=== PATIENT | female | born 1945 | race Caucasian/White ===

== ENCOUNTER 2016-09-25 05:55 | Inpatient (IN) | payer MEDICARE, BC ==
[~2016-09-25 05:55] MED LIST: Buffered Lidocaine 1% SYR 3ML* 3 ML/SYR SYRINGE INTRADERM ONE
[2016-09-25] MEDS ORDERED: ceFAZolin 2 GM PREMIX (*) 2 GM/50 ML BAG IVPB ONE (06:19)
[2016-09-25] MEDS ORDERED: Buffered Lidocaine 1% SYR 3ML* 3 ML/SYR SYRINGE ONE (06:19)
[2016-09-25] MEDS ORDERED: Famotidine IV* 10 MG/ML 2 ML (20 mg) ONE (06:19)
[2016-09-25] MEDS ORDERED: fentaNYL* 50 MCG/ML 2 ML VIAL (100 MCG VIAL) ONE (07:46)
[2016-09-25] MEDS ORDERED: Midazolam* 1 MG/ML 2 ML VIAL (2 MG) ONE (07:46)
[2016-09-25] MEDS ORDERED: Bupivacaine 0.5% SDV PF* 30 ML VIAL ONE (07:52)
[2016-09-25] MEDS ORDERED: Bupivacaine 0.5% W/EPI SDV* 30 ML VIAL ONE (07:52)
[2016-09-25] MEDS ORDERED: Dexamethasone IV* 4 MG/ML 1 ML (4 MG) ONE (08:31)
[2016-09-25] MEDS ORDERED: Ondansetron INJ* 2 MG/ML VIAL ONE ×2 (08:31→16:03)
[2016-09-25] MEDS ORDERED: Propofol* 10 MG/ML 20 ML BTL IV PUSH ONE (08:31)
[2016-09-25] MEDS ORDERED: Succinylcholine* 20 MG/ML 10 ML VIAL ONE (08:31)
[2016-09-25] MEDS ORDERED: Lidocaine 2% MPF* 2 ML VIAL ONE (08:31)
[2016-09-25] MEDS ORDERED: Phenylephrine IV* 40 MCG/ML 10 ML SYRINGE ONE ×2 (08:32→09:50)
[2016-09-25] MEDS ORDERED: EPHEDrine (Pressors)* 50 MG/ML VIAL ONE ×2 (08:57→10:53)
[2016-09-25] MEDS ORDERED: Metoclopramide IV* 5 MG/ML 2 ML VIAL IV PRN (10:13)
[2016-09-25] MEDS ORDERED: Scopolamine 1.5 mg* PATCH TRANSDERM PRN (10:13)
[2016-09-25] MEDS ORDERED: diPHENhydraMINE IV* 50 MG/ML 1 ml VIAL (BENADRYL) IV PRN (12:47)
[2016-09-25] MEDS ORDERED: oxyCODONE/Acetamin 5/325 MG* TAB PO PRN (12:47)
[2016-09-25] MEDS ORDERED: Ondansetron INJ* 2 MG/ML VIAL IV PRN (12:47)
[2016-09-25] MEDS ORDERED: oxyCODONE TAB* 5 MG TAB PO PRN (12:47)
[2016-09-25] MEDS ORDERED: Acetaminophen TAB* 325 MG PO PRN (12:47)
[2016-09-25] MEDS ORDERED: Enoxaparin(*) 40 MG/0.4 ML SYR SUBCUT SCH (13:00)
--- NOTE | 2016-09-25 14:43 | RAD ---
INDICATION: Traumatic fracture proximal right humerus operative reduction and internal fixation, intraoperative guidance. COMPARISON: Comparison is made with a prior x-ray study of the right humerus from September 13, 2016. TECHNIQUE: 37.9 seconds of intermittent fluoroscopic guidance were provided and 5 spot films of the right humerus were obtained in the operating room. FINDINGS: The films demonstrate placement of a plate along the lateral aspect of the proximal humerus spanning the fracture fragments transfixed with multiple screws. There are 2 screws deep to the surgical plate likely representing interfragmentary screws. IMPRESSION: INTRAOPERATIVE CONTROL FILMS. CPT II Codes: 6045F
[2016-09-25 15:35] LABS: Comments Flag Yes; Hematocrit 29 % (35-47); Hemoglobin 9.5 g/dl (12.0-16.0)
[2016-09-25] MEDS: ceFAZolin 1 GM in Dextrose (*) 1 GM/50 ML BAG IVPB SCH (17:24)
[2016-09-25] MEDS: Enoxaparin(*) 40 MG/0.4 ML SYR SUBCUT SCH (17:31)
[2016-09-25] MEDS ORDERED: Sevoflurane* 1 BTL ONE (18:44)
[2016-09-25] MEDS: Docusate CAP* 100 MG PO SCH (20:32)
[2016-09-25] MEDS: Metoprolol Tartrate TAB* 50 mg PO SCH (20:32)
[2016-09-25] MEDS: Latanoprost 0.005%* 2.5 ml BTL BOTH EYES SCH (20:33)
[2016-09-26] MEDS: ceFAZolin 1 GM in Dextrose (*) 1 GM/50 ML BAG IVPB SCH ×2 (00:30→09:20)
--- NOTE | 2016-09-26 01:04 | OP ---
DATE OF OPERATION: 09/25/16 - ROOM #333 DATE OF : 47 SURGEON: Marv Potter MD VP RESEARCH: MERVAT [place] ANESTHESIOLOGIST: Dr. Wagoner. ANESTHESIA: General with block. 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 OPERATIVE PROCEDURE: Open repair of right proximal humerus nonunion with allograft bone graft. INDICATIONS: Lakeisha fractured her right proximal humerus about 2-1/2 months ago. 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 It has really limited her ability use to the arm and caused her disability in the arm. She is in quite a bit of pain. We talked about risks and benefits and she elected to proceed with repair of the right humerus nonunion. ESTIMATED BLOOD LOSS: 500 mL. COMPLICATIONS: None. FINDINGS: Oligotrophic nonunion with miller motion at the nonunion site. There was also some loss of medial calcar after the shaft was reduced. DESCRIPTION OF PROCEDURE: Lakeisha was seen in the preoperative holding area and the correct site and side were marked. We came back to the operating room where the block was performed and then anesthesia was induced. The patient was positioned in the beach chair position and the arm was prepped and draped in the usual fashion. A formal time-out was performed. A standard anterolateral incision was made from the coracoid process down the lateral border of the biceps about three-quarters the length of the arm. Dissection was carried down through the subcutaneous tissue to the deltopectoral fascia. This was split and there were quite a few very large perforators coming to the cephalic vein. Ultimately, the level of the distal deltopectoral groove got into one of these perforators and I ultimately ended up tying off that segment of the cephalic vein and cauterizing the bleeder. I then went ahead and continued to split the fascia, the rest of the length of the arm. Dissection was carried down very carefully. She was very oozy until I had to go slow and cauterize all the bleeders. Ultimately we got down and I opened the interval between the biceps and the brachialis. The brachialis was split and subperiosteal dissection at this point revealed the nonunion. I released a little bit of the anterior insertion of the triceps tendon in order to facilitate exposure. I then went ahead and cleaned up the edges of the nonunion. Again, it was an oligotrophic nonunion and there was new bone formation but nothing was stable and there was miller motion at the nonunion site. I took a little bit of time but I was able to clean up and get back to fresh and healthy bone edges. There was a long anterolateral spike. I used this to obtain an anatomic cortical read in this area. Two 3.5 mm lag screws were placed and excellent compression was obtained. With the humerus back in continuity I was able to at this point bring in the long Synthes proximal humerus locking plates. This was positioned and secured with some K-wires. I then went ahead and placed the proximal and distal screws. At this point, I checked fluoroscopy and I did not like the position of the plate. I thought it was too proximal and would impinge and so I went ahead and removed the plate and shifted the plate about 1 cm distal. Again, I wired the plate and checked the fluoroscopy, I was much happier with the position of the plate, so I went ahead and fixed it with all the proximal screws including a couple of kickstand screws and then the plate was secured distally with cortical and I believe one locking screw distally. The plate fit much more nicely on the bone, everything looked good. After the debridement of the nonunion, there was a bit of a deficit in the medial calcar where she was having motion at the nonunion. I went ahead and at this point took 15 mL of cancellous Allograft chips and packed these into the nonunion site. Everything looked good, so I went ahead and irrigated and I closed the deltopectoral fascia with some 2-0 Polysorb suture. The subcutaneous tissue and skin was reapproximated with buried 3-0 Polysorb sutures and then the skin was closed with steve. Arm was then washed and dried and the wounds were dressed with Xeroform, 4x4's, ABD's, Bharat wraps distally and the dressings were secured with foam tape proximally. She was then placed in the sling, woken back up and taken to the recovery room in stable condition. [id number]/[facility] #: [id number] SAMANTHA
[2016-09-26 06:40] LABS: BUN/Creatinine Ratio 25.9 (8-20); Calcium 8.6 mg/dL (8.6-10.3); EGFR African American 61.9 (>60); EGFR Non-African American 48.1 (>60); Potassium 4.1 mmol/L (3.5-5.0)
[2016-09-26] MEDS: oxyCODONE/Acetamin 5/325 MG* TAB PO PRN ×3 (06:54→15:38)
[2016-09-26] MEDS: Metoprolol Tartrate TAB* 50 mg PO SCH ×2 (09:22→19:48)
[2016-09-26] MEDS: Docusate CAP* 100 MG PO SCH ×2 (09:22→19:48)
[2016-09-26] MEDS: Allopurinol TAB* 300 MG PO SCH (09:22)
[2016-09-26] MEDS: Hydrochlorothiazide TAB* 25 MG PO SCH (09:23)
[2016-09-26] MEDS: Vitamin THERAPEUTIC TAB PO SCH (09:23)
--- NOTE | 2016-09-26 12:28 | PN ---
Progress Note - Progress Note SOAP: Subjective: [Pt was sitting up in chair when she was seen this morning. Pt states that she is not in any pain so long as she uses her pain medication. Pt states that she had a tough night last night. She states that she would like to not be discharged today and feels she would benefit from one more night in the hospital. ] Objective: [General: Pt is awake, alert and oriented. In no acute distress MSK: RUE: pt has sensation to light touch in RUE with the exception of the tip of her thumb. Tip of pts thumb has slightly decreased sensitivity. Pt is able to wiggle fingers. 2+ radial pulse. ] Vital Signs Temp 98.0 F 09/26/16 11:39 Pulse 94 09/26/16 11:39 Resp 20 09/26/16 11:39 BP 122/48 09/26/16 11:39 Pulse Ox 90 09/26/16 11:39 Intake & Output 09/25/16 09/26/16 09/26/16 18:59 06:59 18:59 Intake Total 2450 1385 790 Output Total 650 500 350 Balance 1800 885 440 Weight 249 lb Intake: IV Fluids 2450 980 350 LR 2300 980 350 Lactated Ringer's 150 IVPB 105 Kefzol 105 Oral 300 440 Output: Urine 150 500 350 Estimated Blood Loss 500 Other: # Bowel Movements 0 Assessment: [POD 1 Open repair of R proximal humerus nonunion w/allograft bone graft] Plan: [Continue PT/OT Continue current pain management D/C tomorrow. ]
[2016-09-26] MEDS: Enoxaparin(*) 40 MG/0.4 ML SYR SUBCUT SCH (15:39)
[2016-09-26] MEDS: Latanoprost 0.005%* 2.5 ml BTL BOTH EYES SCH (19:53)
[2016-09-27] MEDS: oxyCODONE/Acetamin 5/325 MG* TAB PO PRN ×2 (00:36→15:53)
--- NOTE | 2016-09-27 07:53 | PN ---
Progress Note - Progress Note SOAP: Subjective: [71 y/o female s/p ORIF proximal humerus 09/25/2016. Patient resting comfortably in bed, states pain controlled well with pain medication, no side effects. OK with D/C to home today. No questions ] Objective: [General - laying in bed comfortably, no acute distress MSK- R hand with <@ cap refill, + sensation to light touch, radial, ulnar pulses 2+ b/l. minimal swelling of fingers noted, dressing intact. ] Active Medications Generic Name Dose Route Start Last Admin Trade Name Freq PRN Reason Stop Dose Admin Acetaminophen 650 mg 09/25/16 12:47 Tylenol Tab* PO Q4H PRN PAIN OR TEMPERATURE Allopurinol 300 mg 09/26/16 09:00 09/26/16 09:22 Zyloprim Tab* PO 300 mg QAM FRANCISCA Administration Diphenhydramine HCl 25 mg 09/25/16 12:47 Benadryl Iv* IV Q6H PRN itching Docusate Sodium 100 mg 09/25/16 21:00 09/26/16 19:48 Colace Cap* PO 100 mg BID FRANCISCA Administration Enoxaparin Sodium 40 mg 09/25/16 17:30 09/26/16 15:39 Lovenox(*) SUBCUT 40 mg 1700 FRANCISCA Administration Hydrochlorothiazide 25 mg 09/26/16 09:00 09/26/16 09:23 Hydrodiuril Tab* PO Not Given QAM FRANCISCA Lactated Ringer's 1,000 mls @ 100 mls/hr 09/25/16 13:00 09/26/16 03:05 Lactated Ringers 1000 Ml Bag* IV 100 mls/hr PER RATE FRANCISCA Administration Lactulose 30 ml 09/25/16 12:47 Lactulose* PO Q6H PRN constipation Latanoprost 1 drop 09/25/16 21:00 09/26/16 19:53 Xalatan 0.005%* BOTH EYES 1 drop BEDTIME FRANCISCA Administration Metoprolol Tartrate 50 mg 09/25/16 21:00 09/26/16 19:48 Lopressor Tab* PO 50 mg BID FRANCISCA Administration Multivitamins 1 tab 09/26/16 09:00 09/26/16 09:23 Theragran Tab* PO Not Given DAILY FRANCISCA Ondansetron HCl 4 mg 09/25/16 12:47 Zofran Inj* IV Q6H PRN nausea Oxycodone HCl 10 mg 09/25/16 12:47 Roxycodone Tab* PO Q4H PRN PAIN - UNCONTROLLED Oxycodone/Acetaminophen 1 tab 09/25/16 12:47 09/26/16 01:06 Percocet 5/325 Tab* PO 1 tab Q3H PRN Administration PAIN - MODERATE Oxycodone/Acetaminophen 2 tab 09/25/16 12:47 09/27/16 00:36 Percocet 5/325 Tab* PO 2 tab Q3H PRN Administration PAIN - SEVERE Vital Signs Temp 98.4 F 09/27/16 03:14 Pulse 101 09/27/16 03:14 Resp 18 09/27/16 03:14 BP 110/37 09/27/16 03:14 Pulse Ox 95 09/27/16 03:18 Intake & Output 09/26/16 09/27/16 09/27/16 18:59 06:59 18:59 Intake Total 990 440 Output Total 350 130 Balance 640 310 Intake: IV Fluids 350 LR 350 Oral 640 440 Output: Urine 350 130 Other: Estimated Void Medium # Voids 1 Assessment: [71 y/o female s/p ORIF proximal humerus 09/25/2016] Plan: [- DVT proph- lovnox, increased activity at home - Pain control with Percocet - FOllow up with DR. Potter within 1-2 weeks or sooner with concerns - Do not get dressing wet, sling for comfort ]
[2016-09-27] MEDS: Vitamin THERAPEUTIC TAB PO SCH (10:33)
[2016-09-27] MEDS: Docusate CAP* 100 MG PO SCH (10:33)
[2016-09-27] MEDS: Allopurinol TAB* 300 MG PO SCH (10:34)
[2016-09-27] MEDS: Hydrochlorothiazide TAB* 25 MG PO SCH (10:34)
[2016-09-27] MEDS: Metoprolol Tartrate TAB* 50 mg PO SCH (10:34)
--- NOTE | 2016-09-27 14:48 | RAD ---
INDICATION: Right humeral nonunion COMPARISON: September 25, 2016; September 13, 2016 TECHNIQUE: AP and lateral views were obtained. FINDINGS: There is a cortical plate and screws which bridge the proximal humeral fracture. The fracture fragments are in normal position and alignment. There are soft tissue changes in addition to surgical steve consistent with recent surgery. IMPRESSION: ORIF HUMERAL FRACTURE
[2016-09-27] MEDS: Enoxaparin(*) 40 MG/0.4 ML SYR SUBCUT SCH (15:56)
[2016-09-27 16:26] VITALS: BP 112/37
--- NOTE | 2016-09-27 18:59 | PN ---
Progress Note - Progress Note Note: Mrs. Valdez had a fall today while in the hospital. She states that she did not get dizzy or lose consciousness but simply slipped. She landed on the operative arm. I spoke with her on the phone and my physician first assistant manager evaluated her as well. She denies any pain in her legs, head, neck, back, or nonoperative arm. She has been able to walk and mobilize. I checked a right humerus xray and the alignment and hardware are preserved. She will be discharged home. Certainly, if there are any issues, she knows to contact me and I will see her in my office.
--- NOTE | 2016-09-30 01:45 | DS ---
DISCHARGE SUMMARY: DATE OF ADMISSION: 09/25/16 DATE OF DISCHARGE: 09/27/16 CHIEF COMPLAINT: 1. 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 2. Hypertension. 3. History of pneumonia with acute kidney injury. 4. Gout. 5. Hyperlipidemia. 6. Hematuria. DISCHARGE DIAGNOSES: 1. Status post open repair of right proximal humerus nonunion with allograft bone graft. 2. Hypertension. 3. Pneumonia with acute kidney injury. 4. Gout. 5. Hyperlipidemia. 6. Hematuria. PROCEDURE: ORIF with bone graft of right proximal humerus. BRIEF HISTORY: Mrs. Valdez is a very pleasant 71-year-old female who is followed by Dr. Potter for right proximal non-union, and she underwent an open repair of her right proximal humerus nonunion with allograft bone graft on 09/25. HOSPITAL COURSE: The patient was admitted to [facility] on 09/25/16 , where she underwent an open repair of her right proximal humerus nonunion with allograft bone graft by Dr. Potter. Postoperatively, she recovered in the surgical short-stay unit. She was tolerating a regular diet without difficulty and was controlled with Percocet adequately. Her labs and vital signs remained stable. She was able to ambulate without difficulty and was using a sling for comfort. On 09/27/16, the patient experienced a fall. X-rays were obtained, which showed changes consistent with recent surgery, but no fracture, so the patient was discharged home on postoperative day #2 when she was orthopedically and medically stable for discharge to go home. PHYSICAL EXAMINATION: General: Well-appearing, no acute distress, alert and oriented x2. Vital Signs: Temperature 98.4, pulse 101, respirations 18, blood pressure 110/37, pulse oxygenation 95% on room air. Musculoskeletal: Right hand with 2+ cap refill. Positive sensation to light touch bilaterally. Radial and ulnar pulses 2+ bilaterally. Minimum swelling of fingers noted. Dressing intact with no drainage noted. DISCHARGE MEDICATIONS: 1. Allopurinol 300 mg p.o. q.a.m. 2. Calcitriol 5000 units q.a.m. 3. Coenzyme Q10 400 mg p.o. q.a.m. 4. Vitamin B12 1000 mcg every 2 days p.o. 5. Colace 100 mg p.o. b.i.d. 6. Echinacea 1 cap p.o. q.a.m. 7. Hydro 25 mg p.o. q.a.m. 8. Ibuprofen 800 mg p.o. q.8 hours p.r.n. 9. Lactobacillus 1 tablet q.a.m. 10. 0.005% ophthalmic drops 1 drop to bilateral eyes q.h.s. 11. Claritin 10 mg p.o. q.a.m. 12. Lopressor 50 mg p.o. b.i.d. 13. Pravachol 40 mg p.o. q.p.m. 14. Ultram 50 mg p.o. daily. 15. Percocet 5/325 one to two tablets p.o. p.r.n. pain. DISCHARGE INSTRUCTIONS: Mr. Valdez is a very pleasant 71-year-old female, status post open fixation and bone graft of the proximal humerus nonunion fracture. The patient will follow up with Dr. Potter in approximately 1 to 2 weeks unless problems result. She will continue to keep her dressing dry and keep her arm elevated to prevent swelling and pain. She will ice as necessary. She will continue with her pain medications. She will call for any questions or concerns that she may have. She will report to the emergency room immediately should she develop shortness of breath or chest pain. MERVAT PERSON [id number]/[facility] #: [id number] MTDD
== END 2016-09-27 16:50 | disposition home or self-care (01) | DRG 493 ==
LOC: AA 05:55 → SSU 12:47
PROVIDERS: ADMIT Orthopaedic Surgery Hand Surgery; ATTEND Orthopaedic Surgery Hand Surgery
PROC: 0PSC04Z Reposition Right Humeral Head with Internal Fixation Device, Open Approach (ICD-10-PCS; 2016-09-25)
PROC: 0PUC0KZ Supplement Right Humeral Head with Nonautologous Tissue Substitute, Open Approach (ICD-10-PCS; principal; 2016-09-25 07:45)
DX: S42.211K Unspecified displaced fracture of surgical neck of right humerus, subsequent encounter for fracture with nonunion (principal); Z68.41 Body mass index [BMI] 40.0-44.9, adult; M51.26 Other intervertebral disc displacement, lumbar region; M54.16 Radiculopathy, lumbar region; S42.391K Other fracture of shaft of right humerus, subsequent encounter for fracture with nonunion; W01.0XXA Fall on same level from slipping, tripping and stumbling without subsequent striking against object, initial encounter; E04.1 Nontoxic single thyroid nodule; M10.9 Gout, unspecified; Y92.239 Unspecified place in hospital as the place of occurrence of the external cause; W19.XXXD Unspecified fall, subsequent encounter; E66.9 Obesity, unspecified; Z88.1 Allergy status to other antibiotic agents; Z88.5 Allergy status to narcotic agent; Z88.8 Allergy status to other drugs, medicaments and biological substances; Z91.018 Allergy to other foods; Z86.718 Personal history of other venous thrombosis and embolism; Z86.711 Personal history of pulmonary embolism; Z87.01 Personal history of pneumonia (recurrent)
CPT/HCPCS: 1036F; 36415; 76001; 76700; 80048; 83010; 83615; 85014; 85018; 85025; 85045; 86705; 86706; 86803; 87340; 88184; 88185; 88188; 88189; 94760; 99204; 99212; A9270-GY; C1713; C1776; G0463; G8427; J0330; J0690; J1100; J1650; J2250; J2405; J2704; J3010

== ENCOUNTER 2018-02-26 08:19 | Inpatient (IN) | payer MEDICARE, BC ==
[2018-02-26] MEDS ORDERED: Lidocaine 2.5%/Prilocain 2.5%* 5 GM TUBE TOPICAL ONE (09:29)
[2018-02-26 12:38] LABS: ABS Basophils 0 10^3/ul (0-0.2); ABS Eosinophils 0.1 10^3/ul (0-0.6); ABS Lymphocytes 1.3 10^3/ul (1.0-4.8); ABS Monocytes 0.4 10^3/ul (0-0.8); ABS Neutrophils 3.2 10^3/ul (1.5-7.7); ABS Nucleated RBC 0 10^3/ul; Eosinophil % 1.4 % (0-6); Hematocrit 21 % (35-47); Hemoglobin 6.9 g/dl (12.0-16.0); Lymphocyte % 26.2 % (25-47); Mean Corpuscular HGB Conc 34 g/dl (31-36); Mean Corpuscular Hemoglobin 34 pg (27-31); Mean Corpuscular Volume 100 fL (80-97); Mean Platelet Volume 9.7 um3 (7.4-10.4); Nucleated Red Blood Cells % 0; Platelet Count 115 10^3/ul (150-450); Red Blood Count 2.06 10^6/ul (4.00-5.40); Red Cell Distribution Width 16 % (10.5-15); White Blood Count 5.1 10^3/ul (3.5-10.8)
[2018-02-26 12:49] LABS: INR 1.02 (0.77-1.02)
[2018-02-26 13:02] LABS: EGFR Non-African American 78.6 (>60)
[2018-02-26] MEDS ORDERED: KCL 20 MEQ/100 ML IVPREMIX* 20 MEQ/100 ML BAG IV ONE (13:17)
[2018-02-26] MEDS ORDERED: Ondansetron TAB* 4 MG PO PRN (14:57)
[2018-02-26] MEDS ORDERED: Prochlorperazine TAB* 5 MG PO PRN (14:57)
[2018-02-26] MEDS ORDERED: traMADol TAB* 50 MG PO PRN (14:57)
[2018-02-26] MEDS: NS 0.9% 1000 ML* 1,000 ML IV SCH (17:11)
[2018-02-26] MEDS: Metoprolol Tartrate TAB* 100 MG TAB PO SCH (17:41)
[2018-02-26] MEDS: Latanoprost 0.005%* 2.5 ml BTL BOTH EYES SCH (19:46)
[2018-02-26] MEDS: Docusate CAP* 100 MG PO SCH (19:46)
[2018-02-26] MEDS: Acetaminophen TAB* 325 MG PO PRN (19:48)
[2018-02-26] MEDS: Acyclovir* 400 MG TAB PO SCH (20:08)
[2018-02-26] MEDS: KCL 20 MEQ/100 ML IVPREMIX* 20 MEQ/100 ML BAG IV SCH (21:32)
[2018-02-26 21:51] LABS: Hematocrit 21 % (35-47); Hemoglobin 7.2 g/dl (12.0-16.0)
--- NOTE | 2018-02-26 23:38 | HP ---
CC: Dr. Baca; Dr. Little * HISTORY AND PHYSICAL: DATE OF ADMISSION: 02/26/18 PRIMARY CARE PROVIDER: Dr. Little. ONCOLOGIST: Dr. Baca. CHIEF COMPLAINT: Rectal bleeding. HISTORY OF PRESENT ILLNESS: Ms. Valdez is a 72-year-old female who was admitted to [facility] on 02/22/18 through 02/25/18 with a diagnosis of rectal bleeding from hemorrhoids. The patient received 1 unit of packed red blood cells as she was symptomatic from her anemia. 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 The patient is a very poor historian and is unable to tell me more about her leukemia. She states that she started chemotherapy approximately 6 weeks ago, but she is not completely clear on this. The patient states that she was discharged home yesterday. At approximately 5 a.m. on the day of admission, the patient woke up from sleep needing to have a bowel movement. She went into the bathroom and states that she let loose numerous blood clots and liquid blood. She states that the blood was bright red in color. The patient states that she does not know what her hemoglobin was when she left [facility]. She has had no bowel movement since this morning. She does admit to some lightheadedness with movement. She denies any chest pain, shortness of breath and no history of blood thinner use. PAST MEDICAL HISTORY: 1. Hypertension. 2. Leukemia. 3. Hyperlipidemia. 4. Gout. 5. Allergic rhinitis. PAST SURGICAL HISTORY: 1. x2. 2. L4-L5 laminectomy. 3. ORIF, right proximal humerus fracture. MEDICATIONS: 1. Metoprolol tartrate 50 mg p.o. daily. 2. Tramadol 50 mg p.o. b.i.d. p.r.n. pain. 3. CoQ10 10 mg p.o. daily. 4. Senna 2 tabs p.o. daily. 5. Compazine 5 mg p.o. 4 times daily p.r.n. nausea. 6. MiraLAX 17 g p.o. b.i.d. 7. Zofran 8 mg p.o. t.i.d. p.r.n. nausea. 8. Metoprolol tartrate 100 mg p.o. q.p.m. 9. Methylcellulose 1000 mg p.o. daily. 10. Loratadine 10 mg p.o. daily. 11. Xalatan 1 drop to both eyes at bedtime. 12. Hydrocortisone ointment apply topically twice daily. 13. Fluconazole 400 mg p.o. daily. 14. Colace 200 mg p.o. b.i.d. 15. Vitamin B12 1000 mcg p.o. twice weekly. 16. Vitamin D 5000 units p.o. twice weekly. 17. Acyclovir 400 mg p.o. b.i.d. ALLERGIES: HONEY, LYRICA, CEFUROXIME, ERYTHROMYCIN, LEVAQUIN, SARINA, MILK, MORPHINE, PEPPER, RASPBERRIES, PUNCH, and ONIONS. FAMILY HISTORY: Mom in her 70s of heart failure. Dad at age 78 of colon cancer. SOCIAL HISTORY: The patient is a lifelong nonsmoker. She does not drink alcohol. 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 She is , she has 2 children. She indicates that her , Mario, is her healthcare proxy. REVIEW OF SYSTEMS: A complete 11-system review of systems is obtained. Pertinent positives and negatives are as per HPI and in addition, the patient does state that she is constipated related to her chemotherapy medication. PHYSICAL EXAMINATION GENERAL: The patient is a well-developed, elderly female seen lying in the stretcher, in no acute distress. VITAL SIGNS: Blood pressure 164/88, pulse 85, respirations 18, temp 97.8, O2 sat 95% on room air. HEENT: Pupils are equal and round. Extraocular muscles are intact. Oropharynx is clear. Oral mucosa is moist. There is no submandibular, cervical or supraclavicular adenopathy. Thyroid is not enlarged. No thyroid nodules are noted. PULMONARY: Lungs are clear to auscultation bilaterally. CARDIAC: Normal S1, S2. Regular rate and rhythm. I do not appreciate any murmurs. There is trace left lower extremity pitting edema. ABDOMEN: Bowel sounds present. Abdomen is soft, nontender, nondistended. MUSCULOSKELETAL: There is no cyanosis or clubbing of the digits. There is full active range of motion of all 4 extremities. NEURO: Cranial nerves II through XII are grossly intact. Sensation is intact to light touch throughout. Strength is 5/5 and symmetric to both upper and lower extremities bilaterally. SKIN: Warm and dry. She is pale. There are no rashes. PSYCH: The patient is alert and oriented x3. Affect appears appropriate. DIAGNOSTIC STUDIES/LAB DATA: WBC 5.1, hemoglobin 6.9, hematocrit 21, platelets 115. INR 1.02. Sodium 141, potassium 2.9, chloride 107, CO2 of 28, BUN of 11, creatinine 0.73, glucose 102. Calcium 8.6. Bilirubin 0.3, AST 11, ALT 10, alk phos 83. Albumin 2.6. EKG reveals normal sinus rhythm with flat inverted T waves in the anterior leads , no acute ST-T wave abnormalities. ASSESSMENT AND PLAN: Ms. Valdez is a 72-year-old female with a history of leukemia who currently has her chemotherapy on hold due to low counts, hypertension, hyperlipidemia and gout who presents to the emergency room with complaints of rectal bleeding 1 day after being discharged from [facility] after being treated for hemorrhoidal bleed. 1. Rectal bleeding. This likely again represents hemorrhoidal bleeding. I am attempting to get records from [facility]. The patient does have a patient's summary that indicates, it is felt that her hemorrhoids and constipation are likely related to her chemotherapy medication and that she should remain on an aggressive bowel regimen. The patient does admit to feeling constipated. It is unclear what her hemoglobin was when she left [facility]. Her last hemoglobin in the [facility] system was from 02/16/18 and normal at 13.1 at that point. The patient will be admitted to be transfused 1 unit of packed red blood cells. A followup hemoglobin and hematocrit will be obtained later this evening. A GI consultation has been requested through the emergency room. 2. Hypertension. The patient's blood pressure is moderately elevated. For now , I am going to hold off on adjusting her antihypertensive regimen. She will be maintained on her usual home medicines and if her blood pressure is still elevated tomorrow, this can be adjusted at that time. 3. Hyperlipidemia. The patient is not on any medication for this. Therefore, this will not be addressed at this hospitalization. 4. Gout. This is not an active issue at this time. 5. Leukemia. I am trying to get records from Dr. Baca's office. 6. DVT prophylaxis. According to the Adult Thrombosis Prophylaxis Risk Factor Assessment Guide, the patient has a total risk factor score of 6, making her highest risk, however given her marked anemia and rectal bleeding, I will hold off on chemical prophylaxis, but we will utilize SCDs. 7. Code status is DNR. TIME SPENT: Sixty five minutes were spent admitting this patient. [id number]/[facility] #: [id number] SAMANTHA
[2018-02-27] MEDS: Polyethylene Glycol 3350* 17 GM PACKET PO SCH ×9 (01:25→22:52)
[2018-02-27] MEDS: KCL 20 MEQ/100 ML IVPREMIX* 20 MEQ/100 ML BAG IV SCH (01:29)
--- NOTE | 2018-02-27 03:28 | CONS ---
GASTROENTEROLOGY CONSULT: DATE: 02/26/18 CONSULTING PHYSICIAN: Priyanka Baca. REASON FOR CONSULT: Rectal bleeding. 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 She has generally been good from a gastrointestinal point of view apart from correction constipation. She says that about 8 days ago, she realized she was constipated again and took some Dulcolax and nothing came out. A Fleet enema was not effective. She concentrated on eating fruits. She began passing some blood clots about . She had more passages of that and came to the emergency room on 02/21/18. There was no GI coverage and she was transferred to [facility] arriving there on . At [facility], she received 1 unit of transfusion. Bleeding seemed to taper down and she says that she had no bowel movements at all on 02/25/18 and was discharged. She had a colonoscopy in August [address] Quick showing diffuse diverticulosis sigmoid predominating. She had another colon exam in 2015 with a transverse tubular adenoma. There is a maternal family history colon cancer with her mother dying of the disease. Her first colonoscopy in the record April [address] Guerra, again with just left-sided diverticulosis. PAST MEDICAL HISTORY: 1. Morbid obesity. 2. Gout. 3. 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 4. History of DVTs x2. 5. History of pulmonary embolism - treated with Lovenox and then warfarin 2-1/ 2 years ago. 6. History of . 7. Laminectomy. MEDICATIONS: At home: Metoprolol 50 a.m., 100 p.m. Citrucel daily B12 1000 p.o. biweekly Vitamin D Senna 2 daily. 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 Dr Little is her regular physician. She last saw her 6 months ago. REVIEW OF SYSTEMS: No history of TIA, CVA, seizures, alcohol abuse, hepatitis, jaundice. She has had pneumonia couple of times including in 1999 and 2012. She has never had any acid peptic problem. There has been no overt GI bleeding in the past. She had a humeral fracture in September 2016. She has gout. She has had a multinodular goiter. PHYSICAL EXAM: She is a somewhat pale and frail-appearing elderly woman appearing quite tired. HEENT exam shows no icterus. Mucous membranes are pale , but moist. She has no adenopathy. Breath sounds are diminished, but symmetric. Heart sounds are regular. The abdomen is quite obese with panniculus. Bowel sounds are distant, but present. The abdomen is soft and nontender. Perianal inspection shows clear hemorrhoidal bulging at the verge. A limited digital rectal was not tolerated well and was quite painful. There were no obvious asymmetry to the buttocks or any perianal abscess or induration apart from the verge. She states that she has not had a bowel movement since this morning. There was a small soft movement at 4:30 and then she passed a half cup of clots at around 5 a.m. and that was over 12 hours ago. LABORATORY DATA: Hemoglobin 6.9, hematocrit 21, platelets 115 having been above 100 since early December 2017 on 7 determinations. She was as low as 13 on the platelet count 11/24/17 and then actually between 1 and 6 the second week of October 2017. IMPRESSION: Probable hemorrhoidal bleeding or bleeding from a stercoral ulcer. She has a fair amount of distal left colon diverticulosis and bleeding from a distal diverticulum is also a consideration as it would be difficult to differentiate from the others. None of these entities are easy to get clear views on and treat with therapeutic endoscopy. It is not clear that she is up to a full colonoscopy prep. She will be placed on full liquids and priority discussed with her care team. This is clearly a challenging situation. [id number]/[facility] #: [id number] [facility]ITAL[facility]lya
[2018-02-27 04:33] LABS: Hematocrit 24 % (35-47); Hemoglobin 8.2 g/dl (12.0-16.0); Mean Corpuscular HGB Conc 34 g/dl (31-36); Mean Corpuscular Hemoglobin 33 pg (27-31); Mean Corpuscular Volume 97 fL (80-97); Mean Platelet Volume 9.5 um3 (7.4-10.4); Platelet Count 128 10^3/ul (150-450); Red Blood Count 2.48 10^6/ul (4.00-5.40); Red Cell Distribution Width 19 % (10.5-15); White Blood Count 4.8 10^3/ul (3.5-10.8)
[2018-02-27 05:09] LABS: EGFR Non-African American 79.9 (>60)
[2018-02-27] MEDS: NS 0.9% 1000 ML* 1,000 ML IV SCH ×2 (07:12→17:33)
[2018-02-27] MEDS: Acyclovir* 400 MG TAB PO SCH ×2 (08:25→22:51)
[2018-02-27] MEDS: Fluconazole 100 MG TAB* TAB PO SCH (08:25)
[2018-02-27] MEDS: Senna TAB PO SCH (08:25)
[2018-02-27] MEDS: Docusate CAP* 100 MG PO SCH ×2 (08:25→22:51)
[2018-02-27] MEDS: Acetaminophen TAB* 325 MG PO PRN ×2 (08:46→17:30)
[2018-02-27] MEDS ORDERED: Metoprolol Tartrate TAB* 50 mg PO SCH (09:00)
--- NOTE | 2018-02-27 10:43 | PN ---
Progress Note - Progress Note Date of Service: 02/27/18 SOAP: Subjective: [72 yo female with AML who presented with lower GI bleed. She was admitted over the weekend at [facility] with large volume BRBPR. She had a normal CT during that admission, transfused 1U PRBCs, no endoscopy performed. Bleeding was presumed to be hemorrhoidal. She was home ~12hrs and had another large volume of bleeding. She subsequently presented here with Hgb 6.9 g/dl ( 13 ~10 days ago). She received 1U PRBCs yesterday. Seen by Dr Juarez. Overnight, there has been no additional bleeding. Soft brown stool this am. She has rectal pain, describes it as stinging. No abd pain, n/v. No fevers. No new symptoms.] Objective: [ Laboratory Results - last 24 hr 02/26/18 02/26/18 02/26/18 12:20 12:20 12:20 WBC 5.1 RBC 2.06 L Hgb 6.9 L Hct 21 L MCV 100 H MCH 34 H MCHC 34 RDW 16 H Plt Count 115 L MPV 9.7 Neut % (Auto) 63.5 Lymph % (Auto) 26.2 [place] % (Auto) 8.5 H Eos % (Auto) 1.4 Baso % (Auto) 0.4 Absolute Neuts (auto) 3.2 Absolute Lymphs (auto) 1.3 Absolute Monos (auto) 0.4 Absolute Eos (auto) 0.1 Absolute Basos (auto) 0 Absolute Nucleated RBC 0 Nucleated RBC % 0 INR (Anticoag Therapy) 1.02 APTT 25.0 L Sodium 141 Potassium 2.9 L Chloride 107 Carbon Dioxide 28 Anion Gap 6 BUN 11 Creatinine 0.73 Est GFR ( Amer) 95.1 Est GFR (Non-Af Amer) 78.6 BUN/Creatinine Ratio 15.1 Glucose 102 H Calcium 8.6 Total Bilirubin 0.30 AST 11 L ALT 10 Alkaline Phosphatase 83 Total Protein 4.8 L Albumin 2.6 L Globulin 2.2 Albumin/Globulin Ratio 1.2 Blood Type Antibody Screen Crossmatch 02/26/18 02/26/18 02/27/18 12:20 21:40 04:28 WBC RBC Hgb 7.2 L Hct 21 L MCV MCH MCHC RDW Plt Count MPV Neut % (Auto) Lymph % (Auto) [place] % (Auto) Eos % (Auto) Baso % (Auto) Absolute Neuts (auto) Absolute Lymphs (auto) Absolute Monos (auto) Absolute Eos (auto) Absolute Basos (auto) Absolute Nucleated RBC Nucleated RBC % INR (Anticoag Therapy) APTT Sodium 140 Potassium 4.1 Chloride 108 Carbon Dioxide 27 Anion Gap 5 BUN 10 Creatinine 0.72 Est GFR ( Amer) 96.6 Est GFR (Non-Af Amer) 79.9 BUN/Creatinine Ratio 13.9 Glucose 98 Calcium 8.8 Total Bilirubin AST ALT Alkaline Phosphatase Total Protein Albumin Globulin Albumin/Globulin Ratio Blood Type O Positive Antibody Screen Negative Crossmatch See Detail 02/27/18 04:28 WBC 4.8 RBC 2.48 L Hgb 8.2 L Hct 24 L MCV 97 MCH 33 H MCHC 34 RDW 19 H Plt Count 128 L MPV 9.5 Neut % (Auto) Lymph % (Auto) [place] % (Auto) Eos % (Auto) Baso % (Auto) Absolute Neuts (auto) Absolute Lymphs (auto) Absolute Monos (auto) Absolute Eos (auto) Absolute Basos (auto) Absolute Nucleated RBC Nucleated RBC % INR (Anticoag Therapy) APTT Sodium Potassium Chloride Carbon Dioxide Anion Gap BUN Creatinine Est GFR ( Amer) Est GFR (Non-Af Amer) BUN/Creatinine Ratio Glucose Calcium Total Bilirubin AST ALT Alkaline Phosphatase Total Protein Albumin Globulin Albumin/Globulin Ratio Blood Type Antibody Screen Crossmatch Acetaminophen (Tylenol Tab*) 650 mg PO Q4H PRN PRN Reason: FEVER/PAIN Last Admin: 02/27/18 08:46 Dose: 650 mg Acyclovir (Zovirax Tab*) 400 mg PO BID [facility] Last Admin: 02/27/18 08:25 Dose: 400 mg Docusate Sodium (Colace Cap*) 200 mg PO BID [facility] Last Admin: 02/27/18 08:25 Dose: 200 mg Fluconazole (Diflucan 100 Mg Tab*) 400 mg PO DAILY [facility] Last Admin: 02/27/18 08:25 Dose: 400 mg Hydrocortisone (Anusol Hc Supp*) 25 mg OK BID [facility] Sodium Chloride (Ns 0.9% 1000 Ml*) 1,000 mls @ 100 mls/hr IV PER RATE [facility] Last Admin: 02/27/18 07:12 Dose: 100 mls/hr Latanoprost (Xalatan 0.005%*) 1 drop BOTH EYES BEDTIME [facility] Last Admin: 02/26/18 19:46 Dose: 1 drop Lidocaine (Xylocaine 5% Oint*) 1 applic TOPICAL Q2H PRN PRN Reason: rectal pain Metoprolol Tartrate (Lopressor Tab*) 50 mg PO QAM [facility] Last Admin: 02/27/18 08:26 Dose: 50 mg Metoprolol Tartrate (Lopressor Tab*) 100 mg PO QPM [facility] Last Admin: 02/26/18 17:41 Dose: 100 mg Ondansetron HCl (Zofran Tab*) 8 mg PO TID PRN PRN Reason: VOMITING Polyethylene Glycol/Electrolytes (Miralax*) 17 gm PO BID [facility] Last Admin: 02/27/18 08:26 Dose: 17 gm Prochlorperazine (Compazine Tab*) 5 mg PO QID PRN PRN Reason: VOMITING Senna (Senokot Tab*) 2 tab PO DAILY [facility] Last Admin: 02/27/18 08:25 Dose: 2 tab Tramadol HCl (Ultram*) 50 mg PO BID PRN PRN Reason: PAIN Vital Signs: Temp Pulse Resp BP Pulse Ox 98.4 F 80 24 160/80 98 02/26/18 23:45 02/27/18 07:49 02/27/18 07:49 02/27/18 07:49 02/26/18 23:45 Exam: Gen: 72 yo female in NAD HEENT: MMM CV: RRR, no m/r/g Resp: lungs CTA, no w/c/r Abd: soft, nontender, nondistended, normoactive BS present Rectum: inflammed external hemorrhoid noted, internal exam not completed Ext: trace edema] Assessment: [72 yo female with AML, currently on consolidation therapy with azacitadine who presents with lower GI bleed with rather significant blood loss. No bleeding overnight. Bleeding source likely hemorrhoidal v diverticular.] Plan: [1. GI bleed - hemorrhoidal v diverticular - appreciate GI consult - unsure of plans for flex sig/colonoscopy at this time - cont clear liquid diet - cont to monitor H&H, transfuse for Hgb <8 or if new symptoms develop - start topical lidocaine and hydrocortisone suppositories for hemorrhoids 2. AML Dispo: monitor H&H, possible flex sig or colonoscopy tomorrow (TBD by GI), possible dc home tomorrow if no additional bleeding]
[2018-02-27] MEDS: Hydrocortisone SUPP* 25 MG SUPP (2.5%) PR SCH ×2 (11:49→22:51)
[2018-02-27] MEDS ORDERED: PEG 3000 GI LAVAGE* 1 GALLON PO ONE (14:30)
[2018-02-27 14:35] LABS: Hematocrit 21 % (35-47); Hemoglobin 7.2 g/dl (12.0-16.0)
[2018-02-27] MEDS: Metoprolol Tartrate TAB* 100 MG TAB PO SCH (17:31)
--- NOTE | 2018-02-27 21:28 | ED ---
Thais Osborn Gabriel, scribed for Tayler Valentine MD on 02/26/18 at 0859 . GI/ HPI - HPI Summary HPI Summary: This patient is a 72 year old F presenting to [facility] c/o rectal pain and bleeding that began this morning at 0500. The patient rates the pain 7/10 in severity. Patient reports hemorrhoids and constipation. Patient denies ABD pain , light headedness, and dizziness. Hx acute leukemia and is currently on chemo ( Azacitidine), and in-between doses. Last dose was 6 weeks ago, she was supposed to receive another dose a week ago but it was delayed due to low neutrophil count. Receives doses from [facility] and just d/c yesterday, she received a transfusion yesterday. She had a negative CT there. She was told to expect rectal bleeding due to chemo. - History of Current Complaint Chief Complaint: EDRectalPain Time Seen by Provider: 02/26/18 08:55 Stated Complaint: ABD PAIN/PASSING BLOOD Hx Obtained From: Patient Onset/Duration: Started Hours Ago, Still Present Timing: Constant Severity: Moderate Current Severity: Moderate Pain Intensity: 7 Location of Pain: Diffuse Associated Signs and Symptoms: Positive: Constipation, External Hemorrhoids, Other: - ABD pain, light headedness, and dizziness. - Additional Pertinent History Primary Care Physician: [id number] - Allergy/Home Medications Allergies/Adverse Reactions: Allergies Allergy/AdvReac Type Severity Reaction Status Date / Time honey Allergy Severe Nausea And Verified 11/24/17 15:31 Vomiting pregabalin Allergy Severe See Comment Verified 11/24/17 15:31 cefuroxime Allergy Hives Verified 11/24/17 15:31 erythromycin base Allergy Vomiting Verified 11/24/17 15:31 levofloxacin Allergy Hives Verified 11/24/17 15:31 nicole Allergy Swelling Verified 12/19/17 13:13 Of Face,Lips,& Throat milk Allergy See Comment Verified 12/19/17 13:13 Milk Containing Products Allergy See Comment Verified 12/19/17 13:13 morphine Allergy Vomiting Verified 11/24/17 15:31 onion Allergy Stomach Verified 12/19/17 13:13 Cramps pepper (genus Capsicum) Allergy Stomach Verified 12/19/17 13:13 Cramps raspberry Allergy Swelling Verified 12/19/17 13:13 Of Face,Lips,& Throat Environmental Allergy Congestion Uncoded 11/24/17 15:31 [place] PUNCH Allergy Diarrhea Uncoded 11/24/17 15:31 ONIONS/PEPPERS (not Allergy Stomach Uncoded 11/24/17 15:31 cooked/meat) Pains, Diarrhea Home Medications: Home Medications Acyclovir* [Zovirax 200 MG CAP*] 400 mg PO BID 02/26/18 [History Confirmed 02/26] Cholecalciferol TAB* [Vitamin D TAB*] 5,000 units PO .TWICE WEEKLY 02/26/18 [ History Confirmed 02/26/18] Cyanocobalamin TAB* [Vitamin B12 TAB*] 1,000 mcg PO .TWICE WEEKLY 02/26/18 [ History Confirmed 02/26/18] Docusate CAP* [Colace Cap*] 200 mg PO BID 02/26/18 [History Confirmed 02/26/18] Fluconazole 100 MG TAB* [Diflucan 100 MG TAB*] 400 mg PO DAILY 02/26/18 [ History Confirmed 02/26/18] Hydrocortisone 1% Oint(NF) [Hydrocortisone 1% Oint (NF)] 1 applic TOPICAL BID [History Confirmed 02/26/18] LoraTADine TAB(NF) [Claritin 10 MG TAB(NF)] 10 mg PO DAILY 02/26/18 [History Confirmed 02/26/18] Methylcellulose [Citrucel] 1,000 mg PO DAILY 02/26/18 [History Confirmed ] Metoprolol Tartrate TAB* [Lopressor TAB*] 100 mg PO QPM 02/26/18 [History Confirmed 02/26/18] Ondansetron TAB* [Zofran 4 MG Tab*] 8 mg PO TID PRN 02/26/18 [History Confirmed 02/26/18] Polyethylene Glycol 3350* [Miralax*] 17 gm PO BID 02/26/18 [History Confirmed ] Prochlorperazine TAB* [Compazine Tab*] 5 mg PO QID PRN 02/26/18 [History Confirmed 02/26/18] Senna TAB* [Senokot TAB*] 2 tab PO DAILY 02/26/18 [History Confirmed 02/26/18] Ubidecarenone [Co Q-10] 10 mg PO DAILY 02/26/18 [History Confirmed 02/26/18] traMADol TAB* [Ultram*] 50 mg PO BID PRN 02/26/18 [History Confirmed 02/26/18] PMH/Surg Hx/FS Hx/Imm Hx Endocrine/Hematology History: Denies: Hx Diabetes Cardiovascular History: Reports: Hx Hypercholesterolemia, Hx Hypertension, Other Cardiovascular Problems/Disorders - VARICOSE VEINS Denies: Hx Pacemaker/ICD Comment Only: Hx Peripheral Vascular Disease - VARICOSE VEINS Respiratory History: Reports: Hx Pneumonia - SEPTIC PNEUMONIA: IN PT ICU 10/06/15 , Hx Pulmonary Embolism - PULMONARY ARTERY BLOOD CLOT, 11/2015 AFTER BOUT WITH PNEUMONIA, Other Respiratory Problems/Disorders - IN PT ICU /PNEUMONIA 10/06/15 Denies: Hx Asthma GI History: Reports: Other GI Disorders - MULTIPLE FOOD ALLERGIES History: Reports: Other Problems/Disorders - ACUTE KIDNEY FAILURE Denies: Hx Renal Disease Musculoskeletal History: Reports: Hx Arthritis, Hx Back Problems, Hx Gout, Other Musculoskeletal History - GOUT Sensory History: Reports: Hx Contacts or Glasses, Hx Glaucoma - BILATERAL Denies: Hx Hearing Aid Opthamlomology History: Reports: Hx Contacts or Glasses, Hx Glaucoma - BILATERAL Neurological History: Reports: Hx Headaches Psychiatric History: Reports: Hx Anxiety - R/T MRI Denies: Hx Panic Disorder - Surgical History Surgery Procedure, Year, and Place: CSECTION X2 1982, 1985. DENTAL IMPLANT 2006 , 12/21, L4-5 sx 2014 Hx Anesthesia Reactions: No Infectious Disease History: No Infectious Disease History: Reports: Hx Shingles - NOT ACTIVE Denies: Traveled Outside the [place] in Last 30 Days - Family History Known Family History: Positive: None - reviewed & noncontributory Negative: Renal Disease, Respiratory Disease, Seizure Disorder, Blood Disorder - Social History Lives: With Family Alcohol Use: None Alcohol Amount: ONCE A YEAR Hx Substance Use: No Substance Use Type: Reports: None Hx Tobacco Use: No Smoking Status (MU): Never Smoked Tobacco Review of Systems Gastrointestinal: Other - bleeding Positive: Other - hemorrhoids and constipation. . Negative: Abdominal Pain Positive: Other - rectal pain Neurological: Negative - light headeness and dizziness All Other Systems Reviewed And Are Negative: Yes Physical Exam - Summary Physical Exam Summary: GENERAL: Patient is a well developed and nourished F who is lying comfortable in the stretcher. Patient is not in any acute respiratory distress. HEAD AND FACE: Normocephalic EYES: PERRLA, EOMI x 2. EARS: Hearing grossly intact. MOUTH: Oropharynx within normal limits. NECK: Supple, trachea is midline, no adenopathy, no JVD, no carotid bruit. CHEST: Symmetric, no tenderness at palpation LUNGS: Clear to auscultation bilaterally. No wheezing or crackles. CVS: Regular rate and rhythm, S1 and S2 present, no murmurs or gallops appreciated. ABDOMEN: Soft, non-tender. Bowel sounds are normal. No abdominal abnormal pulsations. : hemroids without active bleeding EXTREMITIES: Full ROM in all major joints, no edema, no cyanosis or clubbing. NEURO: Alert and oriented x 3. No acute neurological deficits. Speech is normal and follows commands. SKIN: Dry and warm Rectal: External hemorrhoid Triage Information Reviewed: Yes Vital Signs On Initial Exam: Initial Vitals Temp Pulse Resp BP Pulse Ox 97.5 F 97 16 140/74 99 02/26/18 08:28 02/26/18 08:28 02/26/18 08:28 02/26/18 08:28 02/26/18 08:28 Vital Signs Reviewed: Yes Diagnostics - Vital Signs Vital Signs Temp Pulse Resp BP Pulse Ox 02/26/18 08:28 97.5 F 97 16 140/74 99 - Laboratory Lab Results: Lab Results 02/26/18 02/26/18 02/26/18 Range/Units 12:20 12:20 12:20 WBC 5.1 (3.5-10.8) 10^3/ul RBC 2.06 L (4.00-5.40) 10^6/ul Hgb 6.9 L (12.0-16.0) g/dl Hct 21 L (35-47) % MCV 100 H (80-97) fL MCH 34 H (27-31) pg MCHC 34 (31-36) g/dl RDW 16 H (10.5-15) % Plt Count 115 L (150-450) 10^3/ul MPV 9.7 (7.4-10.4) um3 Neut % (Auto) 63.5 (38-83) % Lymph % (Auto) 26.2 (25-47) % [place] % (Auto) 8.5 H (0-7) % Eos % (Auto) 1.4 (0-6) % Baso % (Auto) 0.4 (0-2) % Absolute Neuts (auto) 3.2 (1.5-7.7) 10^3/ul Absolute Lymphs (auto) 1.3 (1.0-4.8) 10^3/ul Absolute Monos (auto) 0.4 (0-0.8) 10^3/ul Absolute Eos (auto) 0.1 (0-0.6) 10^3/ul Absolute Basos (auto) 0 (0-0.2) 10^3/ul Absolute Nucleated RBC 0 10^3/ul Nucleated RBC % 0 INR (Anticoag Therapy) 1.02 (0.77-1.02) APTT 25.0 L (26.0-36.3) seconds Sodium 141 (135-145) mmol/L Potassium 2.9 L (3.5-5.0) mmol/L Chloride 107 (101-111) mmol/L Carbon Dioxide 28 (22-32) mmol/L Anion Gap 6 (2-11) mmol/L BUN 11 (6-24) mg/dL Creatinine 0.73 (0.51-0.95) mg/dL Est GFR ( Amer) 95.1 (>60) Est GFR (Non-Af Amer) 78.6 (>60) BUN/Creatinine Ratio 15.1 (8-20) Glucose 102 H (70-100) mg/dL Calcium 8.6 (8.6-10.3) mg/dL Total Bilirubin 0.30 (0.2-1.0) mg/dL AST 11 L (13-39) U/L ALT 10 (7-52) U/L Alkaline Phosphatase 83 (34-104) U/L Total Protein 4.8 L (6.4-8.9) g/dL Albumin 2.6 L (3.2-5.2) g/dL Globulin 2.2 (2-4) g/dL Albumin/Globulin Ratio 1.2 (1-3) Blood Type Antibody Screen Crossmatch 02/26/18 02/26/18 02/27/18 Range/Units 12:20 21:40 04:28 WBC (3.5-10.8) 10^3/ul RBC (4.00-5.40) 10^6/ul Hgb 7.2 L (12.0-16.0) g/dl Hct 21 L (35-47) % MCV (80-97) fL MCH (27-31) pg MCHC (31-36) g/dl RDW (10.5-15) % Plt Count (150-450) 10^3/ul MPV (7.4-10.4) um3 Neut % (Auto) (38-83) % Lymph % (Auto) (25-47) % [place] % (Auto) (0-7) % Eos % (Auto) (0-6) % Baso % (Auto) (0-2) % Absolute Neuts (auto) (1.5-7.7) 10^3/ul Absolute Lymphs (auto) (1.0-4.8) 10^3/ul Absolute Monos (auto) (0-0.8) 10^3/ul Absolute Eos (auto) (0-0.6) 10^3/ul Absolute Basos (auto) (0-0.2) 10^3/ul Absolute Nucleated RBC 10^3/ul Nucleated RBC % INR (Anticoag Therapy) (0.77-1.02) APTT (26.0-36.3) seconds Sodium 140 (135-145) mmol/L Potassium 4.1 (3.5-5.0) mmol/L Chloride 108 (101-111) mmol/L Carbon Dioxide 27 (22-32) mmol/L Anion Gap 5 (2-11) mmol/L BUN 10 (6-24) mg/dL Creatinine 0.72 (0.51-0.95) mg/dL Est GFR ( Amer) 96.6 (>60) Est GFR (Non-Af Amer) 79.9 (>60) BUN/Creatinine Ratio 13.9 (8-20) Glucose 98 (70-100) mg/dL Calcium 8.8 (8.6-10.3) mg/dL Total Bilirubin (0.2-1.0) mg/dL AST (13-39) U/L ALT (7-52) U/L Alkaline Phosphatase (34-104) U/L Total Protein (6.4-8.9) g/dL Albumin (3.2-5.2) g/dL Globulin (2-4) g/dL Albumin/Globulin Ratio (1-3) Blood Type O Positive Antibody Screen Negative Crossmatch See Detail 02/27/18 Range/Units 04:28 WBC 4.8 (3.5-10.8) 10^3/ul RBC 2.48 L (4.00-5.40) 10^6/ul Hgb 8.2 L (12.0-16.0) g/dl Hct 24 L (35-47) % MCV 97 (80-97) fL MCH 33 H (27-31) pg MCHC 34 (31-36) g/dl RDW 19 H (10.5-15) % Plt Count 128 L (150-450) 10^3/ul MPV 9.5 (7.4-10.4) um3 Neut % (Auto) (38-83) % Lymph % (Auto) (25-47) % [place] % (Auto) (0-7) % Eos % (Auto) (0-6) % Baso % (Auto) (0-2) % Absolute Neuts (auto) (1.5-7.7) 10^3/ul Absolute Lymphs (auto) (1.0-4.8) 10^3/ul Absolute Monos (auto) (0-0.8) 10^3/ul Absolute Eos (auto) (0-0.6) 10^3/ul Absolute Basos (auto) (0-0.2) 10^3/ul Absolute Nucleated RBC 10^3/ul Nucleated RBC % INR (Anticoag Therapy) (0.77-1.02) APTT (26.0-36.3) seconds Sodium (135-145) mmol/L Potassium (3.5-5.0) mmol/L Chloride (101-111) mmol/L Carbon Dioxide (22-32) mmol/L Anion Gap (2-11) mmol/L BUN (6-24) mg/dL Creatinine (0.51-0.95) mg/dL Est GFR ( Amer) (>60) Est GFR (Non-Af Amer) (>60) BUN/Creatinine Ratio (8-20) Glucose (70-100) mg/dL Calcium (8.6-10.3) mg/dL Total Bilirubin (0.2-1.0) mg/dL AST (13-39) U/L ALT (7-52) U/L Alkaline Phosphatase (34-104) U/L Total Protein (6.4-8.9) g/dL Albumin (3.2-5.2) g/dL Globulin (2-4) g/dL Albumin/Globulin Ratio (1-3) Blood Type Antibody Screen Crossmatch Result Diagrams: 02/27/18 14:26 02/27/18 04:28 Lab Statement: Any lab studies that have been ordered have been reviewed, and results considered in the medical decision making process. - EKG 1338 Cardiac Rate: NL EKG Rhythm: Sinus Rhythm - at 64 BPM EKG Interpretation: inverted T waves in the anterior leads, prolonged QTc 511 GIGU Course/Dx - Course Course Of Treatment: 72-year-old female who is present into the emergency room with bright red blood per rectum that started this morning but has since subsided. Laboratory data review and is unremarkable for a hemoglobin of 6.9 which is down compared to 2 weeks ago where it was 13. Patient was ordered to be transfused 2 units of packed red blood cells. I spoke with Dr. Juarez of who said that he'll see patient. Patient was subsequently admitted to the hospitalist team. Patient hemodynamically stable upon admission. - Diagnoses Provider Diagnoses: Anemia, Hypokalemia - Physician Notifications Discussed Care Of Patient With: Stefano Juarez Time Discussed With Above Provider: 13:11 Instructed by Provider To: Other - He has agreed to see the patient in the ED. 13:37 I discussed patient care with Dr. Resendez who has accepted the patient for admission. - Critical Care Time Critical Care Time: 30-74 min Discharge - Sign-Out/Discharge Documenting (check all that apply): Discharge/Admit/Transfer - admitted to [facility] - Discharge Plan Condition: Fair Disposition: ADMITTED TO [facility] - Billing Disposition and Condition Condition: FAIR Disposition: Admitted to [facility] The documentation as recorded by the Thais de santiago Gabriel accurately reflects the service I personally performed and the decisions made by me, Tayler Valentine MD.
[2018-02-27] MEDS: Latanoprost 0.005%* 2.5 ml BTL BOTH EYES SCH (22:51)
[2018-02-28] MEDS: Acetaminophen TAB* 325 MG PO PRN ×2 (03:08→20:26)
[2018-02-28] MEDS: NS 0.9% 1000 ML* 1,000 ML IV SCH ×2 (03:11→17:17)
[2018-02-28 05:39] LABS: ABS Basophils 0 10^3/ul (0-0.2); ABS Eosinophils 0.1 10^3/ul (0-0.6); ABS Lymphocytes 1.1 10^3/ul (1.0-4.8); ABS Monocytes 0.3 10^3/ul (0-0.8); ABS Nucleated RBC 0 10^3/ul; Eosinophil % 2.3 % (0-6); Hematocrit 21 % (35-47); Lymphocyte % 30.9 % (25-47); Mean Corpuscular HGB Conc 34 g/dl (31-36); Mean Corpuscular Hemoglobin 33 pg (27-31); Mean Corpuscular Volume 97 fL (80-97); Mean Platelet Volume 9.5 um3 (7.4-10.4); Nucleated Red Blood Cells % 0.1; Platelet Count 106 10^3/ul (150-450); Red Blood Count 2.11 10^6/ul (4.00-5.40); Red Cell Distribution Width 19 % (10.5-15); White Blood Count 3.5 10^3/ul (3.5-10.8)
[2018-02-28 06:01] LABS: EGFR Non-African American 86.8 (>60)
--- NOTE | 2018-02-28 07:45 | PN ---
Progress Note - Progress Note Date of Service: 02/28/18 SOAP: Subjective: completed bowel prep which was mainly licea until this am when she passed 2-3 large clots of blood. rectal pain improving Objective: Vital Signs Temp Pulse Resp BP Pulse Ox 98.4 F 89 16 164/62 92 02/27/18 19:00 02/28/18 03:19 02/28/18 03:19 02/28/18 03:24 02/28/18 03:19 obese F in nad perr eomi op moist CTA bl s1 s2 II/ NIGEL soft nt +bs trace LE edema port dressing intact with some blistering around edges A+Ox3 nonfocal neurological exam Laboratory Results - last 24 hr 02/26/18 02/27/18 02/28/18 12:20 14:26 05:00 WBC 3.5 RBC 2.11 L Hgb 7.2 L 7.0 L Hct 21 L 21 L MCV 97 MCH 33 H MCHC 34 RDW 19 H Plt Count 106 L MPV 9.5 Neut % (Auto) 58.4 Lymph % (Auto) 30.9 [place] % (Auto) 7.8 H Eos % (Auto) 2.3 Baso % (Auto) 0.6 Absolute Neuts (auto) 2.0 Absolute Lymphs (auto) 1.1 Absolute Monos (auto) 0.3 Absolute Eos (auto) 0.1 Absolute Basos (auto) 0 Absolute Nucleated RBC 0 Nucleated RBC % 0.1 Sodium Potassium Chloride Carbon Dioxide Anion Gap BUN Creatinine Est GFR ( Amer) Est GFR (Non-Af Amer) BUN/Creatinine Ratio Glucose Calcium Crossmatch See Detail 02/28/18 05:00 WBC RBC Hgb Hct MCV MCH MCHC RDW Plt Count MPV Neut % (Auto) Lymph % (Auto) [place] % (Auto) Eos % (Auto) Baso % (Auto) Absolute Neuts (auto) Absolute Lymphs (auto) Absolute Monos (auto) Absolute Eos (auto) Absolute Basos (auto) Absolute Nucleated RBC Nucleated RBC % Sodium 141 Potassium 3.4 L Chloride 109 Carbon Dioxide 27 Anion Gap 5 BUN 5 L Creatinine 0.67 Est GFR ( Amer) 105.0 Est GFR (Non-Af Amer) 86.8 BUN/Creatinine Ratio 7.5 L Glucose 99 Calcium 8.3 L Crossmatch Acetaminophen (Tylenol Tab*) 650 mg PO Q4H PRN PRN Reason: FEVER/PAIN Last Admin: 02/28/18 03:08 Dose: 650 mg Acyclovir (Zovirax Tab*) 400 mg PO BID [facility] Last Admin: 02/27/18 22:51 Dose: Not Given Docusate Sodium (Colace Cap*) 200 mg PO BID [facility] Last Admin: 02/27/18 22:51 Dose: Not Given Fluconazole (Diflucan 100 Mg Tab*) 400 mg PO DAILY [facility] Last Admin: 02/27/18 08:25 Dose: 400 mg Heparin Sodium (Porcine) (Heparin Flush Port (Ivad)) 5 ml FLUSH DAILY [facility]; Protocol Hydrocortisone (Anusol Hc Supp*) 25 mg VT BID [facility] Last Admin: 02/27/18 22:51 Dose: Not Given Sodium Chloride (Ns 0.9% 1000 Ml*) 1,000 mls @ 100 mls/hr IV PER RATE [facility] Last Admin: 02/28/18 03:11 Dose: 100 mls/hr Potassium Chloride (Potassium Chloride 20 Meq/100 Ml Ivpremix*) 20 meq in 100 mls @ 50 mls/hr IV Q2H [facility] Stop: 02/28/18 11:59 Latanoprost (Xalatan 0.005%*) 1 drop BOTH EYES BEDTIME [facility] Last Admin: 02/27/18 22:51 Dose: Not Given Lidocaine (Xylocaine 5% Oint*) 1 applic TOPICAL Q2H PRN PRN Reason: rectal pain Metoprolol Tartrate (Lopressor Tab*) 100 mg PO QPM [facility] Last Admin: 02/27/18 17:31 Dose: 100 mg Metoprolol Tartrate (Lopressor Tab*) 100 mg PO QAM [facility] Ondansetron HCl (Zofran Tab*) 8 mg PO TID PRN PRN Reason: VOMITING Polyethylene Glycol/Electrolytes (Miralax*) 17 gm PO BID [facility] Last Admin: 02/27/18 22:52 Dose: Not Given Prochlorperazine (Compazine Tab*) 5 mg PO QID PRN PRN Reason: VOMITING Senna (Senokot Tab*) 2 tab PO DAILY [facility] Last Admin: 02/27/18 08:25 Dose: 2 tab Tramadol HCl (Ultram*) 50 mg PO BID PRN PRN Reason: PAIN Assessment: 72 yo F w AML sp induction chemotherapy, 2/3 high dose consolidations stopped 2/ 2 intolerance, now on Azacitidine maintenance (with no evidence of relapse) course complicated by symptomatic lower GI bleed. still passing clots this am. Plan: GIB: -flex sig this am with Dr. Juarez -will transfuse another unit PRBC -cont anusol and xylocain supporsitories prn pain AML: RYANN, cytopenias from AZA consolidation and recovering marrow -cont fluconazole, acyclovir prophylaxis -will clarify if should be on bactrim TIW HTN: poorly controlled increase am lopressor to 100 mg hypokalemia: presumably from diarrhea, poor PO intake replete today and check magnesium no DVT prophylaxis given GIB DNR
[2018-02-28] MEDS ORDERED: Magnesium Sulfate 2 GM IV* 2 GM/50 ML BAG IVPB ONE (08:38)
[2018-02-28] MEDS ORDERED: fentaNYL* 50 MCG/ML 2 ML VIAL (100 MCG VIAL) ONE (08:49)
[2018-02-28] MEDS ORDERED: Midazolam* 1 MG/ML 10 ML VIAL (10 MG) ONE (08:49)
[2018-02-28] MEDS: Metoprolol Tartrate TAB* 100 MG TAB PO SCH ×2 (09:01→17:17)
[2018-02-28] MEDS: Acyclovir* 400 MG TAB PO SCH ×2 (11:27→20:27)
[2018-02-28] MEDS: Hydrocortisone SUPP* 25 MG SUPP (2.5%) PR SCH ×2 (11:27→20:32)
[2018-02-28] MEDS: Senna TAB PO SCH (11:27)
[2018-02-28] MEDS: Docusate CAP* 100 MG PO SCH ×2 (11:27→20:32)
[2018-02-28] MEDS: Polyethylene Glycol 3350* 17 GM PACKET PO SCH ×2 (11:27→20:33)
[2018-02-28] MEDS: Fluconazole 100 MG TAB* TAB PO SCH (11:31)
[2018-02-28] MEDS ORDERED: KCL 20 MEQ/100 ML IVPREMIX* 20 MEQ/100 ML BAG ONE ×2 (15:13→15:14)
[2018-02-28] MEDS: KCL 20 MEQ/100 ML IVPREMIX* 20 MEQ/100 ML BAG IV SCH ×2 (15:19→17:17)
--- NOTE | 2018-02-28 19:21 | PRO ---
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 Her hemoglobin has fallen to 4 to 5 g. She has a history of three prior colonoscopies, fall of 2015, 2005, and 1999 with only the 2015 exam showing a small transverse tubular adenoma. Her father had a colon cancer, but survived surgery for several decades. She has a history of constipation. She referenced taking a single enema last week. There is no history of rectal instrumentation. She was given a limited 2 L Colyte prep. ENDOSCOPIST: Dr. Juarez. MEDICATIONS: Midazolam 7, fentanyl 50. FINDINGS: She is a morbidly obese older woman, somewhat pale, in no overt distress. Her abdomen is symmetric, protuberant, with a panniculus. There is no focal tenderness anteriorly. Perianal inspection showed somewhat plaque like broad skin tag on the right and with abstraction of the buttocks, a sense of bluish purple canal hemorrhoids, more predominantly on the left. Digital rectal is remarkable for some scarring and a feeling of stenosis. Initial views show intact rectal mucosa about 6 cm. It was lavaged, it is normal. After lavage, a lot of fecally stained mucous was suctioned clear and at that time extensive ulceration could be seen more anterior and slightly to the right. There were several purplish stigmata spots in the ulcer, which had several interconnected splotches. The ulcer was fairly deep. There was no adherent clot or obvious protruding vessel. The margin was fairly discrete. In retroflexion, there seemed to be a circumferential granular erythema extending up to about 5 or 6 cm. Two biopsies were taken from edematous granular mucosa, separate from the ulcer. Further insertion into the proximal rectum and distal and mid sigmoid showed some diverticula with nonbloody stool in certain of the diverticula and in the lumen. There seemed to be no indication for a complete left colon exam or colonoscopy either. IMPRESSION: Rectal ulcers - Source unclear, though she does have an underlying significant constipation. Her chemo-therapeutic agents will be checked for associations. Addendum: focal acute colitis - no sign of chronicity [id number]/[facility] #: [id number] MTDD
[2018-02-28] MEDS: Latanoprost 0.005%* 2.5 ml BTL BOTH EYES SCH (20:26)
[2018-03-01] MEDS: NS 0.9% 1000 ML* 1,000 ML IV SCH ×2 (04:57→15:22)
[2018-03-01] MEDS: Acetaminophen TAB* 325 MG PO PRN (06:40)
[2018-03-01 07:03] LABS: Hematocrit 25 % (35-47); Hemoglobin 8.5 g/dl (12.0-16.0); Mean Corpuscular HGB Conc 35 g/dl (31-36); Mean Corpuscular Hemoglobin 33 pg (27-31); Mean Corpuscular Volume 94 fL (80-97); Platelet Count 113 10^3/ul (150-450); Red Blood Count 2.61 10^6/ul (4.00-5.40); Red Cell Distribution Width 20 % (10.5-15); White Blood Count 3.5 10^3/ul (3.5-10.8)
[2018-03-01 07:23] LABS: EGFR Non-African American 78.6 (>60)
[2018-03-01 07:25] LABS: ABS Basophils 0 10^3/ul (0-0.2); ABS Eosinophils 0.1 10^3/ul (0-0.6); ABS Lymphocytes 1.1 10^3/ul (1.0-4.8); ABS Monocytes 0.3 10^3/ul (0-0.8); ABS Nucleated RBC 0 10^3/ul; Eosinophil % 2.6 % (0-6); Lymphocyte % 32.7 % (25-47); Nucleated Red Blood Cells % 0.2
[2018-03-01] MEDS: Hydrocortisone SUPP* 25 MG SUPP (2.5%) PR SCH ×2 (09:56→21:04)
[2018-03-01] MEDS: Lidocaine 5% OINT TOPICAL PRN ×5 (09:58→21:04)
[2018-03-01] MEDS: Acyclovir* 400 MG TAB PO SCH ×2 (10:01→21:03)
[2018-03-01] MEDS: Metoprolol Tartrate TAB* 100 MG TAB PO SCH ×2 (10:02→17:32)
[2018-03-01] MEDS: Docusate CAP* 100 MG PO SCH ×2 (10:02→21:04)
[2018-03-01] MEDS: Polyethylene Glycol 3350* 17 GM PACKET PO SCH ×3 (10:02→21:04)
[2018-03-01] MEDS: Senna TAB PO SCH (10:02)
[2018-03-01] MEDS: Fluconazole 100 MG TAB* TAB PO SCH (10:02)
--- NOTE | 2018-03-01 15:10 | PN ---
Subjective Date of Service: 03/01/18 Interval History: . patient in good spirits denies any further bloody stools flex sig showed rectal ulcers H/H encouraging after prbc transfusion yesterday. denies pain at rest -- some pain w/ BM...but not unbearable. expects to go home tomorrow -- is ill and recovering and she wants to make sure there is no further bleeding today. . Family History: Unchanged from Admission Social History: Unchanged from Admission Past Medical History: Unchanged from Admission Objective Active Medications: . Acetaminophen (Tylenol Tab*) 650 mg PO Q4H PRN PRN Reason: FEVER/PAIN Last Admin: 03/01/18 06:40 Dose: 650 mg Acyclovir (Zovirax Tab*) 400 mg PO BID [facility] Last Admin: 03/01/18 10:01 Dose: 400 mg Docusate Sodium (Colace Cap*) 200 mg PO BID [facility] Last Admin: 03/01/18 10:02 Dose: Not Given Fluconazole (Diflucan 100 Mg Tab*) 400 mg PO DAILY [facility] Last Admin: 03/01/18 10:02 Dose: 400 mg Heparin Sodium (Porcine) (Heparin Flush Port (Ivad)) 5 ml FLUSH DAILY [facility]; Protocol Last Admin: 03/01/18 09:52 Dose: Not Given Hydrocortisone (Anusol Hc Supp*) 25 mg MO BID [facility] Last Admin: 03/01/18 09:56 Dose: Not Given Sodium Chloride (Ns 0.9% 1000 Ml*) 1,000 mls @ 100 mls/hr IV PER RATE [facility] Last Admin: 03/01/18 04:57 Dose: 100 mls/hr Latanoprost (Xalatan 0.005%*) 1 drop BOTH EYES BEDTIME [facility] Last Admin: 02/28/18 20:26 Dose: 1 drop Lidocaine (Xylocaine 5% Oint*) 1 applic TOPICAL Q2H PRN PRN Reason: rectal pain Last Admin: 03/01/18 12:10 Dose: 1 applic Metoprolol Tartrate (Lopressor Tab*) 100 mg PO QPM [facility] Last Admin: 02/28/18 17:17 Dose: 100 mg Metoprolol Tartrate (Lopressor Tab*) 100 mg PO QAM [facility] Last Admin: 03/01/18 10:02 Dose: 100 mg Ondansetron HCl (Zofran Tab*) 8 mg PO TID PRN PRN Reason: VOMITING Polyethylene Glycol/Electrolytes (Miralax*) 17 gm PO BID [facility] Last Admin: 03/01/18 10:02 Dose: Not Given Prochlorperazine (Compazine Tab*) 5 mg PO QID PRN PRN Reason: VOMITING Senna (Senokot Tab*) 2 tab PO DAILY [facility] Last Admin: 03/01/18 10:02 Dose: Not Given Tramadol HCl (Ultram*) 50 mg PO BID PRN PRN Reason: PAIN . Vital Signs - 8 hr 03/01/18 03/01/18 03/01/18 08:00 08:12 08:22 Temperature 97.9 F Pulse Rate 83 Respiratory 18 16 Rate Blood Pressure 140/85 (mmHg) O2 Sat by Pulse 92 Oximetry 03/01/18 03/01/18 03/01/18 08:30 08:39 12:33 Temperature Pulse Rate 83 78 Respiratory Rate Blood Pressure 140/85 (mmHg) O2 Sat by Pulse 92 96 Oximetry Oxygen Devices in Use Now: None Appearance: NAD; elderly and frail. Eyes: No Scleral Icterus Ears/Nose/Mouth/Throat: Clear Oropharnyx Neck: Trachea Midline Respiratory: Symmetrical Chest Expansion and Respiratory Effort Cardiovascular: NL Sounds; No Murmurs; No JVD Abdominal: - - diffuse tenderness - not exquisite Extremities: No Edema Skin: No Rash or Ulcers, - - + port Neurological: Alert and Oriented x 3, - - pleasant and conversational Lines/Tubes/Other Access: Clean, Dry and Intact Peripheral IV, Clean, Dry and Intact Other Access - port Nutrition: Taking PO's Result Diagrams: 03/01/18 06:00 03/01/18 06:00 Additional Lab and Data: . Assess/Plan/Problems-Billing . Assessment: 72 yo F w AML s/p induction chemotherapy, 2/3 high dose consolidations stopped for intolerance, now on maintenance chemo (no evidence of relapse) now with lower GIB; flex sig showed rectal ulcers (not actively bleeding). s/p 2 units prbc - Hgb stable > 8. Rectal Ulcers and associated rectal bleeding with Symptomatic Blood Loss Anemia: -continue xylocaine & anusol MO prn pain Acute Myelogenous leukemia (AML) -cont fluconazole, acyclovir prophylaxis -onc team considering adding bactrim...to be decided. Hypertension - increase am lopressor to 100 mg - BP acceptable at 140/85 given all factors. Hypokalemia and other electrolyte derangements: presumably from diarrhea, poor PO intake K 3.6 ; give extra 40 PO. Mg 2.0 ; good DVT prophylaxis contraindicated given rectal bleeding DNR status verified. .
[2018-03-01] MEDS: Latanoprost 0.005%* 2.5 ml BTL BOTH EYES SCH (21:03)
[2018-03-02] MEDS: NS 0.9% 1000 ML* 1,000 ML IV SCH ×2 (01:24→17:19)
[2018-03-02] MEDS: Lidocaine 5% OINT TOPICAL PRN (08:05)
[2018-03-02] MEDS: Polyethylene Glycol 3350* 17 GM PACKET PO SCH ×2 (08:14→20:44)
[2018-03-02] MEDS: Docusate CAP* 100 MG PO SCH ×2 (09:39→20:47)
[2018-03-02] MEDS: Hydrocortisone SUPP* 25 MG SUPP (2.5%) PR SCH ×2 (09:39→20:47)
[2018-03-02] MEDS: Fluconazole 100 MG TAB* TAB PO SCH ×2 (09:42→12:09)
[2018-03-02] MEDS: Senna TAB PO SCH (09:42)
[2018-03-02] MEDS: Metoprolol Tartrate TAB* 100 MG TAB PO SCH ×3 (09:42→17:20)
[2018-03-02] MEDS: Acyclovir* 400 MG TAB PO SCH ×3 (09:42→20:44)
[2018-03-02 09:45] LABS: ABS Basophils 0 10^3/ul (0-0.2); ABS Eosinophils 0.1 10^3/ul (0-0.6); ABS Lymphocytes 1.1 10^3/ul (1.0-4.8); ABS Monocytes 0.4 10^3/ul (0-0.8); ABS Neutrophils 2.2 10^3/ul (1.5-7.7); ABS Nucleated RBC 0 10^3/ul; Eosinophil % 1.3 % (0-6); Hematocrit 22 % (35-47); Hemoglobin 7.5 g/dl (12.0-16.0); Lymphocyte % 29.8 % (25-47); Mean Corpuscular HGB Conc 34 g/dl (31-36); Mean Corpuscular Hemoglobin 33 pg (27-31); Mean Corpuscular Volume 96 fL (80-97); Mean Platelet Volume 8.9 um3 (7.4-10.4); Nucleated Red Blood Cells % 0.1; Platelet Count 110 10^3/ul (150-450); Red Cell Distribution Width 20 % (10.5-15); White Blood Count 3.8 10^3/ul (3.5-10.8)
[2018-03-02] MEDS: Acetaminophen TAB* 325 MG PO PRN ×2 (12:19→22:23)
[2018-03-02 17:27] LABS: Hematocrit 25 % (35-47); Hemoglobin 8.7 g/dl (12.0-16.0)
[2018-03-02] MEDS: Latanoprost 0.005%* 2.5 ml BTL BOTH EYES SCH (20:45)
[2018-03-03] MEDS: NS 0.9% 1000 ML* 1,000 ML IV SCH ×2 (03:13→18:16)
[2018-03-03 08:20] LABS: Hematocrit 25 % (35-47); Hemoglobin 8.7 g/dl (12.0-16.0); Mean Corpuscular HGB Conc 35 g/dl (31-36); Mean Corpuscular Hemoglobin 33 pg (27-31); Mean Corpuscular Volume 94 fL (80-97); Red Blood Count 2.66 10^6/ul (4.00-5.40); Red Cell Distribution Width 18 % (10.5-15); White Blood Count 3.8 10^3/ul (3.5-10.8)
[2018-03-03] MEDS: Acetaminophen TAB* 325 MG PO PRN ×3 (08:25→23:19)
[2018-03-03] MEDS: Lidocaine 5% OINT TOPICAL PRN (08:25)
[2018-03-03] MEDS ORDERED: Alteplase (CATHFLO)* 2 MG VIAL IV ONE (08:58)
[2018-03-03 09:24] LABS: ABS Basophils 0 10^3/ul (0-0.2); ABS Eosinophils 0 10^3/ul (0-0.6); ABS Lymphocytes 1.2 10^3/ul (1.0-4.8); ABS Monocytes 0.4 10^3/ul (0-0.8); ABS Neutrophils 2.2 10^3/ul (1.5-7.7); ABS Nucleated RBC 0 10^3/ul; Eosinophil % 1.1 % (0-6); Lymphocyte % 31.1 % (25-47); Mean Platelet Volume 9.7 um3 (7.4-10.4); Nucleated Red Blood Cells % 0.3; Platelet Count 94 10^3/ul (150-450)
[2018-03-03] MEDS: Polyethylene Glycol 3350* 17 GM PACKET PO SCH ×2 (09:24→20:39)
[2018-03-03] MEDS: Fluconazole 100 MG TAB* TAB PO SCH (09:25)
[2018-03-03] MEDS: Metoprolol Tartrate TAB* 100 MG TAB PO SCH ×2 (09:25→18:16)
[2018-03-03] MEDS: Docusate CAP* 100 MG PO SCH ×2 (09:25→20:38)
[2018-03-03] MEDS: Senna TAB PO SCH (09:25)
[2018-03-03] MEDS: Hydrocortisone SUPP* 25 MG SUPP (2.5%) PR SCH ×3 (09:26→21:17)
[2018-03-03] MEDS: Acyclovir* 400 MG TAB PO SCH ×2 (09:26→20:38)
--- NOTE | 2018-03-03 10:40 | PN ---
Progress Note - Progress Note Date of Service: 03/03/18 SOAP: Subjective: [No additional bleeding yesterday or this am. No additional stool either. No abd pain. Appetite ok. No n/v. Received 2U PRBCs yesterday, Hgb stable on repeat today. Pathology from ulceration returned as likely inflammatory bowel.] Objective: [ Acetaminophen (Tylenol Tab*) 650 mg PO Q4H PRN PRN Reason: FEVER/PAIN Last Admin: 03/03/18 08:25 Dose: 650 mg Acyclovir (Zovirax Tab*) 400 mg PO BID [facility] Last Admin: 03/03/18 09:26 Dose: 400 mg Docusate Sodium (Colace Cap*) 200 mg PO BID [facility] Last Admin: 03/03/18 09:25 Dose: 200 mg Fluconazole (Diflucan 100 Mg Tab*) 400 mg PO DAILY [facility] Last Admin: 03/03/18 09:25 Dose: 400 mg Heparin Sodium (Porcine) (Heparin Flush Port (Ivad)) 5 ml FLUSH DAILY [facility]; Protocol Last Admin: 03/03/18 09:42 Dose: 5 ml Hydrocortisone (Anusol Hc Supp*) 25 mg IN BID [facility] Last Admin: 03/03/18 09:26 Dose: 25 mg Sodium Chloride (Ns 0.9% 1000 Ml*) 1,000 mls @ 100 mls/hr IV PER RATE [facility] Last Admin: 03/03/18 03:13 Dose: 100 mls/hr Latanoprost (Xalatan 0.005%*) 1 drop BOTH EYES BEDTIME [facility] Last Admin: 03/02/18 20:45 Dose: 1 drop Lidocaine (Xylocaine 5% Oint*) 1 applic TOPICAL Q2H PRN PRN Reason: rectal pain Last Admin: 03/03/18 08:25 Dose: 1 applic Metoprolol Tartrate (Lopressor Tab*) 100 mg PO QPM [facility] Last Admin: 03/02/18 17:20 Dose: 100 mg Metoprolol Tartrate (Lopressor Tab*) 100 mg PO QAM [facility] Last Admin: 03/03/18 09:25 Dose: 100 mg Ondansetron HCl (Zofran Tab*) 8 mg PO TID PRN PRN Reason: VOMITING Polyethylene Glycol/Electrolytes (Miralax*) 17 gm PO BID [facility] Last Admin: 03/03/18 09:24 Dose: 17 gm Prochlorperazine (Compazine Tab*) 5 mg PO QID PRN PRN Reason: VOMITING Senna (Senokot Tab*) 2 tab PO DAILY [facility] Last Admin: 03/03/18 09:25 Dose: 2 tab Tramadol HCl (Ultram*) 50 mg PO BID PRN PRN Reason: PAIN Laboratory Results - last 24 hr 03/02/18 03/02/18 03/03/18 09:37 17:19 07:59 WBC 3.8 RBC 2.66 L Hgb 8.7 L 8.7 L Hct 25 L 25 L MCV 94 MCH 33 H MCHC 35 RDW 18 H Plt Count 94 L MPV 9.7 Neut % (Auto) 57.1 Lymph % (Auto) 31.1 Pender % (Auto) 9.8 H Eos % (Auto) 1.1 Baso % (Auto) 0.9 Absolute Neuts (auto) 2.2 Absolute Lymphs (auto) 1.2 Absolute Monos (auto) 0.4 Absolute Eos (auto) 0 Absolute Basos (auto) 0 Absolute Nucleated RBC 0 Nucleated RBC % 0.3 Blood Type O Positive Antibody Screen Negative Crossmatch See Detail Vital Signs: Temp Pulse Resp BP Pulse Ox 98.5 F 87 16 150/86 98 03/03/18 08:33 03/03/18 08:33 03/03/18 08:33 03/03/18 08:33 03/03/18 08:33 Exam: Gen: 72 yo female in NAD HEENT: MMM CV: RRR, no m/r/g Resp: lungs CTA, no w/c/r Abd: soft, nontender, nondistended, normoactive BS present Ext: trace edema] Assessment: [72 yo female with AML, currently on consolidation therapy with azacitadine who presents with lower GI bleed with rather significant blood loss. Now s/p flex sig with deep rectal ulcerations appreciated, pathology reveals it is likely inflammatory bowel.] Plan: [1. GI bleed - rectal ulcerations likely due to inflammatory bowel disease - appreciate GI consult - will look to GI for recommendations on initial therapy - she has been refusing the hydrocortisone suppositories, but did receive one this am - cont regular diet - cont to monitor H&H - cont lidocaine jelly for comfort 2. AML - currently on consolidation therapy with azacitadine - unlikely to be related to inflammatory bowel - associated cytopenias - cont fluconazole/acyclovir prophylaxis Dispo: start IBD therapy per GI and if no additional bleeding, possible dc home tomorrow
[2018-03-03] MEDS: Latanoprost 0.005%* 2.5 ml BTL BOTH EYES SCH (20:39)
[2018-03-04] MEDS: Lidocaine 5% OINT TOPICAL PRN (03:45)
[2018-03-04] MEDS: NS 0.9% 1000 ML* 1,000 ML IV SCH (03:49)
[2018-03-04 04:25] LABS: ABS Basophils 0 10^3/ul (0-0.2); ABS Eosinophils 0 10^3/ul (0-0.6); ABS Lymphocytes 1.2 10^3/ul (1.0-4.8); ABS Monocytes 0.3 10^3/ul (0-0.8); ABS Neutrophils 1.5 10^3/ul (1.5-7.7); ABS Nucleated RBC 0 10^3/ul; Eosinophil % 1.5 % (0-6); Hematocrit 22 % (35-47); Hemoglobin 7.7 g/dl (12.0-16.0); Lymphocyte % 40.1 % (25-47); Mean Corpuscular HGB Conc 35 g/dl (31-36); Mean Corpuscular Hemoglobin 33 pg (27-31); Mean Corpuscular Volume 95 fL (80-97); Mean Platelet Volume 9.9 um3 (7.4-10.4); Nucleated Red Blood Cells % 0.3; Platelet Count 90 10^3/ul (150-450); Red Blood Count 2.32 10^6/ul (4.00-5.40); Red Cell Distribution Width 19 % (10.5-15); White Blood Count 3.1 10^3/ul (3.5-10.8)
[2018-03-04] MEDS: Acetaminophen TAB* 325 MG PO PRN (08:25)
[2018-03-04] MEDS: Acyclovir* 400 MG TAB PO SCH (08:26)
[2018-03-04] MEDS: Docusate CAP* 100 MG PO SCH (08:26)
[2018-03-04] MEDS: Fluconazole 100 MG TAB* TAB PO SCH (08:26)
[2018-03-04] MEDS: Metoprolol Tartrate TAB* 100 MG TAB PO SCH (08:27)
[2018-03-04] MEDS: Polyethylene Glycol 3350* 17 GM PACKET PO SCH (08:35)
[2018-03-04] MEDS: Senna TAB PO SCH (08:35)
[2018-03-04] MEDS: Hydrocortisone SUPP* 25 MG SUPP (2.5%) PR SCH (10:27)
[2018-03-04 13:30] VITALS: BP 152/70
--- NOTE | 2018-03-05 01:26 | DS ---
CC: Dr. Stefano Juarez; Dr. Baca * DISCHARGE SUMMARY: DATE OF ADMISSION: 02/26/18 DATE OF DISCHARGE: 03/04/18 PRIMARY CARE PROVIDER: Dr. Saira Little. PRIMARY ONCOLOGIST: Dr. Priyanka Baca. CONSULTING DITCHING MACHINE OPERATOR: Dr. Stefano Juarez. ATTENDING PHYSICIAN: Dr. Nicko Márquez.* (DICTATED BY MERVAT SYKES) DISCHARGING PROVIDER: MERVAT Sykes PRIMARY DISCHARGE DIAGNOSIS: Lower GI bleed secondary to rectal ulceration. SECONDARY DISCHARGE DIAGNOSIS: Acute myeloid leukemia, on consolidation therapy with azacitidine. DISCHARGE MEDICATIONS: 1. Acyclovir 400 mg p.o. twice daily. 2. Vitamin D 5000 units p.o. twice weekly. 3. Vitamin B12 1000 mcg p.o. twice weekly. 4. Docusate 200 mg p.o. twice daily. 5. Fluconazole 400 mg p.o. daily. 6. Loratadine 10 mg p.o. daily. 7. Citrucel 1000 mg p.o. daily. 8. Metoprolol tartrate 50 mg p.o. in the morning and 100 mg in the evening. 9. Zofran 8 mg p.o. t.i.d. as needed for nausea. 10. Compazine 5 mg p.o. 4 times daily as needed for nausea. 11. Tramadol 50 mg p.o. twice daily as needed for pain. 12. Coenzyme Q10, 10 mg p.o. daily. 13. Canasa suppository 1000 mg per rectum at bedtime. 14. MiraLAX 17 g p.o. daily. 15. Senna 2 tablets p.o. daily as needed for constipation. MEDICATION CHANGES: Start Canasa. HOSPITAL IMAGING: Flex sigmoidoscopy with Dr. Juarez demonstrated rectal ulceration with pathology demonstrating focal colitis with surface erosion. HOSPITAL COURSE: This is a 72-year-old female with AML treated by Dr. Baca and is currently on consolidation therapy with azacitidine, who is admitted to the hospital with large volume of bright red blood per rectum. The patient had called the on-call oncology service the week prior with a large volume of blood loss and was referred to the emergency department. At that time, an ambulance was called and she was diverted to [place] due to lack of GI coverage. At [place] , the patient underwent a CT scan, which was negative for obvious pathology. She received transfusion of 1 unit of packed red blood cells and notably her hemoglobin had dropped from 13 about 10 days prior down to approximately 7 g/dL. She had had some associated rectal pain and swelling and the source of bleeding was presumed to be hemorrhoidal and the patient was subsequently discharged home. Within 12 hours of returning home, the patient began to have large volume of blood loss again and came to emergency department here at [facility]. She received additional blood transfusion with initial hemoglobin of 6.9 g/dL. The patient was evaluated by battery test engineer, Dr. Stefano Juarez, who performed flex sigmoidoscopy, which demonstrated relatively deep rectal ulcerations without an obvious vessel present or other source of bleeding. Pathology identified this as a focal colitis. The patient has no personal history of inflammatory bowel diseases or family history. No seeming association between her azacitidine and development of an inflammatory bowel pattern. Alternate differential diagnosis was ulceration secondary to constipation, but there did not appear to be any associated tissue necrosis identified on pathology. Dr. Juarez recommended starting Canasa suppositories and avoiding constipation with MiraLAX once daily. The patient had intermittent bleeding throughout her hospitalization, received a total of 5 units of packed red blood cells. For the 24 hours prior to discharge, she had had 5 loose brown stools without evidence of additional bleeding. DISPOSITION AND FOLLOWUP PLAN: The patient is being discharged to home. The patient will be seen in the oncology office next week for followup and asked her to please call with any additional bleeding events. The patient has been prescribed Canasa per Dr. Juarez's recommendation and should follow up with Dr. Juarez in 3 to 4 weeks. May require a repeat flex sigmoidoscopy to ensure appropriate healing of observed rectal ulceration. We will plan to continue treatment with azacitidine at this time. MERVAT SYKES [id number]/[facility] #: [id number] [facility]
== END 2018-03-04 17:04 | disposition home health service (06) | DRG 378 ==
LOC: ED 08:19 → MEDTELE 14:54 → MED 02-27 07:40 → OBSVTOIN 02-27 10:45
PROVIDERS: ADMIT Hospitalist; ATTEND Internal Medicine Hematology & Oncology
PROC: 30233N1 Transfusion of Nonautologous Red Blood Cells into Peripheral Vein, Percutaneous Approach (ICD-10-PCS; principal; 2018-02-27)
PROC: 0DBP8ZX Excision of Rectum, Via Natural or Artificial Opening Endoscopic, Diagnostic (ICD-10-PCS; 2018-02-28)
DX: K62.5 Hemorrhage of anus and rectum (principal); K62.6 Ulcer of anus and rectum; C92.00 Acute myeloblastic leukemia, not having achieved remission; I10 Essential (primary) hypertension; E78.5 Hyperlipidemia, unspecified; M10.9 Gout, unspecified; K59.03 Drug induced constipation; Z66 Do not resuscitate; I83.90 Asymptomatic varicose veins of unspecified lower extremity; M19.90 Unspecified osteoarthritis, unspecified site; H40.9 Unspecified glaucoma; F41.9 Anxiety disorder, unspecified; E87.6 Hypokalemia; T45.1X5A Adverse effect of antineoplastic and immunosuppressive drugs, initial encounter; D64.9 Anemia, unspecified; K57.30 Diverticulosis of large intestine without perforation or abscess without bleeding; E66.01 Morbid (severe) obesity due to excess calories; E65 Localized adiposity; K64.9 Unspecified hemorrhoids; K52.89 Other specified noninfective gastroenteritis and colitis; J30.9 Allergic rhinitis, unspecified; Z88.1 Allergy status to other antibiotic agents; Z88.8 Allergy status to other drugs, medicaments and biological substances; Z88.5 Allergy status to narcotic agent; Z91.011 Allergy to milk products; Z91.018 Allergy to other foods; Z82.49 Family history of ischemic heart disease and other diseases of the circulatory system; Z80.0 Family history of malignant neoplasm of digestive organs; Z86.711 Personal history of pulmonary embolism; Z87.01 Personal history of pneumonia (recurrent); Z68.32 Body mass index [BMI] 32.0-32.9, adult; Y92.9 Unspecified place or not applicable; Z86.718 Personal history of other venous thrombosis and embolism
CPT/HCPCS: 36415; 80048; 80053; 83735; 85014; 85018; 85025; 85027; 85610; 85730; 86850; 86900; 86901; 86922; 87496; 88305; 93005; 99156; 99157; 99232; 99233; 99285; A9270-GY; G0378; J1642; J2250; J2997; J3010; J3475; J3480; P9040

== ENCOUNTER 2018-03-07 11:22 | Emergency (ER) | payer MEDICARE, BC ==
[2018-03-07] MEDS ORDERED: NS 0.9% 1000 ML* 2,000 ML IV ONE (11:27)
[2018-03-07 11:55] LABS: ABS Basophils 0 10^3/ul (0-0.2); ABS Eosinophils 0 10^3/ul (0-0.6); ABS Lymphocytes 1.8 10^3/ul (1.0-4.8); ABS Monocytes 0.6 10^3/ul (0-0.8); ABS Nucleated RBC 0 10^3/ul; Eosinophil % 0.9 % (0-6); Hematocrit 25 % (35-47); Hemoglobin 8.2 g/dl (12.0-16.0); Lymphocyte % 32.6 % (25-47); Mean Corpuscular HGB Conc 33 g/dl (31-36); Mean Corpuscular Hemoglobin 32 pg (27-31); Mean Corpuscular Volume 98 fL (80-97); Mean Platelet Volume 9.5 um3 (7.4-10.4); Nucleated Red Blood Cells % 0.1; Platelet Count 111 10^3/ul (150-450); Red Blood Count 2.54 10^6/ul (4.00-5.40); Red Cell Distribution Width 19 % (10.5-15); White Blood Count 5.4 10^3/ul (3.5-10.8)
[2018-03-07 12:12] LABS: EGFR Non-African American 55.9 (>60)
[2018-03-07 12:20] LABS: INR 0.96 (0.77-1.02)
--- NOTE | 2018-03-07 13:34 | ED ---
Dimitry Osborn Natalie, scribed for Oscar Livingston MD on 03/07/18 at 1140 . GI/ HPI - HPI Summary HPI Summary: The patient is a 72 y/o F presenting to [facility] c/o GI bleed with bright red blood that started this morning at 08:30. She was released from the hospital on 03/04/18 after being admitted for the same symptoms. On 03/05/18, she visited Dr. Baca to get her blood tested, and she was not bleeding then. She did not bleed last night, but she woke up this morning with three episodes of bleeding from the rectum. She spoke with Dr. Conway, who told her to get lab work done, but she came to the ED instead. She states that the bleeding starts, stops for two days, and then returns. There is no pain associated with the bleeding, but she reports pressure in the rectum. She additionally c/o generalized weakness and diaphoresis. She denies abd pain. She does not use blood thinners. The pt has hx of acute leukemia. 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: Mild Current Severity: Moderate Location of Pain: Anal Pain Characteristics: Pressure Associated Signs and Symptoms: Positive: Weakness - generalized, Diaphoresis, Other: - rectal bleeding - Additional Pertinent History Primary Care Physician: [id number] - Allergy/Home Medications Allergies/Adverse Reactions: Allergies Allergy/AdvReac Type Severity Reaction Status Date / Time honey Allergy Severe Nausea And Verified 03/07/18 11:33 Vomiting pregabalin Allergy Severe See Comment Verified 03/07/18 11:33 cefuroxime Allergy Hives Verified 03/07/18 11:33 erythromycin base Allergy Vomiting Verified 03/07/18 11:33 levofloxacin Allergy Hives Verified 03/07/18 11:33 nicole Allergy Swelling Verified 03/07/18 11:33 Of Face,Lips,& Throat milk Allergy See Comment Verified 03/07/18 11:33 Milk Containing Products Allergy See Comment Verified 03/07/18 11:33 morphine Allergy Vomiting Verified 03/07/18 11:33 onion Allergy Stomach Verified 03/07/18 11:33 Cramps pepper (genus Capsicum) Allergy Stomach Verified 03/07/18 11:33 Cramps raspberry Allergy Swelling Verified 03/07/18 11:33 Of Face,Lips,& Throat Environmental Allergy Congestion Uncoded 03/07/18 11:33 HAWIAAN PUNCH Allergy Diarrhea Uncoded 03/07/18 11:33 ONIONS/PEPPERS (not Allergy Stomach Uncoded 03/07/18 11:33 cooked/meat) Pains, Diarrhea PMH/Surg Hx/FS Hx/Imm Hx Endocrine/Hematology History: Reports: Hx Bone Marrow Disease, Hx Anemia Denies: Hx Diabetes Cardiovascular History: Reports: Hx Deep Vein Thrombosis, Hx Embolism, Hx Hypercholesterolemia, Hx Hypertension, Other Cardiovascular Problems/Disorders - VARICOSE VEINS Denies: Hx Pacemaker/ICD Comment Only: Hx Peripheral Vascular Disease - VARICOSE VEINS Respiratory History: Reports: Hx Pneumonia - SEPTIC PNEUMONIA: IN PT ICU 10/06/15 , Hx Pulmonary Embolism - PULMONARY ARTERY BLOOD CLOT, 11/2015 AFTER BOUT WITH PNEUMONIA, Other Respiratory Problems/Disorders - IN PT ICU /PNEUMONIA 10/06/15 Denies: Hx Asthma, Hx Chronic Obstructive Pulmonary Disease (COPD) GI History: Reports: Hx Gastrointestinal Bleed, Other GI Disorders - MULTIPLE FOOD ALLERGIES History: Reports: Other Problems/Disorders - ACUTE KIDNEY FAILURE Denies: Hx Renal Disease Musculoskeletal History: Reports: Hx Arthritis, Hx Back Problems, Hx Gout, Other Musculoskeletal History - GOUT Sensory History: Reports: Hx Contacts or Glasses, Hx Glaucoma - BILATERAL Denies: Hx Hearing Aid Opthamlomology History: Reports: Hx Contacts or Glasses, Hx Glaucoma - BILATERAL Neurological History: Reports: Hx Headaches Denies: Hx Seizures, Hx Spinal Cord Injury, Hx Transient Ischemic Attacks ( TIA) Psychiatric History: Reports: Hx Anxiety - R/T MRI Denies: Hx Panic Disorder - Cancer History Cancer Type, Location and Year: leukemia - Surgical History Surgery Procedure, Year, and Place: CSECTION X2 1982, 1985. DENTAL IMPLANT 2006 , 12/21, L4-5 sx 2014 Hx Anesthesia Reactions: No Infectious Disease History: Reports: Hx Shingles - NOT ACTIVE - Family History Known Family History: Negative: Renal Disease, Respiratory Disease, Seizure Disorder, Blood Disorder - Social History Alcohol Use: None Alcohol Amount: ONCE A YEAR Hx Substance Use: No Substance Use Type: Reports: None Hx Tobacco Use: No Smoking Status (MU): Never Smoked Tobacco Review of Systems Positive: Skin Diaphoresis Positive: Other - bleeding from rectum. Negative: Abdominal Pain Positive: Weakness - generalized All Other Systems Reviewed And Are Negative: Yes Physical Exam - Summary Physical Exam Summary: Appearance: The patient is well-nourished in mild acute distress and in no acute pain. Skin: The skin is warm and dry and skin is pale in color. HEENT: The head is normocephalic and atraumatic. The pupils are equal and reactive. The conjunctivae are pale and without drainage. Nares are patent and without drainage. Mouth reveals moist mucous membranes and the throat is without erythema and exudate. The external ears are intact. The ear canals are patent and without drainage. The tympanic membranes are intact. Neck: The neck is supple with full range of motion and non-tender. There are no carotid bruits. There is no neck vein distension. Respiratory: Chest is non-tender. Lungs are clear to auscultation and breath sounds are symmetrical and equal. Cardiovascular: Heart is tachycardic rate and rhythm. There is no murmur or rub auscultated. There is no peripheral edema and pulses are symmetrical and equal. Abdomen: The abdomen is soft and non-tender. There are normal bowel sounds heard in all four quadrants and there is no organomegaly palpated. There is bright red blood per rectum. Musculoskeletal: There is no back tenderness noted. Extremities are non-tender with full range of motion. There is good capillary refill with some eccymosis in the left forearm. There is no peripheral edema or calf tenderness elicited. Neurological: Patient is alert and oriented to person, place and time. The patient has symmetrical motor strength in all four extremities. Cranial nerves are grossly intact. Deep tendon reflexes are symmetrical and equal in all four extremities. Psychiatric: The patient has an appropriate affect and does not exhibit any anxiety or depression. Triage Information Reviewed: Yes Vital Signs On Initial Exam: Initial Vitals Temp Pulse Resp BP Pulse Ox 97.5 F 134 24 110/80 98 03/07/18 11:23 03/07/18 11:23 03/07/18 11:23 03/07/18 11:23 03/07/18 11:23 Vital Signs Reviewed: Yes Diagnostics - Vital Signs Vital Signs Temp Pulse Resp BP Pulse Ox 03/07/18 13:03 99 29 128/79 95 03/07/18 13:01 99 30 97 03/07/18 13:00 98 19 136/81 96 03/07/18 12:33 99 32 157/82 96 03/07/18 12:03 110 30 139/70 94 03/07/18 12:00 110 33 98 03/07/18 11:33 123 26 115/80 98 03/07/18 11:28 130 29 97 03/07/18 11:23 97.5 F 134 24 110/80 98 - Laboratory Lab Results: Lab Results 03/07/18 03/07/18 03/07/18 Range/Units 11:42 11:42 11:42 WBC 5.4 (3.5-10.8) 10^3/ul RBC 2.54 L (4.00-5.40) 10^6/ul Hgb 8.2 L (12.0-16.0) g/dl Hct 25 L (35-47) % MCV 98 H (80-97) fL MCH 32 H (27-31) pg MCHC 33 (31-36) g/dl RDW 19 H (10.5-15) % Plt Count 111 L (150-450) 10^3/ul MPV 9.5 (7.4-10.4) um3 Neut % (Auto) 54.7 (38-83) % Lymph % (Auto) 32.6 (25-47) % [place]andt % (Auto) 11.0 H (0-7) % Eos % (Auto) 0.9 (0-6) % Baso % (Auto) 0.8 (0-2) % Absolute Neuts (auto) 3.0 (1.5-7.7) 10^3/ul Absolute Lymphs (auto) 1.8 (1.0-4.8) 10^3/ul Absolute Monos (auto) 0.6 (0-0.8) 10^3/ul Absolute Eos (auto) 0 (0-0.6) 10^3/ul Absolute Basos (auto) 0 (0-0.2) 10^3/ul Absolute Nucleated RBC 0 10^3/ul Nucleated RBC % 0.1 INR (Anticoag Therapy) 0.96 (0.77-1.02) APTT 26.2 (26.0-36.3) seconds Sodium 142 (135-145) mmol/L Potassium 3.3 L (3.5-5.0) mmol/L Chloride 111 (101-111) mmol/L Carbon Dioxide 23 (22-32) mmol/L Anion Gap 8 (2-11) mmol/L BUN 14 (6-24) mg/dL Creatinine 0.98 H (0.51-0.95) mg/dL Est GFR ( Amer) 67.7 (>60) Est GFR (Non-Af Amer) 55.9 (>60) BUN/Creatinine Ratio 14.3 (8-20) Glucose 125 H (70-100) mg/dL Calcium 8.2 L (8.6-10.3) mg/dL Total Bilirubin 0.40 (0.2-1.0) mg/dL AST 12 L (13-39) U/L ALT 9 (7-52) U/L Alkaline Phosphatase 72 (34-104) U/L Total Protein 4.5 L (6.4-8.9) g/dL Albumin 2.5 L (3.2-5.2) g/dL Globulin 2.0 (2-4) g/dL Albumin/Globulin Ratio 1.3 (1-3) Blood Type Antibody Screen Crossmatch 03/07/18 Range/Units 11:42 WBC (3.5-10.8) 10^3/ul RBC (4.00-5.40) 10^6/ul Hgb (12.0-16.0) g/dl Hct (35-47) % MCV (80-97) fL MCH (27-31) pg MCHC (31-36) g/dl RDW (10.5-15) % Plt Count (150-450) 10^3/ul MPV (7.4-10.4) um3 Neut % (Auto) (38-83) % Lymph % (Auto) (25-47) % [place] % (Auto) (0-7) % Eos % (Auto) (0-6) % Baso % (Auto) (0-2) % Absolute Neuts (auto) (1.5-7.7) 10^3/ul Absolute Lymphs (auto) (1.0-4.8) 10^3/ul Absolute Monos (auto) (0-0.8) 10^3/ul Absolute Eos (auto) (0-0.6) 10^3/ul Absolute Basos (auto) (0-0.2) 10^3/ul Absolute Nucleated RBC 10^3/ul Nucleated RBC % INR (Anticoag Therapy) (0.77-1.02) APTT (26.0-36.3) seconds Sodium (135-145) mmol/L Potassium (3.5-5.0) mmol/L Chloride (101-111) mmol/L Carbon Dioxide (22-32) mmol/L Anion Gap (2-11) mmol/L BUN (6-24) mg/dL Creatinine (0.51-0.95) mg/dL Est GFR ( Amer) (>60) Est GFR (Non-Af Amer) (>60) BUN/Creatinine Ratio (8-20) Glucose (70-100) mg/dL Calcium (8.6-10.3) mg/dL Total Bilirubin (0.2-1.0) mg/dL AST (13-39) U/L ALT (7-52) U/L Alkaline Phosphatase (34-104) U/L Total Protein (6.4-8.9) g/dL Albumin (3.2-5.2) g/dL Globulin (2-4) g/dL Albumin/Globulin Ratio (1-3) Blood Type O Positive Antibody Screen Negative Crossmatch See Detail Result Diagrams: 03/07/18 11:42 03/07/18 11:42 Lab Statement: Any lab studies that have been ordered have been reviewed, and results considered in the medical decision making process. GIGU Course/Dx - Course Course Of Treatment: Ms. Valdez presented to the emergency department tachycardic and pale after having several episodes of bright red blood per rectum. She is recently had a presumably lower GI bleed and been hospitalized twice. The second time she was hospitalized she got an sigmoidoscopy by Dr. Juarez who found rectal ulcers and prescribed mesalamine suppositories. On arrival here 2 IVs were started and she was given normal saline 2 L while we obtained blood. Her hemoglobin had dropped from 9.6-8.2 prior to the saline so the decision was made to transfuse her. She had to have irradiated blood recently secondary to a reaction. She has a history of leukemia in remission. Her heart rate went from the 130s to about 100 with saline. She is on metoprolol and took her 50 mg of metoprolol this morning. Dr. Conway was contacted and reported that during her recent admission he discussed a full colonoscopy with Dr. Salcido. 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 at [facility] was contacted and accepted transfer. She is transferred in stable condition. She had only a small amount of bleeding here in the emergency department. - Diagnoses Provider Diagnoses: Lower GI bleed - Physician Notifications Discussed Care Of Patient With: Dr. Webb - Dr. Webb is a hospitalist at [facility]. Time Discussed With Above Provider: 12:50 Instructed by Provider To: Transfer - The pt will be taken under the care of Dr. Webb at [facility] in [place]. Admit/Transition Orders Completed By ED Provider: Yes Reason For Transfer: Specialty or service not available at [facility]. - Critical Care Time Critical Care Time: 30-74 min Discharge - Sign-Out/Discharge Documenting (check all that apply): Discharge/Admit/Transfer - Pt will be transferred to [facility]. - Discharge Plan Condition: Stable Disposition: TRANS HIGHER LVL OF CARE FAC Referrals: Saira Little MD [Primary Care Provider] - - Billing Disposition and Condition Condition: STABLE Disposition: Trans Higher Lvl of Care Fac The documentation as recorded by the Dimitry de santiago Natalie accurately reflects the service I personally performed and the decisions made by me, Oscar Livingston MD.
[2018-03-07 16:18] VITALS: BP 169/78
== END 2018-03-07 16:24 | disposition short-term general hospital (02) ==
LOC: ED 11:22
DX: K92.2 Gastrointestinal hemorrhage, unspecified (principal); R53.1 Weakness
CPT/HCPCS: 36415; 36430; 80053; 85025; 85610; 85730; 86850; 86900; 86901; 86922; 99285; P9040

== ENCOUNTER 2018-07-21 10:09 | Inpatient (IN) | payer MEDICARE, BC ==
[2018-07-21] MEDS ORDERED: NS 0.9% 1000 ML* 1,000 ML IV ONE (10:18)
--- NOTE | 2018-07-21 10:34 | ED ---
Altered Mental Status - HPI Summary HPI Summary: Patient is a 73 y/o F presenting with AMS onsetting last night. reports that patient has been confused onsetting last night. reports that patient's Sx have worsened since onset, with patient being unable to put on her socks this morning and having weird responses to questions. states that patient had a "tiring" day yesterday and had complaints of a slight headache, for which she took extra-strength Tylenol. In the room, patient denies pain, PERLA , nausea, neck pain. She states she does not know the name of the hospital she is currently in. When asked to raise her arms multiple times, she responded "yes " the first few times before she raised her arms. PMHx of leukemia, patient is seen by Dr. Baca. states patient was seen by Dr. Baca last week. He reports that she discontinued one of her medications but cannot recall which one. PMHx of GI bleed last February. notes that patient has an unsteady gait at baseline. On triage, pain is denied. Nothing is noted to aggravate/alleviate Sx. Home medications and allergies are reviewed. - History Of Current Complaint Chief Complaint: EDAltMentalStatus Stated Complaint: CONFUSION Time Seen by Provider: 07/21/18 10:17 Hx Obtained From: Patient, Family/Cake Maker - Onset/Duration: Still Present Timing: Constant, Lasting Days - onset yesterday Severity Currently: None Character: Confusion Aggravating Factor(s): Nothing Alleviating Factor(s): Nothing Associated Signs And Symptoms: Positive: Headache - patient had complaints of slight headache yesterday, none presently. Negative: Nausea - Allergies/Home Medications Allergies/Adverse Reactions: Allergies Allergy/AdvReac Type Severity Reaction Status Date / Time nicole Allergy Severe Swelling Verified 07/21/18 10:17 Of Face,Lips,& Throat pregabalin Allergy Severe See Comment Verified 07/21/18 10:17 raspberry Allergy Severe Swelling Verified 07/21/18 10:17 Of Face,Lips,& Throat cefuroxime Allergy Intermediate Hives Verified 07/21/18 10:17 levofloxacin Allergy Intermediate Hives Verified 07/21/18 10:17 milk Allergy See Comment Verified 07/21/18 10:17 honey AdvReac Severe Nausea And Verified 07/21/18 11:13 Vomiting erythromycin base AdvReac Intermediate Vomiting Verified 07/21/18 11:13 morphine AdvReac Intermediate Vomiting Verified 07/21/18 11:13 onion AdvReac Mild Stomach Verified 07/21/18 11:13 Cramps pepper (genus Capsicum) AdvReac Mild Stomach Verified 07/21/18 11:13 Cramps Environmental Allergy Mild Congestion Uncoded 03/24/18 11:36 HAWIAAN PUNCH Allergy Mild Diarrhea Uncoded 03/24/18 11:36 Home Medications: Home Medications Allopurinol TAB* [Zyloprim 300 MG TAB*] 300 mg PO DAILY PRN 07/21/18 [History Confirmed 07/21/18] Cholecalciferol CAP/TAB(NF) [Vitamin D3 CAP/TAB (NF)] 5,000 unit PO DAILY [History Confirmed 07/21/18] Enoxaparin(*) [Lovenox(*)] 150 mg SUBCUT DAILY 07/21/18 [History Confirmed 07/21] Lactobacillus Acidophilus [Probiotic] 1 cap PO DAILY 07/21/18 [History Confirmed 07/21/18] Mesalamine RECTAL SUSP* 4 gm AL BEDTIME 07/21/18 [History Confirmed 07/21/18] Polyethylene Glycol 3350* [Miralax*] 17 gm PO BID 07/21/18 [History Confirmed ] Potassium Chlor TAB* [Klor Con ER TAB*] 20 meq PO DAILY 07/21/18 [History Confirmed 07/21/18] Prochlorperazine TAB* [Compazine Tab*] 5 - 10 mg PO Q6H PRN 07/21/18 [History Confirmed 07/21/18] Triamcinolone 0.1% CREAM (NF) [Kenalog 0.1% Cream (NF)] 1 applic TOPICAL BID [History Confirmed 07/21/18] Ubidecarenone/[place]-3/Vit E [Co Q-10 Vitamin E Fish Oi] 1 cap PO DAILY 07/21/18 [History Confirmed 07/21/18] PMH/Surg Hx/FS Hx/Imm Hx Endocrine/Hematology History: Reports: Hx Bone Marrow Disease, Hx Anemia Denies: Hx Diabetes Cardiovascular History: Reports: Hx Deep Vein Thrombosis, Hx Embolism, Hx Hypercholesterolemia, Hx Hypertension, Other Cardiovascular Problems/Disorders - VARICOSE VEINS Denies: Hx Pacemaker/ICD Comment Only: Hx Peripheral Vascular Disease - VARICOSE VEINS Respiratory History: Reports: Hx Pneumonia - SEPTIC PNEUMONIA: IN PT ICU 10/06/15 , Hx Pulmonary Embolism - PULMONARY ARTERY BLOOD CLOT, 11/2015 AFTER BOUT WITH PNEUMONIA, Other Respiratory Problems/Disorders - IN PT ICU /PNEUMONIA 10/06/15 Denies: Hx Asthma, Hx Chronic Obstructive Pulmonary Disease (COPD) GI History: Reports: Hx Gastrointestinal Bleed, Other GI Disorders - MULTIPLE FOOD ALLERGIES History: Reports: Other Problems/Disorders - ACUTE KIDNEY FAILURE Denies: Hx Renal Disease Musculoskeletal History: Reports: Hx Arthritis, Hx Back Problems, Hx Gout, Other Musculoskeletal History - GOUT Sensory History: Reports: Hx Contacts or Glasses, Hx Glaucoma - BILATERAL Denies: Hx Hearing Aid Opthamlomology History: Reports: Hx Contacts or Glasses, Hx Glaucoma - BILATERAL Neurological History: Reports: Hx Headaches Denies: Hx Seizures, Hx Spinal Cord Injury, Hx Transient Ischemic Attacks ( TIA) Psychiatric History: Reports: Hx Anxiety - R/T MRI Denies: Hx Panic Disorder - Cancer History Cancer Type, Location and Year: leukemia - Surgical History Surgery Procedure, Year, and Place: CSECTION X2 1982, 1985. DENTAL IMPLANT 2006 , 12/21, L4-5 sx 2014 Hx Anesthesia Reactions: No Infectious Disease History: No Infectious Disease History: Reports: Hx Shingles - NOT ACTIVE Denies: Traveled Outside the [place] in Last 30 Days - Family History Known Family History: Negative: Renal Disease, Respiratory Disease, Seizure Disorder, Blood Disorder - Social History Alcohol Use: None Alcohol Amount: ONCE A YEAR Hx Substance Use: No Substance Use Type: Reports: None Hx Tobacco Use: No Smoking Status (MU): Never Smoked Tobacco Review of Systems Negative: Nausea Positive: Other - NEGATIVE: neck pain Positive: Headache - patient had complaints of slight headache yesterday, none presently Psychological: Other - POSITIVE: AMS All Other Systems Reviewed And Are Negative: Yes Physical Exam - Summary Physical Exam Summary: Appearance: Well-appearing, Well-nourished, lying in bed comfortably Skin: Warm, dry, no obvious rash Eyes: sclera anicteric, no conjunctival pallor ENT: mucous membranes moist, pharynx appears normal Neck: Supple, nontender Respiratory: Clear to auscultation, no signs of respiratory distress Cardiovascular: Normal S1, S2. No murmurs. Normal distal pulses in tibial and radial bilaterally. Abdomen: Soft, nontender, normal active bowel sounds present Musculoskeletal: Normal, Strength/ROM Intact Neurological: awake and alert, speech is fluent but can only answer some questions, disoriented to time and place. Patient can follow most simple commands, but sometimes she does not. Motor exam seems symmetric, good muscle tone, no bulbar paresis. No facial droop. No ataxia. Gait was not tested. GCS 15. Psychiatric: affect is normal, does not appear anxious or depressed Triage Information Reviewed: Yes Vital Signs On Initial Exam: Initial Vitals Temp Pulse Resp BP Pulse Ox 98.8 F 109 16 167/92 96 07/21/18 10:09 07/21/18 10:09 07/21/18 10:09 07/21/18 10:09 07/21/18 10:09 Vital Signs Reviewed: Yes Diagnostics - Vital Signs Vital Signs Temp Pulse Resp BP Pulse Ox 07/21/18 10:09 98.8 F 109 16 167/92 96 - Laboratory Result Diagrams: 07/21/18 10:39 07/21/18 10:39 Lab Statement: Any lab studies that have been ordered have been reviewed, and results considered in the medical decision making process. - CT BRAIN CT CT Interpretation Completed By: Radiologist Summary of CT Findings: BRAIN CT IMPRESSION: NO ACUTE INTRACRANIAL PATHOLOGY. THIS REPORT WAS REVIEWED BY ED PHYSICIAN. - EKG 1034 Cardiac Rate: NL - rate of 99 bpm EKG Rhythm: Sinus Rhythm Summary of EKG Findings: probable left atrial enlargement Altered Mental Statu Course/Dx - Course Course Of Treatment: Patient is a 73 y/o F presenting with AMS onsetting last night. reports that patient has been confused onsetting last night. reports that patient's Sx have worsened since onset, with patient being unable to put on her socks this morning and having weird responses to questions. states that patient had a "tiring" day yesterday and had complaints of a slight headache, for which she took extra-strength Tylenol. In the room, patient denies pain, PERLA, nausea, neck pain. She states she does not know the name of the hospital she is currently in. When asked to raise her arms multiple times, she responded "yes" the first few times before she raised her arms. PMHx of leukemia, patient is seen by Dr. Baca. states patient was seen by Dr. Baca last week. He reports that she discontinued one of her medications but cannot recall which one. PMHx of GI bleed last February. notes that patient has an unsteady gait at baseline. On physical exam, patient is noted to be awake and alert, speech is fluent but can only answer some questions, disoriented to time and place. Patient can follow most simple commands, but sometimes she does not. Motor exam seems symmetric, good muscle tone, no bulbar paresis. No facial droop. No ataxia. Gait was not tested. GCS 15. During ED course, patient was given fluids and Haldol 5 mg IV PUSH, two doses. EKG showed normal sinus rhythm and rate of 99 BPM with probable left atrial enlargement. BRAIN CT IMPRESSION: NO ACUTE INTRACRANIAL PATHOLOGY. Labs showed chloride 100, glucose 127, lactic acid 1.0, calcium 10.3, trop 0.01. UA showed 2+ protein, trace ketones, present squamous epith cells, trace WBC, RBC, no bacteria or glucose. Patient's case discussed with Dr. Mendoza, who recommends consult with oncology. After discussing case with Dr. Baca and Dr. Conway, Dr. Conway accepted patient to his services. Dx of AMS. - Diagnoses Provider Diagnoses: Altered mental status - Provider Notifications Discussed Care Of Patient With: Cecilia Mendoza Time Discussed With Above Provider: 13:44 Instructed by Provider To: Other - Patient's case was discussed with Dr. Mendoza at 1344, she recommends consulting with Dr. Baca to see if patient is still being actively treated for her leukemia. 1353 - Dr. Baca was contacted, discussed patient's case. She believes patient should go to oncology service and to contact Dr. Conway. 1400 - Dr. Cownay was consulted, will admit to his services. Discharge - Sign-Out/Discharge Documenting (check all that apply): Patient Departure - admit - Discharge Plan Condition: Stable Disposition: ADMITTED TO [facility] - Billing Disposition and Condition Condition: STABLE Disposition: Admitted to [facility] - Attestation Statements Document Initiated by Scribe: Yes Documenting Scribe: Jayesh Forbes Provider For Whom Scribe is Documenting (Include Credential): Oscar Kelly MD Scribe Attestation: Jayesh Osborn , scribed for Oscar Kelly MD on 07/22/18 at 1135. Scribe Documentation Reviewed: Yes Provider Attestation: The documentation as recorded by the scribe, Jayesh Forbes accurately reflects the service I personally performed and the decisions made by me, Oscar Kelly MD
[2018-07-21 10:53] LABS: ABS Basophils 0 10^3/ul (0-0.2); ABS Eosinophils 0 10^3/ul (0-0.6); ABS Lymphocytes 1.2 10^3/ul (1.0-4.8); ABS Monocytes 0.6 10^3/ul (0-0.8); ABS Neutrophils 5.5 10^3/ul (1.5-7.7); ABS Nucleated RBC 0 10^3/ul; Eosinophil % 0.6 % (0-6); Hematocrit 43 % (35-47); Hemoglobin 14.5 g/dl (12.0-16.0); Lymphocyte % 16.8 % (25-47); Mean Corpuscular HGB Conc 34 g/dl (31-36); Mean Corpuscular Hemoglobin 34 pg (27-31); Mean Corpuscular Volume 100 fL (80-97); Mean Platelet Volume 9.5 fL (7.4-10.4); Nucleated Red Blood Cells % 0.1; Platelet Count 138 10^3/ul (150-450); Red Blood Count 4.29 10^6/ul (4.00-5.40); Red Cell Distribution Width 16 % (10.5-15); White Blood Count 7.5 10^3/ul (3.5-10.8)
[2018-07-21 11:11] LABS: EGFR Non-African American 70.5 (>60)
[2018-07-21] MEDS ORDERED: Haloperidol INJ IV/IM* 5 MG/ML AMP ONE (11:12)
[2018-07-21] MEDS: Haloperidol INJ IV/IM* 5 MG/ML AMP IV SLOW PU PRN ×2 (12:07→12:16)
[2018-07-21 13:07] LABS: Urine Appearance Clear; Urine Blood Negative (Negative); Urine Color Yellow; Urine Ketones Trace (Negative); Urine Protein 2+(100 mg/dL) (Negative); Urine Red Blood Cell Trace(0-2/hpf) (Absent); Urine Specific Gravity 1.016 (1.010-1.030); Urine Urobilinogen Negative (Negative); Urine White Blood Cell Trace(0-5/hpf) (Absent)
[2018-07-21] MEDS ORDERED: Iohexol 350* (CONTRAST) 500 ML MDV IV ONE (15:35)
[2018-07-21 16:32] LABS: INR 0.88 (0.77-1.02)
[2018-07-21] MEDS: Aspirin TAB* 325 MG PO SCH (18:51)
[2018-07-21] MEDS: Metoprolol Tartrate TAB* 100 MG TAB PO SCH (18:51)
[2018-07-21] MEDS: MESALAMINE 4 GM/60 ML PR SCH (20:51)
[2018-07-21] MEDS: Acyclovir* 200 MG CAP PO SCH (20:52)
[2018-07-21] MEDS: Latanoprost 0.005%* 2.5 ml BTL BOTH EYES SCH (20:53)
--- NOTE | 2018-07-21 21:19 | CONS ---
NEUROLOGY CONSULT NOTE: DATE OF CONSULT: 07/21/18 CONSULTING PROVIDER: Sabrina Diamond NP. REASON FOR CONSULT: Word finding difficulty. CHIEF COMPLAINT: Agitation and minimally verbal. HISTORY OF PRESENT ILLNESS: Mrs. Valdez is a 73-year-old female who has history of hypertension, leukemia, dyslipidemia, DVT, who is on Lovenox for which she takes 150 mg subcutaneous daily, who presents to [facility] with a 1-day history of confusion. The patient was last known well yesterday morning. The exact time is unknown. I personally spoke to Mr. Valdez , who provided most of the history because the patient has aphasia. Mr. Valdez stated that he left that morning and is sure that the patient was last known while at that time. He came home late last night at 8 p.m. He found that the patient appeared slightly acting unusual. The patient asked a question about her mother, which was atypical. She was also complaining of headaches. The patient woke up this morning at approximately 7-8 a.m. and she was having trouble with confusion. She was unable to put her shoes on. She did not want breakfast. She was not speaking or answering her . He then alerted his son, who is a hospitality internship, who recommended that she should go to ER for further evaluation. The patient was examined by me. The patient received Haldol this afternoon for agitation. She is coherent and follows simple command. She is exhibiting aphasia and has right facial droop. NIH stroke scale is 5, 1 for missing one of the orientation questions, 1 for minor facial paralysis, 1 for severe aphasia with fragmentary expression, inference needed, cannot identify materials, and 1 for tactile inattention. The patient had a CT of the head completed on 07/21/18 that showed no evidence of acute intracranial abnormality. She had an electrocardiogram that showed no arrhythmias. There is a sinus rhythm with heart rate between 60 to 99. PAST MEDICAL HISTORY: 1. Hypertension. 2. Leukemia. 3. Dyslipidemia. 4. Gout. 5. Allergic rhinitis. 6. C-sections x2. 7. L4-5 laminectomy. 8. ORIF of the right proximal humerus fracture. MEDICATIONS: 1. Metoprolol 50 mg tablet in the morning. 2. Latanoprost eye drops. 3. Tramadol 50 mg p.o. every 6 hours as needed for pain. 4. Metoprolol 100 mg at night. 5. Ondansetron 4 mg p.o. t.i.d. as needed. 6. Methylcellulose 1000 mg p.o. daily. 7. Loratadine 10 mg p.o. daily. 8. Docusate 200 mg p.o. b.i.d. 9. Cyanocobalamin 1000 mcg p.o. twice weekly. 10. Acyclovir 400 mg p.o. twice daily. 11. Prochlorperazine 5 to 10 mg p.o. every 6 hours as needed. 12. Mesalamine 4 g P.R. at bedtime. 13. Allopurinol 300 mg p.o. daily as needed. 14. Enoxaparin 150 mg subcutaneously daily. ALLERGIES: HONEY, LYRICA, CEFUROXIME, ERYTHROMYCIN, LEVAQUIN, SARINA, MILK, MORPHINE, PEPPER, RASPBERRIES, PUNCH, and ONIONS. SOCIAL HISTORY: The patient lives with her . She denied any alcohol or tobacco use. FAMILY HISTORY: Mother suffered from recurrent TIAs. REVIEW OF SYSTEMS: Unable to be obtained due to aphasia; however, the patient did deny all 14-point review of systems when asked. I do not think that this is an accurate review of systems. PHYSICAL EXAMINATION: Vitals: Temperature of 99.9, heart rate 102, respiratory rate 17, blood pressure 157/116. Con: Obese female, in no acute distress. She is alert, cooperative, but slightly irritable with further questioning. Head: Normocephalic/atraumatic. Eyes: Conjunctivae/corneas are clear. Neck is supple and symmetrical with no carotid bruits. Lungs are clear to auscultation bilaterally, nonlabored breathing. Cardiovascular: Regular rate and rhythm with normal S1, S2. Extremities: Normal range of motion with no cyanosis. Skin: No skin lesions or lacerations. Psych: Affect is broad and normal mood. Neurological Examination: Mental Status: Awake, alert, oriented to person and place, but not to general circumstances. She has mixed, but with expressive greater than receptive aphasia. She has lost inability to express name and repeat. She did comprehend to simple command. She was unable to write. Cranial Nerves: Normal confrontation testing bilaterally. She had widening of the palpebral fissure on the right side. Sensation is intact in the forehead, cheeks, and jaw region bilaterally. She has right central facial weakness. She is able to hear throughout the history process. Symmetrical palatal elevation. She has normal strength against shoulder resistance. Tongue is symmetrical and midline with no atrophy or fasciculation. Motor: She has mild pronator drift on the right upper extremity. Otherwise, she has 5/ 5 strength throughout the upper and lower extremities. Reflexes, right/left: 2/ 1 for the brachioradialis, biceps 2/1, triceps 2/1, patella 2/1, ankle 1/1, plantar flexor/flexor. Sensation: She has tactile extinction to light touch on the right face, arm, and leg. Otherwise, intact sensation throughout. Reduced vibration at the great toes bilaterally measuring about 6 seconds, but this was difficult to perform with a patient with aphasia. Coordination: Reduced rapid alternating movement on the right upper extremity. Normal finger- to-nose testing. Gait was not assessed. LABORATORY TESTING: WBC of 7.5, hemoglobin of 14.5, hematocrit 43, platelet count of 138. Sodium of 136, potassium of 3.6, creatinine 0.80. Urinalysis, no pyuria. ASSESSMENT AND RECOMMENDATIONS: 1. Mrs. Lakeisha Valdez is a 73-year-old female who is presenting with mixed aphasia. I suspect the patient has a left MCA vascular territory infarction involving the frontal and parietal hemispheres. NIH stroke scale was 5. She is not a candidate for IV TPA given that her last known well time was over her therapeutic window. She is not a candidate for a mechanical thrombectomy given that we do not have a CTA available, but also with further history and clarification from Mr. Valdez, the patient was last known well yesterday morning. He saw her symptomatic or acting unusual last night at 8 p.m. The etiology of the stroke is unclear at this time. She is not on full dose anticoagulation therapy and therefore, if she has history of DVT and she could potentially have an ASD or PFO that may have caused a paradoxical emboli. Please obtain a transthoracic echo with bubble study. Please order a stat CTA head and neck to evaluate for any large vessel disease and to see if there is evidence of large vessel occlusion and her ASPECT score is high, she may benefit from endovascular therapy, but I do not think this is going to be the case here. Please order an MRI without contrast to confirm the stroke. I do not suspect the patient has any complication related to her leukemia. She does not have any current headaches or elevation in white count. Low-grade fever may have been induced from her agitation or from her neuroleptic that she received earlier today, however, we will continue to monitor for any infectious etiology. Please admit to the oncology/hospitalist service. Neuro checks every 4 hours for the next 24 hours. Please obtain a TSH, B12, A1c, and lipid panel if not yet ordered. Please start her on aspirin 325 mg x1 and continue 81 mg starting tomorrow. Allow permissive blood pressure control of systolic blood pressure less than 200 and diastolic less than 110. Please consult PT/OT/ ELECTRICAL TRYOUT PERSON to evaluate and treat. Please perform bedside swallow evaluation. Secondary stroke prevention and stroke education was completed with the patient and her . We discussed weight loss and controlling her blood pressure to prevent further stroke. Do not place urinary catheter unless there is evidence of urinary retention. VTE prophylaxis is with enoxaparin. 2. Hypertensive urgency. 3. History of leukemia. TIME SPENT: I spent a total of 75 minutes and greater than 50% of that was spent directly reviewing the medical chart, obtaining history, examining the patient, education and counseling, and discussing the treatment plan and prognosis. I will continue to follow. I also discussed this case in detail with Kayla Sabrina Dara. [id number]/[facility] #: [id number] SAMANTHA
[2018-07-22] MEDS ORDERED: Haloperidol INJ IV/IM* 5 MG/ML AMP IV SLOW PU ONE (02:00)
[2018-07-22] MEDS ORDERED: Metoprolol Tartrate IV* 1 MG/ML 5 ML VIAL IV PRN ×2 (08:58→11:37)
[2018-07-22] MEDS ORDERED: Enoxaparin(*) 150 MG/ML 1 ML SYRINGE SUBCUT SCH (09:00)
[2018-07-22] MEDS ORDERED: NS 0.9% 250 ML* 250 ML IV SCH (09:00)
[2018-07-22] MEDS: Aspirin 81 mg CHEW TAB* 81 MG TAB.CHEW PO SCH ×2 (09:41→12:05)
[2018-07-22] MEDS: Acyclovir* 200 MG CAP PO SCH ×3 (09:44→20:23)
[2018-07-22] MEDS: Metoprolol Tartrate TAB* 50 mg PO SCH ×2 (09:44→11:38)
[2018-07-22] MEDS: Aspirin TAB* 325 MG PO SCH (09:45)
--- NOTE | 2018-07-22 11:19 | PN ---
Subjective Date of Service: 07/22/18 Length of Stay: 1 Days Neurology is following Mrs. Valdez for the evaluation and management of delirium and stroke Interval History: She was transferred to three different rooms last night. She became delirious, agitated, was attempting to climb out bed, and required Haldol to calm her down. She is lethargic this morning but does answer some questions appropriately. She continues to have mixed aphasia. She denied any headache or visual disturbance. Mr. Valdez is at bedside. Review of Systems: Denied headache or visual disturbance Denied CP, SOB, or palpitations. Objective Active Medications: Acyclovir (Zovirax Cap*) 400 mg PO BID [facility] Last Admin: 07/22/18 09:44 Dose: Not Given Aspirin (Aspirin 81 Mg Chew Tab*) 81 mg PO DAILY [facility] Last Admin: 07/22/18 09:41 Dose: Not Given Enoxaparin Sodium (Lovenox(*)) 140 mg SUBCUT DAILY [facility] Last Admin: 07/22/18 09:07 Dose: 140 mg Heparin Sodium (Porcine) (Heparin Flush Port (Ivad)) 5 ml FLUSH DAILY [facility]; Protocol Last Admin: 07/22/18 09:11 Dose: 5 ml Sodium Chloride (Ns 0.9% 250 Ml*) 250 mls @ 50 mls/hr IV PER RATE [facility] Stop: 07/22/18 18:00 Last Admin: 07/22/18 10:35 Dose: 50 mls/hr Latanoprost (Xalatan 0.005%*) 1 drop BOTH EYES BEDTIME [facility] Last Admin: 07/21/18 20:53 Dose: 1 drop Mesalamine (Mesalamine Rectal Susp*) 4 gm RI BEDTIME [facility] Last Admin: 07/21/18 20:51 Dose: Not Given Metoprolol Tartrate (Lopressor Tab*) 50 mg PO QAM [facility] Last Admin: 07/22/18 09:44 Dose: Not Given Metoprolol Tartrate (Lopressor Tab*) 100 mg PO QPM [facility] Last Admin: 07/21/18 18:51 Dose: 100 mg Metoprolol Tartrate (Lopressor Iv*) 5 mg IV Q6H PRN PRN Reason: BLOOD PRESSURE Last Admin: 07/22/18 09:50 Dose: 5 mg Vital Signs 07/21/18 07/21/18 07/21/18 11:21 12:02 12:19 Temperature Pulse Rate Respiratory 31 17 19 Rate Blood Pressure 171/85 169/119 (mmHg) O2 Sat by Pulse Oximetry 07/21/18 07/21/18 07/21/18 12:22 13:00 14:00 Temperature Pulse Rate Respiratory 16 17 16 Rate Blood Pressure 157/116 (mmHg) O2 Sat by Pulse Oximetry 07/21/18 07/21/18 07/21/18 15:02 15:22 16:02 Temperature 99.9 F 99.9 F Pulse Rate 102 Respiratory 16 Rate Blood Pressure 163/86 163/86 (mmHg) O2 Sat by Pulse 96 Oximetry 07/21/18 07/21/18 07/21/18 17:24 19:23 20:00 Temperature 98.5 F 97.8 F Pulse Rate 108 115 Respiratory 24 18 18 Rate Blood Pressure 174/87 175/91 (mmHg) O2 Sat by Pulse 95 94 Oximetry 07/21/18 07/22/18 07/22/18 23:28 06:20 10:05 Temperature 98.5 F 98.5 F 98.3 F Pulse Rate 88 107 116 Respiratory 16 20 19 Rate Blood Pressure 185/84 181/106 214/178 (mmHg) O2 Sat by Pulse 97 94 98 Oximetry Intake and Output Last 24 Hours 07/20/18 07/21/18 07/22/18 07/23/18 06:59 06:59 06:59 06:59 Intake Total 1000 120 Balance 1000 120 Weight 220 lb Intake: IV Fluids 1000 Oral 0 120 Other: Estimated Void Medium # Bowel Movements 0 # Voids 1 Oxygen Devices in Use Now: None Neurology Exam: General: ill appearing obese female in no acute disress HEENT: Normocephelic/atraumatic, sclera anicteric, mucous membranes moist Neck: Supple Chest: Clear to auscultation bilaterally Cardiovascular: Regular rate and rhythm without murmurs, rubs, gallops Neurological Findings: Awake, and fluctuation in mentation where at one minute she is alert and oriented but the other is confused and difficult to arouse. Cranial Nerve: PERRL, EOM-I, right facial asymmetry. Motor: she moves all 4 extremities spontaneously. Sensation: intact to LT/PP bilaterally upper and lower extremities Deep Tendon Reflex: 2+ symmetric in the upper/lower extremities, Babinski - down going Gait: not performed Result Diagrams: 07/22/18 12:55 07/21/18 10:39 Assessment/Plan 1. Acute encephalopathy manifesting as hyperactive delirium- unclear etiology but it could be related to hypertensive encephalopathy vs toxic-metabolic encephalopathy. There was triphasic waves seen on EEG which is consistent with the latter diagnosis. Recommendations: Ordered ammonia, TSH, and B12 level Neuro checks every 4 hours Metoprolol 5 mg IV every 4-6 hours. Targeted cuff BP goal is <180/110 for the next 24 hours, then back down to normotensive. Practice delirium measures. If encephalopathy persist despite controlling her BP, then an LP will be considered to rule out any leptomeningeal mets (less likely).She will need to be off lovenox for 12 hours. Hold off on repeating a contrasted MRI of the brain for now. 2. Acute small left MCA vascular territory ischemic infarction- There was no evidence of intra or extracranial disease on CTA head and neck. Therefore, the stroke is likely related to a more proximal emboli (cardiac). Pending TTE. If negative, she will need YULISA. The management will not change since the patient is already on full dose anticoagulation therapy. I agree with adding aspirin 81 mg for now. Started atorvastatin 80 mg nightly. She has a milk allergy and statin therapy has some milk product. Spoke to pharmacy and there is no other substitute. Please closely monitor her after she takes the first dose. Continue PT/OT/TRANSMISSION BUILDER evaluation and treatment. 3. Hx of DVT- Discussed case with Dr. Baca who confirmed that Lovenox 150 mg a day is therapeutic for DVT treatment. Defer treatment to the primary team. 4. Dyslipidemia- started on high intensity statin therapy (atorvastatin 80 mg nightly). Time spent: 40 minutes of which >50% spent reviewing the medical records, examining the patient, and discussing the treatment plan as mentioned above.
[2018-07-22 13:19] LABS: ABS Basophils 0 10^3/ul (0-0.2); ABS Eosinophils 0 10^3/ul (0-0.6); ABS Lymphocytes 1.3 10^3/ul (1.0-4.8); ABS Monocytes 0.7 10^3/ul (0-0.8); ABS Neutrophils 6.1 10^3/ul (1.5-7.7); ABS Nucleated RBC 0 10^3/ul; Eosinophil % 0.1 % (0-6); Hematocrit 43 % (35-47); Hemoglobin 14.6 g/dl (12.0-16.0); Lymphocyte % 16.4 % (25-47); Mean Corpuscular HGB Conc 34 g/dl (31-36); Mean Corpuscular Hemoglobin 34 pg (27-31); Mean Corpuscular Volume 100 fL (80-97); Mean Platelet Volume 9.4 fL (7.4-10.4); Nucleated Red Blood Cells % 0; Platelet Count 146 10^3/ul (150-450); Red Blood Count 4.29 10^6/ul (4.00-5.40); Red Cell Distribution Width 16 % (10.5-15); White Blood Count 8.1 10^3/ul (3.5-10.8)
[2018-07-22 15:56] LABS: EGFR Non-African American 68.5 (>60)
[2018-07-22] MEDS ORDERED: LORazepam INJ* 2 MG/ML 1 ML VIAL IV PUSH PRN (16:19)
[2018-07-22] MEDS: Atorvastatin* 80 MG TAB PO SCH (17:06)
[2018-07-22] MEDS: Metoprolol Tartrate TAB* 100 MG TAB PO SCH (17:07)
[2018-07-22] MEDS: MESALAMINE 4 GM/60 ML PR SCH (20:24)
[2018-07-22] MEDS: Latanoprost 0.005%* 2.5 ml BTL BOTH EYES SCH (20:27)
[2018-07-23] MEDS: Acyclovir* 200 MG CAP PO SCH ×2 (08:25→21:05)
[2018-07-23] MEDS: Aspirin 81 mg CHEW TAB* 81 MG TAB.CHEW PO SCH (08:26)
[2018-07-23] MEDS: Metoprolol Tartrate TAB* 50 mg PO SCH (08:26)
--- NOTE | 2018-07-23 09:24 | PN ---
Subjective Date of Service: 07/23/18 Length of Stay: 2 Days Neurology is following Mrs. Valdez for the evaluation and management of confusion state. Interval History: She may have pulled her port yesterday as it was not flushing. The bedside nurse had to entirely remove the port. She's scheduled for port placement later today. The patient is more awake and calm today. She is requesting crowley with her breakfast. She recognized me from yesterday. She still has profound psychomotor slowing where she takes a 10-20 seconds to respond but is awake and smiling at times. She inappropriately laughed when I entered the room. She denied any weakness. Examiner can notice some right jacquie-neglect. She denied focal weakness or paresthesia. She did not require Ativan or Haldol overnight. BP is better controlled today. I reviewed her chemotherapy treatments with Dr. Baca. Pt completed HiDAC and anthracycline. Last chemo dose was the summer. Review of Systems: Denied CP, SOB, or palpitations. Objective Active Medications: Acyclovir (Zovirax Cap*) 400 mg PO BID [facility] Last Admin: 07/23/18 08:25 Dose: 400 mg Aspirin (Aspirin 81 Mg Chew Tab*) 81 mg PO DAILY [facility] Last Admin: 07/23/18 08:26 Dose: 81 mg Atorvastatin Calcium (Lipitor*) 80 mg PO 1700 [facility] Last Admin: 07/22/18 17:06 Dose: 80 mg Cyanocobalamin (Vitamin B12 Inj *) 1,000 mcg IM DAILY [facility] Stop: 07/25/18 23:59 Heparin Sodium (Porcine) (Heparin Flush Port (Ivad)) 5 ml FLUSH DAILY [facility]; Protocol Last Admin: 07/22/18 09:11 Dose: 5 ml Thiamine HCl 500 mg/ Sodium (Chloride) 255 mls @ 255 mls/hr IV ONCE ONE Stop: 07/23/18 10:29 Latanoprost (Xalatan 0.005%*) 1 drop BOTH EYES BEDTIME [facility] Last Admin: 07/22/18 20:27 Dose: 1 drop Lorazepam (Ativan Inj*) 1 mg IV PUSH Q6H PRN PRN Reason: ANXIETY Mesalamine (Mesalamine Rectal Susp*) 4 gm OH BEDTIME [facility] Last Admin: 07/22/18 20:24 Dose: 4 gm Metoprolol Tartrate (Lopressor Tab*) 50 mg PO QAM [facility] Last Admin: 07/23/18 08:26 Dose: 50 mg Metoprolol Tartrate (Lopressor Tab*) 100 mg PO QPM [facility] Last Admin: 07/22/18 17:07 Dose: 100 mg Metoprolol Tartrate (Lopressor Iv*) 5 mg IV Q4H PRN PRN Reason: BLOOD PRESSURE Vital Signs 07/22/18 07/22/18 07/22/18 10:05 11:42 11:51 Temperature 98.3 F 98.6 F Pulse Rate 116 106 Respiratory 19 18 Rate Blood Pressure 214/178 190/70 136/67 (mmHg) O2 Sat by Pulse 98 Oximetry 07/22/18 07/22/18 07/22/18 15:33 19:58 20:00 Temperature 96.9 F 97.5 F Pulse Rate 97 86 Respiratory 16 16 16 Rate Blood Pressure 146/112 141/61 (mmHg) O2 Sat by Pulse 93 95 Oximetry 07/22/18 07/23/18 07/23/18 23:31 03:33 07:29 Temperature 98.7 F 98.6 F 97.6 F Pulse Rate 102 95 88 Respiratory 20 20 18 Rate Blood Pressure 141/60 136/74 131/59 (mmHg) O2 Sat by Pulse 96 94 94 Oximetry Intake and Output Last 24 Hours 07/21/18 07/22/18 07/23/18 07/24/18 06:59 06:59 06:59 06:59 Intake Total 1000 586 Output Total 0 Balance 1000 586 Weight 220 lb Intake: IV Fluids 1000 226 NS (0.9%) 226 Oral 0 360 Output: Urine 0 Other: Estimated Void Medium Medium # Bowel Movements 0 1 Estimated Stool Amount Small # Voids 1 1 Oxygen Devices in Use Now: None Neurology Exam: General: Ill appearing confused female who is sitting in a chair eating breakfast. She has psychomotor slowing. HEENT: Normocephelic/atraumatic, sclera anicteric, mucous membranes moist Neck: Supple Chest: Clear to auscultation bilaterally Cardiovascular: Regular rate and rhythm without murmurs, rubs, gallops Extremities: No clubbing, cyanosis, or edema Neurological Findings: Awake, alert to self, place, and time. She has mild mixed aphasia. She has moderate psychomotor slowing. She repeated to me the plan of care that was discussed with her today. CN: PERRL, EOM-I, no facial asymmetry except for mild flattening of the NL fold and widening of the palpebral fissure on the right. Motor: Mild neglect on the right side. Did not elevate the right arm as strong as the left arm. She has significant bradykinesia. She is able to move both legs against some resistance. She has mild increase in tone on the right arm and leg. Sensory: She does not cooperate well but did notice an increase in temperature sensation on the left face, arm and leg by flinching. She did not seem to notice the cold sensation on the right side. Coordination: unable to cooperate Gait: wide based, used a walker to walk 10 feet to the door with PT. Result Diagrams: 07/22/18 12:55 07/22/18 15:24 Additional Lab and Data: B12: 198 TSH: 4.34 Ammonia: 45 Microbiology and Other Data: Microbiology 07/21/18 13:00 Urine Culture - Final Urine No Growth (<1,000 CFU/mL) Diagnostic Imaging: MRI brain without contrast: Area of DWI in the left parietal lobe. There is diffuse white matter changes suggestive of small vessel ischemia in the left cerebellum and bilateral periventricular region. Assessment/Plan 1. Acute encephalopathy manifesting as hyperactive delirium- unclear etiology but it could be related to hypertensive encephalopathy vs toxic-metabolic encephalopathy. Triphasic waves on EEG suggests a metabolic disturbance. However, a metabolic cause has not been found. She seems slightly better today , correlating with the drop in her BP, but she continues to have significant psychomotor slowing. There is no evidence of PRES on MRI. Chemotherapy induced encephalopathy is unlikely given the acuity of her presentation. Discussed with oncology, Dr. Baca who agrees that it's unlikely to be related to chemotherapy. The intermittent fluctuation of cognition could suggest complex partial seizures. We will repeat an EEG, and if there is rhythmic triphasic waves that were seen yesterday, we will do an Ativan trial to see if her mentation improves. I don't think she has a paraneoplastic syndrome given the temporal profile of the symptoms onset which was sudden. Recommendations: - Neuro checks every 4 hours - Keep BP within normal range - Ordered an MRI brain with contrast to evaluate for any leptomeningeal disease or contrast enhancing lesions - LP today to obtain cytology and flow cytometry to evaluate for metastatic disease, although incidence of MAP MAKER leukemia appears to be low in AML, especially with HiDAC treatment. - Check inflammatory markers. - Continue neuro-checks every 4 hours - Continue PT/OT evaluation and treatment 2. Acute small left MCA vascular territory ischemic infarction- There was no evidence of intra or extracranial disease on CTA head and neck. Ordered TTE. Evaluate for PFO as a possible source for paradoxical emboli. Continue aspirin 81 mg daily Continue atorvastatin 80 mg nightly. Fall precautions were discussed with the patient today 3. Hx of DVT- Discussed case with Dr. Baca who confirmed that Lovenox 150 mg a day is therapeutic for DVT treatment. Defer treatment to the primary team. She can resume the Lovenox following 4. Dyslipidemia- atorvastatin 5. AML- in remission 6. Lower range of normal B12- ordered for cyanocobalamin 1,000 mcg IM x 1 daily for 3 days. Then continue PO supplementation. Also ordered one dose of Thiamine 500 mg IV x 1. She has no evidence of alcohol abuse but may have nutritional related encephalopathy. Time spent: 50 minutes of which >50% spent reviewing the medical records, examining the patient, and discussing the treatment plan as mentioned above.
[2018-07-23] MEDS ORDERED: Thiamine IV* 500 MG in NS 0.9% 250 ML* 250 ML IV ONE (09:30)
--- NOTE | 2018-07-23 09:39 | PN ---
Progress Note - Progress Note Date of Service: 07/23/18 SOAP: Subjective: clinically appears to be improving. able to articulate (albeit slowly)to me today that she is here because she had a stroke. does not sound aphasic today Objective: Vital Signs Temp Pulse Resp BP Pulse Ox 97.6 F 88 18 131/59 94 07/23/18 07:29 07/23/18 07:29 07/23/18 07:29 07/23/18 07:29 07/23/18 07:29 sitting up in nad perr eomi op moist CTA bl s1 s2 nl port site clean, deaccessed obese nt +bs 1+ LE edema oriented x 3, slow purposeful speech without focal deficit did not ambulate Acyclovir (Zovirax Cap*) 400 mg PO BID [facility] Last Admin: 07/23/18 08:25 Dose: 400 mg Aspirin (Aspirin 81 Mg Chew Tab*) 81 mg PO DAILY [facility] Last Admin: 07/23/18 08:26 Dose: 81 mg Atorvastatin Calcium (Lipitor*) 80 mg PO 1700 [facility] Last Admin: 07/22/18 17:06 Dose: 80 mg Cyanocobalamin (Vitamin B12 Inj *) 1,000 mcg IM DAILY [facility] Stop: 07/25/18 23:59 Heparin Sodium (Porcine) (Heparin Flush Port (Ivad)) 5 ml FLUSH DAILY [facility]; Protocol Last Admin: 07/22/18 09:11 Dose: 5 ml Thiamine HCl 500 mg/ Sodium (Chloride) 255 mls @ 255 mls/hr IV ONCE ONE Stop: 07/23/18 10:29 Latanoprost (Xalatan 0.005%*) 1 drop BOTH EYES BEDTIME [facility] Last Admin: 07/22/18 20:27 Dose: 1 drop Lorazepam (Ativan Inj*) 1 mg IV PUSH Q6H PRN PRN Reason: ANXIETY Mesalamine (Mesalamine Rectal Susp*) 4 gm [place] BEDTIME [facility] Last Admin: 07/22/18 20:24 Dose: 4 gm Metoprolol Tartrate (Lopressor Tab*) 50 mg PO QAM [facility] Last Admin: 07/23/18 08:26 Dose: 50 mg Metoprolol Tartrate (Lopressor Tab*) 100 mg PO QPM [facility] Last Admin: 07/22/18 17:07 Dose: 100 mg Metoprolol Tartrate (Lopressor Iv*) 5 mg IV Q4H PRN PRN Reason: BLOOD PRESSURE Laboratory Results - last 24 hr 07/22/18 07/22/18 07/22/18 10:30 12:55 15:24 WBC 8.1 RBC 4.29 Hgb 14.6 Hct 43 MCV 100 H MCH 34 H MCHC 34 RDW 16 H Plt Count 146 L MPV 9.4 Neut % (Auto) 74.3 Lymph % (Auto) 16.4 L [place] % (Auto) 8.7 H Eos % (Auto) 0.1 Baso % (Auto) 0.5 Absolute Neuts (auto) 6.1 Absolute Lymphs (auto) 1.3 Absolute Monos (auto) 0.7 Absolute Eos (auto) 0 Absolute Basos (auto) 0 Absolute Nucleated RBC 0 Nucleated RBC % 0 Sodium Potassium Chloride Carbon Dioxide Anion Gap BUN Creatinine Est GFR ( Amer) Est GFR (Non-Af Amer) BUN/Creatinine Ratio Glucose Calcium Total Bilirubin AST ALT Alkaline Phosphatase Ammonia 45 Total Protein Albumin Globulin Albumin/Globulin Ratio Triglycerides 254 Cholesterol 334 LDL Cholesterol 246 HDL Cholesterol 37.1 Vitamin B12 TSH 07/22/18 15:24 WBC RBC Hgb Hct MCV MCH MCHC RDW Plt Count MPV Neut % (Auto) Lymph % (Auto) [place] % (Auto) Eos % (Auto) Baso % (Auto) Absolute Neuts (auto) Absolute Lymphs (auto) Absolute Monos (auto) Absolute Eos (auto) Absolute Basos (auto) Absolute Nucleated RBC Nucleated RBC % Sodium 137 Potassium 3.6 Chloride 102 Carbon Dioxide 27 Anion Gap 8 BUN 17 Creatinine 0.82 Est GFR ( Amer) 82.9 Est GFR (Non-Af Amer) 68.5 BUN/Creatinine Ratio 20.7 H Glucose 103 H Calcium 10.2 Total Bilirubin 0.60 AST 15 ALT 12 Alkaline Phosphatase 91 Ammonia Total Protein 6.8 Albumin 3.9 Globulin 2.9 Albumin/Globulin Ratio 1.3 Triglycerides Cholesterol LDL Cholesterol HDL Cholesterol Vitamin B12 198 TSH 4.34 Assessment: 73 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 Plan: appreciate neuro consultation. I do not think her chemotherpeutics are causing a delayed encephalopathy and would rule out organic causes first. -LP today -MRI with and without contrast -agree with B12 IM repletion, will do daily x 5 while inpatient -hold lovenox pending LP, dosing 1.5 mg/kg/dy for DVT to resume after LP DNR
[2018-07-23] MEDS ORDERED: Diazepam SYRINGE* 5 MG/ML 2 ML SYRINGE (10 MG total) IV ONE (11:52)
[2018-07-23] MEDS: Cyanocobalamin INJ * 1,000 MCG/ML VIAL 1 ML VIAL IM SCH (13:40)
[2018-07-23 16:03] LABS: Body Fluid Source Cerebral Spinal
--- NOTE | 2018-07-23 16:23 | EEG ---
ELECTROENCEPHALOGRAPHY: DATE OF SERVICE: 07/22/2018. ORDERING PROVIDER: Juani Cochran MD. MEDICATIONS: 1. Lopressor. 2. Acyclovir. 3. Xalatan. 4. Mesalamine. 5. Aspirin. 6. Lovenox. CLINICAL PROBLEM: Ms. Valdez is a 73-year-old female who presented with acute confusion state and was found to have a small left MCA vascular territory infarction. This EEG was obtained to evaluate for epileptiform abnormalities or electrographic seizures. STATE: Encephalopathic. REPORT: The EEG background was characterized by continuous high amplitude 50- 150 microvolts, diffuse 1-3 Hz delta slowing. There was no clear organization attributed to the resting background, which lacked clearly defined anterior to posterior voltage gradient or frequency. There was no posterior dominant rhythm. With verbal stimulation, there were faster frequencies seen throughout the recording. In a majority of the recording, the delta slowing became sharply contoured and took on a triphasic morphology predominantly seen in the frontocentral regions. There were areas, epochs, of 1-2 Hz diffuse slowing intermixed with the triphasic waves. The technologist reported that the patient was trying to pull off the wires, climb out of bed, and was able to respond to name and date of during the recording. There were no clear electrographic seizures noted throughout this recording. Hyperventilation and photic stimulation were not performed. CLINICAL IMPRESSION: This is an abnormal EEG due to the presence of diffuse but reactive high amplitude delta semirhythmic slowing with superimposed triphasic waves. These findings are suggestive of a nonspecific, moderate, diffuse encephalopathy that can be seen in the setting of toxic-metabolic disturbance. [id number]/[facility] #: [id number] [facility]OSPITALIlya
[2018-07-23] MEDS: Atorvastatin* 80 MG TAB PO SCH (18:04)
[2018-07-23] MEDS: Metoprolol Tartrate TAB* 100 MG TAB PO SCH (18:04)
[2018-07-23] MEDS ORDERED: Gadoteridol* (CONTRAST) 279.3 MG/ML 10 ML IV ONE (19:40)
[2018-07-23] MEDS: Latanoprost 0.005%* 2.5 ml BTL BOTH EYES SCH (20:59)
[2018-07-23] MEDS ORDERED: Enoxaparin(*) 150 MG/ML 1 ML SYRINGE SUBCUT SCH (21:00)
[2018-07-23] MEDS: MESALAMINE 4 GM/60 ML PR SCH (21:14)
--- NOTE | 2018-07-23 22:08 | PN ---
Progress Note - Progress Note Date of Service: 07/23/18 SOAP: Received a call from Dr. Bree Moore from [facility] at 2115 pm today regarding an urgent MRI abnormality. There is some abnormal sulcal flair signal intensity concerning for SAH. I spoke to Ezra, the patient's bedside nurse. Mrs. Valdez has been talkative and more cooperative with the night team when compared to yesterday. Multiple nurses tonight had reported improvement in her cognition and she is not having any headache. The finding on the MRI, which I was unable to review due to technical difficulty logging in to PACs, may have been related to the traumatic lumbar puncture done today. According to anesthesia, the patient had a traumatic tap with the first 2 tubes being bloody, but tubes 3 and 4 were reported to be clear. This excludes a SAH. It can possible be that some of the reported changes are due to the LP. To complicate the situiation, the patient had received her first dose of Lovenox for hx of DVT today at 2100, before the reported finding. She received a total of 150 mg x 1. She also had aspirin 81 mg this morning. Therefore, the decision was made to transfer the patient to the ICU for close hourly neuro checks. Please keep HOB at 30 Degrees. Please keep her SBP below [address] head without contrast in 6 hours (400 a.m.), or obtain a STAT CT head without contrast for any neurological changes. Ordered to hold aspirin and Lovenox. Discussed the case with the on-call mortar maker Dr. Márquez who will be covering tomorrow. He agreed that Protamine is not indicated at this time given the absent of any clinical symptoms. Spoke with the on-call NSG Dr. Burk who recommended a CT head in the morning. At this time, it is felt that the patient is asymptomatic from the suspected SAH , and observing her in the ICU is the best option overnight. Please contact me for any questions or if the patient has any acute neurological changes. Direct contact information [phone].
[2018-07-24 04:18] LABS: ABS Basophils 0.1 10^3/ul (0-0.2); ABS Eosinophils 0.1 10^3/ul (0-0.6); ABS Lymphocytes 1.5 10^3/ul (1.0-4.8); ABS Monocytes 0.8 10^3/ul (0-0.8); ABS Neutrophils 4.3 10^3/ul (1.5-7.7); ABS Nucleated RBC 0 10^3/ul; Eosinophil % 1.5 % (0-6); Hematocrit 42 % (35-47); Hemoglobin 13.9 g/dl (12.0-16.0); Mean Corpuscular HGB Conc 34 g/dl (31-36); Mean Corpuscular Hemoglobin 34 pg (27-31); Mean Corpuscular Volume 101 fL (80-97); Mean Platelet Volume 9.2 fL (7.4-10.4); Nucleated Red Blood Cells % 0.1; Platelet Count 138 10^3/ul (150-450); Red Cell Distribution Width 17 % (10.5-15); White Blood Count 6.9 10^3/ul (3.5-10.8)
[2018-07-24 04:36] LABS: EGFR Non-African American 25.1 (>60)
[2018-07-24] MEDS ORDERED: NS 0.9% 1000 ML* 1,000 ML IV ONE ×2 (08:10→09:29)
--- NOTE | 2018-07-24 08:35 | PN ---
Subjective Date of Service: 07/24/18 Length of Stay: 3 Days Neurology is following Mrs. Valdez for the evaluation and management of stroke and confusion. Interval History: The patient was moved to the ICU last night for concern of SAH. Please see my note from last night for more details. She had a CT head without contrast early this morning that showed no evidence of ICH or SAH. The findings on the MRI were most likely related to changes seen post LP. She has no leptomeningeal disease. This morning, the patient is more awake and conversing. She denied any focal weakness. She endorsed felling "slowly back to my old self." She denied any headache, visual disturbance or speech abnormality. She has moderate bradykinesia and slow speech. This is new to her and only started during this hospitalization. To recall, she received Haldol 5 mg IV on 07/21 and 5 mg IV on 07/22. She told the examiner to "have a great day" before exiting the room. The examiner spoke and updated Mr. Valdez this morning. Further history was also obtained. The patient has no history of memory problems. When she was in chemotherapy last summer, there were couple of incidents when she seemed confused, but it was transient. She has no history of tremors. She tripped and fell three years ago and broke her arm. She has been able to walk around the house, but slow and carefully since then. She drives to [place] and to local areas. She slowed down since the diagnosis of leukemia though. She last drove last week to a [employer] dinner. It was a short distance. There has been no chemical exposure around the house. Mr. Valdez does not spray the lawn or around the house with organophosphate or other chemicals. They do have an orchard that's a mile away from where they reside, and last time they sprayed was last spring. Review of Systems: Denied CP, SOB, or palpitations. Objective Active Medications: Acyclovir (Zovirax Cap*) 400 mg PO BID [facility] Last Admin: 07/23/18 21:05 Dose: 400 mg Atorvastatin Calcium (Lipitor*) 80 mg PO 1700 [facility] Last Admin: 07/23/18 18:04 Dose: Not Given Cyanocobalamin (Vitamin B12 Inj *) 1,000 mcg IM DAILY [facility] Stop: 07/25/18 23:59 Last Admin: 07/23/18 13:40 Dose: 1,000 mcg Heparin Sodium (Porcine) (Heparin Flush Port (Ivad)) 5 ml FLUSH DAILY [facility]; Protocol Last Admin: 07/23/18 13:41 Dose: 5 ml Sodium Chloride (Ns 0.9% 1000 Ml*) 1,000 mls @ 100 mls/hr IV .PER RATE ONE Stop: 07/24/18 18:09 Latanoprost (Xalatan 0.005%*) 1 drop BOTH EYES BEDTIME [facility] Last Admin: 07/23/18 20:59 Dose: 1 drop Lorazepam (Ativan Inj*) 1 mg IV PUSH Q6H PRN PRN Reason: ANXIETY Last Admin: 07/23/18 12:00 Dose: 1 mg Mesalamine (Mesalamine Rectal Susp*) 4 gm [place] BEDTIME [facility] Last Admin: 07/23/18 21:14 Dose: 4 gm Metoprolol Tartrate (Lopressor Tab*) 50 mg PO QAM [facility] Last Admin: 07/23/18 08:26 Dose: 50 mg Metoprolol Tartrate (Lopressor Tab*) 100 mg PO QPM [facility] Last Admin: 07/23/18 18:04 Dose: 100 mg Metoprolol Tartrate (Lopressor Iv*) 5 mg IV Q4H PRN PRN Reason: BLOOD PRESSURE Vital Signs 07/23/18 07/23/18 07/23/18 11:09 12:00 16:01 Temperature 98.6 F 97.3 F Pulse Rate 88 97 Respiratory 18 20 20 Rate Blood Pressure 149/60 122/84 (mmHg) O2 Sat by Pulse 95 96 Oximetry 07/23/18 07/23/18 07/23/18 16:37 19:28 20:00 Temperature 98.7 F Pulse Rate 114 Respiratory 16 20 18 Rate Blood Pressure 108/68 (mmHg) O2 Sat by Pulse 93 Oximetry 07/23/18 07/23/18 07/23/18 22:35 22:40 22:46 Temperature 98 F Pulse Rate 73 73 73 Respiratory 20 21 21 Rate Blood Pressure 150/81 150/81 135/69 (mmHg) O2 Sat by Pulse 95 96 95 Oximetry 07/23/18 07/23/18 07/24/18 23:00 23:01 00:00 Temperature Pulse Rate 75 73 75 Respiratory 21 21 20 Rate Blood Pressure 128/64 (mmHg) O2 Sat by Pulse 95 96 92 Oximetry 07/24/18 07/24/18 07/24/18 00:14 01:00 01:01 Temperature Pulse Rate 71 74 72 Respiratory 20 19 17 Rate Blood Pressure 134/78 146/76 (mmHg) O2 Sat by Pulse 97 94 98 Oximetry 07/24/18 07/24/18 07/24/18 01:06 02:00 02:01 Temperature Pulse Rate 72 76 71 Respiratory 19 23 20 Rate Blood Pressure 135/62 126/62 (mmHg) O2 Sat by Pulse 95 93 96 Oximetry 07/24/18 07/24/18 07/24/18 03:00 03:01 04:00 Temperature 97.6 F Pulse Rate 77 75 73 Respiratory 20 21 20 Rate Blood Pressure 119/62 (mmHg) O2 Sat by Pulse 91 97 93 Oximetry 07/24/18 07/24/18 07/24/18 04:04 05:00 05:01 Temperature Pulse Rate 69 72 72 Respiratory 20 20 19 Rate Blood Pressure 109/53 113/63 (mmHg) O2 Sat by Pulse 87 96 93 Oximetry 07/24/18 07/24/18 06:00 06:01 Temperature Pulse Rate 72 76 Respiratory 22 19 Rate Blood Pressure 88/59 (mmHg) O2 Sat by Pulse 90 93 Oximetry Intake and Output Last 24 Hours 07/22/18 07/23/18 07/24/18 07/25/18 06:59 06:59 06:59 06:59 Intake Total 1000 586 820 Output Total 0 0 Balance 1000 586 820 Weight 220 lb 212 lb 15.465 oz Intake: IV Fluids 1000 226 NS (0.9%) 226 Oral 0 360 820 Output: Urine 0 0 Other: Estimated Void Medium Medium Small # Bowel Movements 0 1 1 Estimated Stool Amount Small Small # Voids 1 1 1 Oxygen Devices in Use Now: None Neurology Exam: General: Mild ill appearing elderly female, overweight, in no acute distress. HEENT: Normocephelic/atraumatic, sclera anicteric, mucous membranes moist Neck: Supple Chest: Clear to auscultation bilaterally. Mild erythema near the port and IV catheter access. Cardiovascular: Regular rate and rhythm without murmurs, rubs, gallops Spine: no evidence of hematoma or swelling near the LP puncture site. Extremities: No clubbing, cyanosis, or edema Neurological Findings: Awake, alert to self, place, and time. She has some difficulty repeating long phrases but was able to repeat much better than our first encounter. She was able to comprehend complex 2-3 step commands. She was able to read and name without any difficulties. She still has mild psychomotor slowing. She repeated to me the plan of care that was discussed with her today. CN: PERRL, EOM-I, normal confrontation testing. No facial asymmetry except for mild flattening of the NL fold and widening of the palpebral fissure on the right. Motor: [id number] bradykinesia. She can elevate both upper and lower extremities symmetrically against gravity. Sensory: intact light touch, pinprick, and temperature sensation throughout. Coordination: normal finger to nose but reduced alternative movements bilaterally. Gait: not assessed today, pt is in the ICU. Result Diagrams: 07/24/18 04:00 07/24/18 04:00 Additional Lab and Data: B12: 198 TSH: 4.34 Ammonia: 45 CSF ANALYSIS: WBC: 4 RBC: 8 Total cell count 50 Neutrophil: 12% Lymph 66% Microbiology and Other Data: Microbiology 07/21/18 13:00 Urine Culture - Final Urine No Growth (<1,000 CFU/mL) Diagnostic Imaging: - CT head without contrast 07/21: No acute intracranial abnormalities. Diffuse small vessel disease. -MRI brain without contrast 07/21: Area of DWI in the left parietal lobe. There is diffuse white matter changes suggestive of small vessel ischemia in the left cerebellum and bilateral periventricular region. - MRI brain with contrast 07/23: motion degraded study. No evidence of leptomeningeal disease or enhancement. Hyperintensity between the sulci in the subarachnoid space R>L hemisphere. - 2D TTECHO with bubble study 07/24: pending Assessment/Plan 1. Acute encephalopathy manifesting as hyperactive delirium 2. Acute left MCA vascular territory ischemic infarction 3. Hyperintensity in the subarachnoid space on brain MRI 4. JORDY 5. History of DVT 6. History of AML s/p chemotherapy HiDAC and AZA. 7. Dyslipidemia. 8. Lower range of normal for B12 Mrs. Valdez presented with acute word-finding difficulty and reported confusion. She was found to have mixed aphasia and right facial asymmetry on presentation, 07/21/2018, consistent with a small left MCA vascular territory infarction confirmed on MRI. The etiology of the stroke is unclear but given the cortical distribution and the lack of intra-extracranial large vessel disease, I suspect it may have been related to an embolic phenomenon, possible a cardiac source. She also has hypertension, dyslipidemia, and AML ( hypercoagulability of malignancy)- all increasing her risk for stroke. Given the current DVT, paradoxical emboli is also a possibility. Pending TTE. She was taking full dose Lovenox for DVT. She reported full compliance. The patient became agitated in the ER and received Haldol 5 mg IV. She was then transferred to and had to be moved to different rooms three times throughout the night, not related to her agitation. Subsequently she became delirious and agitated, trying to climb out of bed, and required a second dose of Haldol 5 mg IV the following morning. Therefore, I suspect the patient's acute encephalopathy was most likely related to a toxic-metabolic disturbance. She also had significantly elevated BPs on admission with SBP reaching as high as 214 mmHg (after administration of Haldol), which may explain a hypertensive encephalopathy. EEG on 07/22 showed moderate encephalopathy with frequent semi- rhythmic triphasic waves which supports a metabolic encephalopathy. After treating her BP and discontinuing the anti-psychotic agent, she is slowly showing significant cognitive improvement and is interacting with the examiner. She has minimal deficits related to her stroke, poor phrase repetition(mild conduction aphasia), but otherwise no lateralizing motor weakness. She has moderate bradykinesia and mild psychomotor delay that I suspect is related to Haldol use inducing extrapyramidal side effects. Please add Haldol to her allergy list. She has no history of dementia, hallucination, or REM behavioral sleep disorder to suspect Lewy-Body dementia. This was confirmed by Mr. Valdez today. I was concerned about LBD in her case given her reaction to Haldol during this hospitalization. I suspect, in concomitant with the stroke, Haldol may have caused the hypertensive urgency in this case, contributing to the encephalopathy. In regards to the abnormal MRI finding, I suspect the sulci hyperintensity is related to motion degraded artifact as the patient was moving, delayed contrast media in the subarachnoid space, or changes due to blood pooling from recent traumatic LP. The fact that her CSF fluid was bloody on tube 1+2, and it cleared up in tube 3+4 argues against SAH. Improvement in her clinical picture and a negative repeat CT head supports this conclusion. She does have JORDY this morning. This is multifactorial and could be related to dehydration, hypertension followed by hypotension, IV contrast, and Acyclovir. Defer further treatment to Dr. Márquez but the patient was started on IV fluids this morning, 100 mL/hr for 10 hours. Also acyclovir was discontinued. We agreed to also discontinue Lovenox until her kidney function improves. Recommendations: - Continue aspirin 81 mg daily - Continue atorvastatin 80 mg daily - Pending 2D TTE study. She may need a YULISA if TTE is negative. 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 - Continue B 12 supplements. After the 3 IM doses, continue cyanocobalamin 1, 000 mcg PO daily. - DVT prophylaxis: scds until Lovenox is restarted Time spent: 60 minutes of which >50% spent reviewing the medical records, examining the patient, and discussing the treatment plan as mentioned above. Dr. Polo will be covering the neurology service starting tomorrow. Please call for any questions or concerns. .
--- NOTE | 2018-07-24 08:55 | ECHO ---
Patient: PAN ALVARENGA [facility] Rec#: [id number] : 1945 Date: 07/24/2018 Age: 73y Height: 170.18 cm / 67.0 in Weight: 96.36 kg / 212.4 lbs Sex: F BSA: 2.07 Room#: [facility] Admit Date#: 07/21/2018 Type: Inpatient Referring: Juani Cochran Reading: Enmanuel Cabrera DO [employer] Machine Operator: Sara Diehl RDCS CC: Saira Little MD Transthoracic Echocardiogram Indication: CVA BP: 88/59 HR: 76 Rhythm: NSR Findings History: Acute myeloblastic leukemia, HTN, HLD, obesity, PE. Technical Comments: The study quality is fair. Completed at 0845. Left Ventricle: The left ventricular chamber size is decreased. Mild concentric left ventricular hypertrophy is observed.LV false tendon noted Global left ventricular wall motion and contractility are within normal limits. There is normal left ventricular systolic function. The estimated ejection fraction is 60-65%. Abnormal left ventricular diastolic function is observed. Left Atrium: The left atrial chamber size is normal. Right Ventricle: The right ventricular cavity size is normal. The right ventricular global systolic function is mildly reduced. Right Atrium: The right atrial cavity size is normal. Interatrial septum appears intact without evidence of shunting. The bubble study is negative. A patent foramen ovale is not demonstrated with color Doppler and agitated contrast. Aortic Valve: The aortic valve is trileaflet. The aortic valve leaflets are mildly thickened. There is no evidence of aortic regurgitation. There is no evidence of aortic stenosis. Mitral Valve: The mitral valve leaflets are mildly thickened. There is a trace of mitral regurgitation. There is no evidence of mitral stenosis. Tricuspid Valve: The tricuspid valve leaflets are normal. There is trace tricuspid regurgitation. Unable to estimate the right ventricular systolic pressure. There is no tricuspid stenosis. Pulmonic Valve: The pulmonic valve appears normal. There is a trace pulmonic regurgitation. There is no pulmonic stenosis. Pericardium: There is no significant pericardial effusion. Aorta: There is no dilatation of the ascending aorta. There is no dilatation of the aortic arch. The aortic root is normal in size. Pulmonary Artery: The main pulmonary artery is not well visualized. Venous: The inferior vena cava is dilated. There is less than 50% respiratory change in the inferior vena cava dimension. Contrast: Normal saline was used as contrast for the bubble study. Images 11 and 12. Intravenous contrast was used to help determine presence of intracardiac shunting. Conclusions The left ventricular chamber size is decreased. Mild concentric left ventricular hypertrophy is observed. Global left ventricular wall motion and contractility are within normal limits. There is normal left ventricular systolic function. The estimated ejection fraction is 60-65%. The left atrial chamber size is normal. The right ventricular cavity size is normal. The right ventricular global systolic function is mildly reduced. No significant valvular abnormalities noted Unable to estimate the right ventricular systolic pressure. The bubble study is negative. Compared to prior study from 11/2015, RV now appears mildly reduced and unable to estimate PASP. Previously RV was hyperdynamic and estimated PASP was mildly elevated Measurements Name Value Normal Range RVIDd (AP) 2D 3.3 cm (0.9 - 2.6) RVDdMajor (2D) 3.9 cm (2.2 - 4.4) RAd ISD 4CH 4.6 cm (3.4 - 4.9) RA (A4C)W 4 cm (2.9 - 4.6) IVSd (2D) 1.1 cm (0.6 - 1) LVPWd (2D) 1.1 cm (0.6 - 1) LVIDd (2D) 3.5 cm (3.6 - 5.4) LVIDs (2D) 2.7 cm - LV FS (2D) 23 % (25 - 45) Aortic Annulus 2 cm (1.4 - 2.6) Ao root diameter (2D) 2.8 cm (2.1 - 3.5) Ascending Ao 2.6 cm (2.1 - 3.4) Aortic arch 2.4 cm (1.8 - 3.4) LA dimension (AP) 2D 3.3 cm (2.3 - 3.8) LAd ISD 4CH 4.5 cm (2.9 - 5.3) LA ISD 4CH W 4 cm (2.5 - 4.5) Name Value Normal Range LA ESV BP (A/L) index 16 ml/m2 - Name Value Normal Range MV E-wave Vmax 0.5 m/sec - MV deceleration time 313 msec - MV A-wave Vmax 0.7 m/sec - MV E:A ratio 0.8 ratio - LV septal e' Vmax 0.07 m/sec - LV lateral e' Vmax 0.08 m/sec - LV E:e' septal ratio 7.14 ratio - LV E:e' lateral ratio 6.25 ratio - Name Value Normal Range AV Vmax 1.5 m/sec - AV VTI 27.1 cm - AV peak gradient 7 mmHg - AV mean gradient 5 mmHg - LVOT Vmax 1 m/sec - LVOT VTI 18.5 cm - LVOT peak gradient 4 mmHg - LVOT mean gradient 2 mmHg - ELLE Vmax 0.7 m/sec - Name Value Normal Range IVC diameter 2.5 cm - Name Value Normal Range PV Vmax 0.7 m/sec - PV peak gradient 2 mmHg -
--- NOTE | 2018-07-24 09:10 | EEG ---
ELECTROENCEPHALOGRAPHY: DATE OF SERVICE: 07/23/18 STUDY ORDERED: Juani Cochran MD. INDICATION: Mrs. Valdez is a 73-year-old female with moderate global encephalopathy. This EEG was obtained to evaluate for any progression or improvement of the encephalopathy when compared to the study from 07/22/18. MEDICATIONS: 1. Vitamin B12. 2. Heparin. 3. Thiamine. 4. Atorvastatin. 5. Metoprolol. 6. Acyclovir. 7. Mesalamine. 8. Aspirin. 9. Lorazepam. 10. Haldol. 11. The patient also received Valium 2 mg IV today. CLINICAL STATE: Purely drowsy. BACKGROUND: The background consisted of polymorphic moderate amplitude mixed frequencies between 3-7 Hz of theta and delta symmetrically. The background lacked organization of clearly defined anterior-posterior voltage and frequency gradients. There was no discernable posterior dominant rhythm. There were frequent, intermittent, rhythmic, 1-2 Hz delta activity mostly seen in the frontal region bilaterally lasting for 2-5 seconds (FIRDA). There were no clear epileptiform discharges. There were rare triphasic waves. Hyperventilation and photic stimulation were not performed. Throughout the recording, there were no electrographic seizures. IMPRESSION: This is an abnormal EEG due to the presence of diffuse slowing, frontal intermittent rhythmic delta activity, and rare triphasic waves. There were no epileptiform discharges. These findings are suggestive of mild-moderate , diffuse, encephalopathy of which both FIRDA and triphasic waves can be seen in toxic- metabolic encephalopathy. There has been significant improvement and reduced frequency of the triphasic waves when compared to the EEG from 07/22/18. [id number]/[facility] #: [id number] [facility]
--- NOTE | 2018-07-24 09:28 | PN ---
Progress Note - Progress Note Date of Service: 07/24/18 SOAP: Subjective: []No pain, she is oriented to conversation and answering questions. Says she feels a little better today. No PERLA. Transfered to ICU last night for possible subarachnoid hemorrhage. CT this am negative. Aspirin (Aspirin Ec Tab*) 81 mg PO DAILY [facility] Atorvastatin Calcium (Lipitor*) 80 mg PO 1700 [facility] Last Admin: 07/23/18 18:04 Dose: Not Given Cyanocobalamin (Vitamin B12 Inj *) 1,000 mcg IM DAILY [facility] Stop: 07/25/18 23:59 Last Admin: 07/23/18 13:40 Dose: 1,000 mcg Enoxaparin Sodium (Lovenox(*)) 150 mg SUBCUT Q24H [facility] Heparin Sodium (Porcine) (Heparin Flush Port (Ivad)) 5 ml FLUSH DAILY [facility]; Protocol Last Admin: 07/23/18 13:41 Dose: 5 ml Sodium Chloride (Ns 0.9% 1000 Ml*) 1,000 mls @ 100 mls/hr IV .PER RATE ONE Stop: 07/24/18 18:09 Latanoprost (Xalatan 0.005%*) 1 drop BOTH EYES BEDTIME [facility] Last Admin: 07/23/18 20:59 Dose: 1 drop Lorazepam (Ativan Inj*) 1 mg IV PUSH Q6H PRN PRN Reason: ANXIETY Last Admin: 07/23/18 12:00 Dose: 1 mg Mesalamine (Mesalamine Rectal Susp*) 4 gm ME BEDTIME [facility] Last Admin: 07/23/18 21:14 Dose: 4 gm Metoprolol Tartrate (Lopressor Tab*) 50 mg PO QAM [facility] Last Admin: 07/23/18 08:26 Dose: 50 mg Metoprolol Tartrate (Lopressor Tab*) 100 mg PO QPM [facility] Last Admin: 07/23/18 18:04 Dose: 100 mg Metoprolol Tartrate (Lopressor Iv*) 5 mg IV Q4H PRN PRN Reason: BLOOD PRESSURE Objective: [] Vital Signs Temp Pulse Resp BP Pulse Ox 97.0 F 71 19 119/63 92 07/24/18 08:00 07/24/18 09:01 07/24/18 09:01 07/24/18 09:01 07/24/18 09:01 Neuro - She is oriented to place, month, year. Improved from last year. She has weakness right arm and right leg. HEENT - No oral lesions. pale CTA Decreased S1S2 but regular on my exam, no murmur. +BS NT Obese. Ext +1 edema BL Cr 1.9, BUN 42 Assessment: 73 yo F w AML sp induction chemotherapy followed by maintenance AZA x 4 cycles, most recently in April 2018, p/w aphasia and encephalopathy and found to have an acute CVA. Hospital course complicated by delirium and metabolic encephalopathy, appears to be medication induced. Improving today but does not appear to be at baseline. Plan: 1. Neurological. Case discussed with neurology and delirium improving, possibly from Haldol. 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 Post LP and stable, can transfer out of ICU. 3. ARF. Likely dehydration and IVC. - Hydration today and follow. - Check Renal US tomorrow if not improved - Hold Lovenox today 4. CVA. Will continue ASA, Lipitor and plan PT and rehab. 5. AML. Has been stable off therapy, follow. 6. Continue B12 repletion. 8. Port looks fine, reaction to tape but if persistent, peripheral IV 7. DNR
[2018-07-24] MEDS: Metoprolol Tartrate TAB* 50 mg PO SCH (09:51)
[2018-07-24] MEDS: Aspirin EC TAB* 81 MG TAB.EC PO SCH (09:52)
[2018-07-24] MEDS: Cyanocobalamin INJ * 1,000 MCG/ML VIAL 1 ML VIAL IM SCH (09:58)
[2018-07-24] MEDS: Atorvastatin* 80 MG TAB PO SCH (17:36)
[2018-07-24] MEDS: Metoprolol Tartrate TAB* 100 MG TAB PO SCH (17:37)
[2018-07-24] MEDS: Latanoprost 0.005%* 2.5 ml BTL BOTH EYES SCH (20:39)
[2018-07-24] MEDS: MESALAMINE 4 GM/60 ML PR SCH (20:40)
[2018-07-24] MEDS ORDERED: Enoxaparin(*) 150 MG/ML 1 ML SYRINGE SUBCUT SCH (21:00)
[2018-07-25 05:19] LABS: ABS Basophils 0 10^3/ul (0-0.2); ABS Eosinophils 0.2 10^3/ul (0-0.6); ABS Lymphocytes 1.3 10^3/ul (1.0-4.8); ABS Monocytes 0.6 10^3/ul (0-0.8); ABS Neutrophils 2.7 10^3/ul (1.5-7.7); ABS Nucleated RBC 0 10^3/ul; Eosinophil % 4.2 % (0-6); Hematocrit 41 % (35-47); Hemoglobin 13.6 g/dl (12.0-16.0); Lymphocyte % 26.6 % (25-47); Mean Corpuscular HGB Conc 34 g/dl (31-36); Mean Corpuscular Hemoglobin 34 pg (27-31); Mean Corpuscular Volume 101 fL (80-97); Mean Platelet Volume 9.4 fL (7.4-10.4); Nucleated Red Blood Cells % 0.1; Platelet Count 124 10^3/ul (150-450); Red Blood Count 4.01 10^6/ul (4.00-5.40); Red Cell Distribution Width 16 % (10.5-15); White Blood Count 4.8 10^3/ul (3.5-10.8)
[2018-07-25 05:36] LABS: EGFR Non-African American 44.6 (>60)
[2018-07-25] MEDS: Metoprolol Tartrate TAB* 50 mg PO SCH (09:41)
[2018-07-25] MEDS: Aspirin EC TAB* 81 MG TAB.EC PO SCH (09:41)
[2018-07-25] MEDS: Cyanocobalamin INJ * 1,000 MCG/ML VIAL 1 ML VIAL IM SCH (09:43)
--- NOTE | 2018-07-25 12:02 | PN ---
Progress Note - Progress Note Date of Service: 07/25/18 SOAP: Subjective: []Much better. She appears to be at baseline MS. Oriented and conversant , she wants to go home. Did not sleep well last night in hospital. Aspirin (Aspirin Ec Tab*) 81 mg PO DAILY [facility] Last Admin: 07/25/18 09:41 Dose: Not Given Atorvastatin Calcium (Lipitor*) 80 mg PO 1700 [facility] Last Admin: 07/24/18 17:36 Dose: Not Given Cyanocobalamin (Vitamin B12 Inj *) 1,000 mcg IM DAILY [facility] Stop: 07/25/18 23:59 Last Admin: 07/25/18 09:43 Dose: 1,000 mcg Heparin Sodium (Porcine) (Heparin Flush Port (Ivad)) 5 ml FLUSH DAILY [facility]; Protocol Last Admin: 07/25/18 09:45 Dose: 5 ml Latanoprost (Xalatan 0.005%*) 1 drop BOTH EYES BEDTIME [facility] Last Admin: 07/24/18 20:39 Dose: 1 drop Mesalamine (Mesalamine Rectal Susp*) 4 gm MI BEDTIME [facility] Last Admin: 07/24/18 20:40 Dose: Not Given Metoprolol Tartrate (Lopressor Tab*) 50 mg PO QAM [facility] Last Admin: 07/25/18 09:41 Dose: 50 mg Metoprolol Tartrate (Lopressor Tab*) 100 mg PO QPM [facility] Last Admin: 07/24/18 17:37 Dose: 100 mg Metoprolol Tartrate (Lopressor Iv*) 5 mg IV Q4H PRN PRN Reason: BLOOD PRESSURE Objective: [] Vital Signs Temp Pulse Resp BP Pulse Ox 97.6 F 82 18 147/53 96 07/25/18 07:39 07/25/18 07:39 07/25/18 08:00 07/25/18 07:39 07/25/18 07:39 Neuro - Converseing and oriented, baseline MS. Did not do full exam. HEENT - No oral lesions. pale CTA Decreased S1S2 but regular on my exam, no murmur. +BS NT Obese. Ext +1 edema BL Cr 1.19 (down) Assessment: 73 yo F w AML sp induction chemotherapy followed by maintenance AZA x 4 cycles, most recently in April 2018, p/w aphasia and encephalopathy and found to have an acute CVA. Hospital course complicated by delirium and metabolic encephalopathy, appears to be medication induced. Marked improvement today and has returned to BL MS. She would like to go home and I feel that is reasonable. Plan: 1. CVA. Question of embolic or thrombotic. Occured on lovenox but she is worried about ASA. Reasonable to continue Lovenox alone and will follow. 2. Anticoagulation. Will re-start Lovenox 150 mg sq daily on discharge. Will need to follow CrCL with BMP on Friday. 3. ARF. Improving, stay hydrated an check on Friday. 4. AML. Has been stable off therapy, follow. 5. Continue B12 repletion.
[2018-07-25 12:04] VITALS: BP 147/69
[2018-07-25 17:14] LABS: CSF VDRL Negative (Negative)
--- NOTE | 2018-07-26 02:30 | PN ---
FOLLOWUP VISIT: DATE OF SERVICE: 07/25/18 HISTORY OF PRESENT ILLNESS: Lakeisha Valdez is a 73-year-old woman with history of leukemia (AML), who was admitted to hospital with right facial droop and expressive aphasia and seen by Dr. Cochran. She was found to have a very small left parietal cortical lesion noted on MRI, which was questioned to be cardioembolic. She was on Lovenox for management of DVT. CTA of the brain and neck did not show any significant lesion. Aspirin was added. This morning, it was refused by the patient secondary to history of GI bleed. Her course has been complicated by worsening confusion in the setting of decreased sleep and Haldol. She has been noted to have a low normal B12 and was put on supplementation. She had further workup with a lumbar puncture, which showed protein elevated at 58, glucose was 63, she had 4 white blood cells , 8 red blood cells. It was clear and colorless and it was thought to be some changes secondary to stroke. Her AIDEN was within normal limits. She had an MRI with contrast after the LP, which showed some diffuse sulcal FLAIR changes. Repeat CT after the scan was normal. There was no evidence of bleed. She had an echocardiogram, which was negative for bubble study. This was a transthoracic study. She had an ejection fraction of 60% to 65% with mild left ventricular hypertrophy. EEG showed triphasic waves and slowing. On today's visit, Lakeisha Valdez was able to critically appraise some of her treatment during the admission. She was able to give further history and arguments for and against medication. PHYSICAL EXAMINATION: Her most recent temperature was 97.6 degrees Fahrenheit, her heart rate was 82 and regular, respiratory rate was 18, saturation was 96%, blood pressure was 147/53. She had a regular cardiac rhythm. Her lungs were clear to auscultation. There was no carotid bruit. She was awake, alert, tired appearing, able to tell me where she was located. She was able to give me detailed history of things that have occurred in the last 24 hours regarding her care as well as some of her medical history. She had full extraocular movements with some saccadic intrusions. Her facial expression was symmetric without dysarthria. There was no pronator drift. She gave good strength in her upper and lower extremities with normal [id number] and mcxm-dh-[id number] movements. When she walked, she had increased stance. She has truncal obesity. MAR was reviewed. She has been on Lovenox at 150 mg q.24 hours. It appears her last dose was on 07/24/18. DIAGNOSTIC STUDIES/LAB DATA: Data was reviewed including reviewing directly MRI of the brain from 07/21/18, MRI of the brain with contrast from 07/23/18, CT of the brain from 07/24/18, review of CTA brain and echocardiogram reports, EEG reports. Her CBC showed elevated MCV and MCH at 101 and 34, platelet count was low at 124. Her metabolic panel did show elevated BUN at 44, creatinine 1.19 , BUN/creatinine ratio is 37. AIDEN was 0.5. IMPRESSION AND PLAN: A 73-year-old right-handed woman with a history of leukemia, admitted with right facial droop and expressive aphasia, with small cortical lesion noted on MRI in the periphery in the left hemisphere. The type of lesion that is noted is questioned to be embolic given the peripheral location. She is on Lovenox for deep venous thrombosis albeit it is once a day dosing. She is approximately 96 kg and she is on 150 q.24. It appears this has been stopped, as there was questioned to be bleeding on MRI. CT showed that there was no bleeding. Aspirin was added to her regimen for prevention of stroke. Unfortunately, she has had history of GI bleed. The patient refused medication. This was discussed with Dr. Márquez, and he will talk about pros and cons further with the patient. He is going to review her dose of Lovenox and make sure she is on therapeutic dosing. No patent foramen ovale was noted on echo. Atrial fibrillation or intraventricular clot would be treated with full anticoagulation on Lovenox. Her course has been complicated by confusion in the setting of decreased sleep and Haldol use. She is progressively improving. The psychomotor slowing described suggests that it may have been the side effect of Haldol. She does have low normal B12 and is on supplementation. Overall, she is doing better. Please call if further neurologic input is needed. [id number]/[facility] #: [id number] MTDD
--- NOTE | 2018-07-26 05:40 | DS ---
DISCHARGE SUMMARY: DATE OF ADMISSION: 07/21/18. DATE OF DISCHARGE: 07/25/18. DISCHARGE DIAGNOSES: 1. Left middle cerebral artery cerebrovascular accident. 2. Delirium secondary to Haldol. 3. AML, in remission. 4. History of thrombophilia, on Lovenox. HOSPITAL COURSE: Please see history and physical from 07/21/18 for details of presentation. She came in with aphasia and confusion on the morning of . Speech was difficult. She could not put her shoes on. She came into the emergency room and on exam the patient was found to be awake, and oriented to person and place with a receptive aphasia. She was found to have right central facial weakness as well as a right-sided pronator drift. She had an MRI of the brain that showed small parietal acute CVA. On the first night of admission, , she was moved to multiple rooms because of agitated roommates and had multiple sedative medications including several doses of Haldol. She subsequently developed acute mental status changes, and she was markedly more confused as well as developing kind of a masked expressionless persona. Neuro, she had evaluation that included a repeat MRI as well as a lumbar puncture. Lumbar puncture did not show evidence of infection or malignancy. She had mildly elevated protein. MRI done immediately after the lumbar puncture showed question of a small arachnoid hemorrhage with followup CT scan was negative. Because of this her anticoagulation was held mid hospitalization. She had an EEG that showed marked metabolic encephalopathy. She cleared spontaneously with conservative management. She was better yesterday than she had been during the earlier part of the hospitalization, and today she is back to baseline mental status, anxious to go home. She has some mild headaches. Because of CVA there was a discussion of starting aspirin 81 mg a day, but she would rather not start new medications at this time given history of GI bleed, and that she is already on Lovenox, we felt this was reasonable. Plan will be discharge her to home on Lovenox and with close followup. No additional neurologic evaluation at this time. Her blood counts throughout the admission remained stable without evidence of recurrent AML, though she does have residual macrocytosis and mild thrombocytopenia. DISCHARGE MEDICATIONS: 1. Atorvastatin 81 mg p.o. daily, which is new. 2. Latanoprost eye drops, which she will continue. 3. Mesalamine rectal suppository at bedtime as needed. 4. Metoprolol 40 mg q.a.m. and 100 mg q.p.m. 5. Acyclovir 20 mg p.o. b.i.d. 6. Allopurinol 300 mg a day. 7. Vitamin D3 5000 daily. 8. Vitamin B12 1000 mg daily (increase from twice a week). 9. Colace 100 mg b.i.d. 10. Lovenox 150 mg daily. 11. Lactobacillus 1 tab daily. 12. Loratadine 10 mg a day. 13. Citrucel 100 mg a day. 14. Ondansetron 4 mg p.o. p.r.n. 15. MiraLAX twice a day p.r.n. 16. Potassium 20 mEq a day. 17. Compazine 5 mg a day q.6 p.r.n. 18. Senna 1 tablet daily. 19. Tramadol 1 tablet of 50 mg every 6 hours p.r.n. for pain. 20. Kenalog cream topical b.i.d. as needed. 21. Pendroy-3 capsule daily. FOLLOWUP: Hospital course is also complicated by a rise in her renal function after the CT scan. It is largely corrected today. She is going to go home on allopurinol and Lovenox until she return to baseline renal function. We will have her return to clinic on Friday for a BMP. She will follow up with Dr. Baca or another practitioner within the next 1 week. [id number]/[facility] #: [id number] MTDD
== END 2018-07-25 14:51 | disposition home health service (06) | DRG 64 ==
LOC: ED 10:09 → MEDTELE 16:19 → ICU 07-23 22:37 → MEDTELE 07-24 13:58
PROVIDERS: ADMIT Internal Medicine Hematology & Oncology; ATTEND Internal Medicine Hematology & Oncology
PROC: 009U3ZX Drainage of Spinal Canal, Percutaneous Approach, Diagnostic (ICD-10-PCS; principal; 2018-07-23)
PROC: 4A10X4Z Monitoring of Central Nervous Electrical Activity, External Approach (ICD-10-PCS; 2018-07-23)
DX: I63.512 Cerebral infarction due to unspecified occlusion or stenosis of left middle cerebral artery (principal); G93.41 Metabolic encephalopathy; C92.01 Acute myeloblastic leukemia, in remission; D68.59 Other primary thrombophilia; F19.921 Other psychoactive substance use, unspecified with intoxication with delirium; N17.9 Acute kidney failure, unspecified; R47.01 Aphasia; R41.0 Disorientation, unspecified; R29.810 Facial weakness; I10 Essential (primary) hypertension; E78.5 Hyperlipidemia, unspecified; M10.9 Gout, unspecified; J30.9 Allergic rhinitis, unspecified; E66.9 Obesity, unspecified; I16.0 Hypertensive urgency; D75.89 Other specified diseases of blood and blood-forming organs; D69.6 Thrombocytopenia, unspecified; R29.705 NIHSS score 5; E53.8 Deficiency of other specified B group vitamins; Z66 Do not resuscitate; F41.9 Anxiety disorder, unspecified; M19.90 Unspecified osteoarthritis, unspecified site; T43.4X5A Adverse effect of butyrophenone and thiothixene neuroleptics, initial encounter; Y92.239 Unspecified place in hospital as the place of occurrence of the external cause; Z88.5 Allergy status to narcotic agent; Z88.8 Allergy status to other drugs, medicaments and biological substances; Z88.1 Allergy status to other antibiotic agents; Z91.011 Allergy to milk products; Z91.018 Allergy to other foods; Z80.0 Family history of malignant neoplasm of digestive organs; Z86.718 Personal history of other venous thrombosis and embolism; Z79.01 Long term (current) use of anticoagulants; Z86.711 Personal history of pulmonary embolism; Z68.33 Body mass index [BMI] 33.0-33.9, adult
CPT/HCPCS: 36415; 70450; 70496; 70498; 70551; 70552; 80053; 80061; 81003; 81015; 82140; 82164; 82607; 82945; 83090; 83605; 83735; 83921; 84157; 84443; 84484; 85025; 85610; 85730; 86038; 86255; 86592; 87070; 87086; 87205; 87529; 87798; 87899; 89051; 93005; 93306; 95816; 95819; 99222; 99233; 99284; A9270-GY; A9579; G8978-GP-CL; G8979-GP-CI; G8987-GO-CM; G8988-GO-CJ; J1630; J1642; J1650; J2060; J3411; J3420; J3490; Q9967

== ENCOUNTER → 2019-07-30 06:44 | Day surgery (SDC) | payer MEDICARE, BC ==
[~2019-07-30 06:44] MED LIST changes: -Buffered Lidocaine 1% SYR 3ML* 3 ML/SYR SYRINGE INTRADERM ONE; +Flumazenil* 0.1 MG/ML 5 ML MDV ONE; +Heparin 2 UNITS/ML IVPREMIX* 1,000 ML IV ONE; +Iohexol 350 (CONTRAST) 200 ML MDV IV ONE; +LORazepam TAB(*) 1 MG ONE; +Lidocaine 1% INJ* 10 MG/ML 30 ML SDV ONE; +Midazolam* 1 MG/ML 5 ML VIAL (5 MG) ONE; +Naloxone* 0.4 MG/ML 1 ML VIAL ONE; +fentaNYL* 50 MCG/ML 2 ML VIAL (100 MCG VIAL) ONE
[2019-07-30 08:27] LABS: Activated Partial Thrombo Time 32.7 seconds (26.0-38.0); INR 0.97 (0.82-1.09)
[2019-07-30 08:33] LABS: Albumin 3.8 g/dL (3.2-5.2); Albumin/Globulin Ratio 1.3 (1-3); Calcium 9.2 mg/dL (8.6-10.3); EGFR African American 82.7 (>60); EGFR Non-African American 68.3 (>60); Potassium 4.4 mmol/L (3.5-5.0); Total Bilirubin 0.5 mg/dL (0.2-1.0); Total Protein 6.8 g/dL (6.4-8.9)
[2019-07-30 10:54] VITALS: BP 174/85
--- NOTE | 2019-07-30 11:17 | PN ---
Progress Note - Progress Note Date of Service: 07/30/19 SOAP: Subjective: No pain at right neck or elsewhere. No chest pain. No SOB. Objective: Selected Entries 07/30/19 10:34 Heart Rate 67 Respiratory 20 Rate Blood Pressure 174/85 (mmHg) Blood Pressure 129 Mean O2 Sat by Pulse 89 Oximetry Right neck is soft, nontender Dressing is CDI No abdominal tenderness to palpation Lung CTAB Assessment: 74 YOF s/p cavogram and IVC filter removal without complication. Plan: 1. Anticoagulation is okay and advised. 2. IR clinic nurse will call patient 08/02/19 to confirm smooth recovery. 3. DC home.
== END | disposition home or self-care (01) ==
LOC: CHICATH 06:44
PROVIDERS: ATTEND Radiology Diagnostic Radiology
DX: Z86.711 Personal history of pulmonary embolism (principal); Z86.718 Personal history of other venous thrombosis and embolism; Z79.01 Long term (current) use of anticoagulants; I10 Essential (primary) hypertension; E87.6 Hypokalemia; C95.90 Leukemia, unspecified not having achieved remission; E53.9 Vitamin B deficiency, unspecified; E55.9 Vitamin D deficiency, unspecified
CPT/HCPCS: 36415; 37193; 75825; 76937; 80053; 85610; 85730; 88300; 99156; 99157; A9270-GY; C1769; C1894; J1644; J2250; J2310; J3010